=== PATIENT | male | born 1945 | race Caucasian/White ===

== ENCOUNTER 2018-12-11 11:27 | Observation (INO) | payer OTHER, MEDICARE ==
[2018-12-11 12:08] LABS: Absolute Lymphocytes (CBC) 1.5 K/uL (0.7-4.9); Absolute Monocytes 0.7 K/uL (0.1-1.3); Absolute Neutrophil 3.7 K/uL (1.8-8.0); Basophils % 0.7 % (0-1.3); Eosinophils % 2.4 % (0-4.4); Hematocrit 42.3 % (39.6-49.0); Lymphocytes % 24.3 % (15.3-44.8); MPV 9.6 fL (7.6-11.3); Monocytes % 11.8 % (3.3-12.3); RBC Red Blood Cell Count 4.32 M/uL (4.33-5.43)
[2018-12-11 12:42] LABS: Albumin 3.5 g/dL (3.4-5.0); Bilirubin Total 0.7 mg/dL (0.2-1.0); Magnesium 1.9 mg/dL (1.8-2.4); Potassium 4.4 mmol/L (3.5-5.1); Protein, Total 6.9 g/dL (6.4-8.2); Troponin (Emerg Dept Use Only) 0.03 ng/mL (0.0-0.045)
--- NOTE | 2018-12-11 12:56 | RAD REPORT ---
EXAM DESCRIPTION: Lizzeth Single View12/11/2018 12:47 pm CLINICAL HISTORY: Chest pain COMPARISON: 2017 FINDINGS: The lungs appear clear of acute infiltrate. The heart is normal size IMPRESSION: No acute abnormalities displayed
--- NOTE | 2018-12-11 13:33 | RAD REPORT ---
EXAM DESCRIPTION: CT - Chest For Pe Angio - 12/11/2018 1:21 pm CLINICAL HISTORY: Chest pain, shortness of breath, elevated D-dimer COMPARISON: None. TECHNIQUE: Dynamically enhanced 3 mm thick images of the chest were obtained during administration o f approximately 150mL Isovue 370 IV contrast. Coronal and oblique MIP reconstruction images were gene rated and reviewed. Exam utilizes a protocol to evaluate the pulmonary arterial tree. All CT scans are performed using dose optimization technique as appropriate and may include automated exposure control or mA/KV adjustment according to patient size. FINDINGS: No pulmonary emboli are identified. The aorta as imaged shows no acute or suspicious finding. No pericardial thickening or effusion. Card iomegaly is present. No acute infiltrate in the lung parenchyma. There is a pleural abutting nodule or area of pleural thi ckening in the lateral upper left lung field (image 30/95) measuring 12 x 4 mm. There is evidence for old rib trauma in this region and this may be reactive pleural thickening from old trauma. This can be monitored with re-evaluation CT imaging in 6 months. No other area of pleural thickening or nodula rity. No suspicious nodule of the lung parenchyma. No pleural effusion or pleural thickening. No mediastinal or hilar suspicious masses. No chest wall masses or abnormal axillary lymphadenopathy. IMPRESSION: No pulmonary emboli identified. Pleural abutting nodule or focus of pleural thickening lateral left upper lung field warranting re-ev aluation CT imaging in 6 months.
[2018-12-11] MEDS ORDERED: HEPARIN 5000 UNIT/ML 1 ML VIAL ONE (13:37)
[2018-12-11] MEDS ORDERED: HEPARIN/D5W 25,000 UNIT/500 ML BAG IV ONE (13:37)
--- NOTE | 2018-12-11 14:14 | EDPHYS ---
Physician Documentation [facility] Name: Jhonatan Haro Sr Age: 73 yrs Sex: Male : 1945 Arrival Date: 12/11/2018 Time: 11:31 Bed 2 Private MD: Unknown, Unknown ED Physician Kan Lawson HPI: 12/11 11:30 This 53 yrs old Male presents to ER via Unassigned with complaints of Syncope.ps1 11:30 Patient brought in by EMS for reported possible STEMI. Pt does not have EKG with STEMI ps1 criteria. Had syncopal event x2 now diaphoretic while working in [employer]. 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 No hx of cardiac hx. No CP at this time. On gabapentin. . Historical: - Allergies: 11:37 No Known Allergies; sg - Home Meds: 11:37 gabapentin 300 mg oral cap 1 cap 3 times per day [Active]; sg - PMHx: 11:37 Diabetes - NIDDM; sg - PSHx: 11:37 Appendectomy; sg - Immunization history:: Adult Immunizations up to date. - Social history:: Smoking status: Patient/guardian denies using tobacco. - Ebola Screening: : Patient negative for fever greater than or equal to 101.5 degrees Fahrenheit, and additional compatible Ebola Virus Disease symptoms Patient denies exposure to infectious person Patient denies travel to an Ebola-affected area in the 21 days before illness onset No symptoms or risks identified at this time. ROS: 11:30 Constitutional: Negative for fever, chills, and weight loss, Eyes: Negative for injury, ps1 pain, redness, and discharge, ENT: Negative for injury, pain, and discharge, Cardiovascular: Negative for chest pain, palpitations, and edema, Respiratory: Negative for shortness of breath, cough, wheezing, and pleuritic chest pain, Abdomen/GI: Negative for abdominal pain, nausea, vomiting, diarrhea, and constipation, MS/Extremity: Negative for injury and deformity. 11:30 Skin: Positive for diaphoresis. 11:30 Neuro: Positive for syncope. Exam: 11:30 Constitutional: This is a well developed, well nourished patient who is awake, alert, ps1 and in no acute distress. Head/Face: Normocephalic, atraumatic. Eyes: Pupils equal round and reactive to light, extra-ocular motions intact. Lids and lashes normal. Conjunctiva and sclera are non-icteric and not injected. Chest/axilla: Normal chest wall appearance and motion. Nontender with no deformity. No lesions are appreciated. Cardiovascular: Regular rate and rhythm. No gallops, murmurs, or rubs. Normal PMI, no JVD. No pulse deficits. Respiratory: Lungs have equal breath sounds bilaterally, clear to auscultation and percussion. No rales, rhonchi or wheezes noted. No increased work of breathing, no retractions or nasal flaring. Abdomen/GI: Soft, non-tender, with normal bowel sounds. No distension or tympany. No guarding or rebound. No evidence of tenderness throughout. 11:30 Skin: Appearance: diaphoresis is noted. Vital Signs: 11:30 BP 105 / 67; Pulse 60; Resp 18; Temp 97.2; Pulse Ox 98% on R/A; Pain 2/10; sg 13:11 Weight 105.69 kg; ph 15:54 BP 124 / 77; Pulse 58; Resp 17 S; Pulse Ox 100% on R/A; Pain 0/10; sg NIH Stroke Scale Scores: 11:31 NIHSS Score: 0 sg MDM: 11:35 Patient medically screened. ps1 12/11 11:30 Order name: CBC with Diff 12/11 11:30 Order name: Magnesium 12/11 11:30 Order name: NT PRO-BNP 12/11 11:30 Order name: Troponin (emerg Dept Use Only) ps1 12/11 11:30 Order name: CMP ps1 12/11 11:38 Order name: DD ps1 12/11 13:27 Order name: CBC with Automated Diff; Complete Time: 14:06 EDMS 12/11 13:27 Order name: D-Dimer; Complete Time: 14:06 EDMS 12/11 13:27 Order name: Comprehensive Metabolic Panel; Complete Time: 14:06 EDMS 12/11 13:27 Order name: Troponin (Emerg Dept Use Only); Complete Time: 14:06 EDMS 12/11 13:27 Order name: NT PRO-BNP; Complete Time: 14:06 EDMS 12/11 13:27 Order name: Magnesium; Complete Time: 14:06 EDMS 12/11 11:30 Order name: EKG; Complete Time: 13:29 ps1 12/11 11:30 Order name: Cardiac monitoring; Complete Time: 11: ps1 12/11 11:30 Order name: EKG - Nurse/Tech; Complete Time: : ps1 12/11 11:30 Order name: IV Saline Lock; Complete Time: : ps1 12/11 11:30 Order name: Labs collected and sent; Complete Time: : ps1 12/11 11:30 Order name: O2 Per Protocol; Complete Time: : ps1 12/11 11:30 Order name: O2 Sat Monitoring; Complete Time: : ps1 12/11 13:27 Order name: RAD; Complete Time: 14:06 EDMS 12/11 13:27 Order name: EKG Electrocardiogram EDMS 12/11 13:27 Order name: Chest For Pe Angio; Complete Time: 14:06 EDMS 12/11 13:27 Order name: Echo with Doppler EDMS 12/11 13:27 Order name: Carotid Artery Bilateral; Complete Time: 14:39 EDMS EC: Rate is 62 beats/min. Rhythm is regular. QRS [place] is Normal. [place] interval is normal. QRS ps1 interval is normal. QT interval is normal. Q waves are Present in leads II, III, aVF. T waves are Flattened in leads I, aVL, V5, V6. No ST changes noted. Clinical impression: NSR w/ Non-specific ST/T Changes. Interpreted by me. Administered Medications: 16:10 Not Given (Patient Refused): Heparin (DVT/PE- Bolus per protocol) - HEParin 80 units/kg sg IVP once; Max 8,000 units 16:11 Not Given (Patient Refused): Heparin (DVT/PE Drip) 18 units/kg/hr - (HEParin 36615 sg units, D5W 500 ml) IV at calculated rate Per protocol; Max initial rate 1800 units/hr Disposition: 12/11/18 14:13 Hospitalization ordered by Stanton Alba for Observation. Preliminary diagnosis is Syncope and collapse. - Bed requested for Telemetry/MedSurg (observation). - Status is Observation. sg - Condition is Stable. - Problem is new. - Symptoms are resolved. UTI on Admission? No NIH Stroke Scale - NIH Stroke Score Date: 12/11/2018 Time: 11:31 Total Score = 0 1a. Level of Consciousness (LOC) - 0(Alert) 1b. Level of Consciousness (LOC) (Year \T\ Age) - 0(Both) 1c. LOC Commands (Open \T\ Closes Eyes/Truck Driver Instructor) - 0(Both) 2. Best Gaze (Lateral Gaze Paresis) - 0(Normal) 3. Visual Field Loss - 0(No visual loss) 4. Facial Palsy - 0(Normal) 5a. Left Arm: Motor (10-second hold) - 0(No drift) 5b. Right Arm: Motor (10-second hold) - 0(No drift) 6a. Left Leg: Motor (5-second hold - always test supine) - 0(No drift) 6b. Right Leg: Motor (5-second hold - always test supine) - 0(No drift) 7. Limb Ataxia (finger/nose \T\ heel/haney - test with eyes open) - 0(Absent) 8. Sensory Loss (pinprick arms/legs/face) - 0(Normal) 9. Best Language: Aphasia (description/naming/reading) - 0(No aphasia) 10. Dysarthria (speech clarity - read or repeat words) - 0(Normal) 11. Extinction and Inattention (visual/tactile/auditory/spatial/personal) - 0(No abnormality) Initials: sg Signatures: Dispatcher [employer] EDMarisol Merino RN RN dw Gay, Steven, RN RN sg Williams, Irene, RN RN Kan Lawson MD MD ps1 Corrections: (The following items were deleted from the chart) 13:32 13:30 Chest For PE Angio+CT.RAD.BRZ ordered. EDLA EDLA 13:52 13:29 Chest Single View+RAD.RAD.BRZ ordered. EDLA EDMS 14:36 14:25 Head Brain Wo Cont+CT.RAD.BRZ ordered. EDLA EDMS 14:54 14:13 Hospitalization Ordered by Stanton Alba DO for Observation. Preliminary diagnosis is Syncope and collapse. Bed requested for Telemetry/MedSurg (observation). Status is Observation. Condition is Stable. Problem is new. Symptoms are resolved. UTI on Admission? No. ps1 15:05 14:54 12/11/2018 14:13 Hospitalization Ordered by Stanton Alba DO for dw Observation. Preliminary diagnosis is Syncope and collapse. Bed requested for Telemetry/MedSurg (observation). Status is Observation. Condition is Stable. Problem is new. Symptoms are resolved. UTI on Admission? No. dw 16:09 15:05 12/11/2018 14:13 Hospitalization Ordered by Stanton Alba DO for sg Observation. Preliminary diagnosis is Syncope and collapse. Bed requested for Telemetry/MedSurg (observation). Status is Observation. Condition is Stable. Problem is new. Symptoms are resolved. UTI on Admission? No. dw
--- NOTE | 2018-12-11 14:14 | ER ---
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 Transition of care: patient was not received from another setting of care. Onset of symptoms was December 11, 2018. Risk Assessment: Do you want to hurt yourself or someone else? Patient reports no desire to harm self or others. Initial Sepsis Screen: Does the patient meet any 2 criteria? No. Patient's initial sepsis screen is negative. Does the patient have a suspected source of infection? No. Patient's initial sepsis screen is negative. Care prior to arrival: Medication(s) given: ASA, 81 mg, x 1, Nitroglycerin, x 2, IV initiated. 20 GA, in the right antecubital area, Glucose check: 181 Oxygen administered. via nasal cannula. 11:31 Acuity: ROBLES 2 11:31 Method Of Arrival: EMS: [facility] Triage Assessment: 11:37 General: Appears in no apparent distress. ill, well groomed, well developed, well sg nourished, Behavior is calm, cooperative, appropriate for age. Pain: Denies pain. Neuro: Level of Consciousness is awake, alert, obeys commands, Oriented to person, place, time, Track Fitter are equal bilaterally Moves all extremities. Speech is normal, Facial symmetry appears normal, Pupils are PERRLA, Reports weakness throughout entire body. Cardiovascular: Capillary refill is brisk in bilateral fingers Patient's skin is warm and dry. Chest pain is denied. Respiratory: Airway is patent Respiratory effort is even, unlabored, Respiratory pattern is regular, symmetrical. Derm: Skin is fragile, is thin, Skin is clammy, Skin is pale, Skin temperature is cool. Musculoskeletal: No signs and/or symptoms reported regarding the musculoskeletal system. Historical: - Allergies: 11:37 No Known Allergies; sg - Home Meds: 11:37 gabapentin 300 mg oral cap 1 cap 3 times per day [Active]; sg - PMHx: 11:37 Diabetes - NIDDM; sg - PSHx: 11:37 Appendectomy; sg - Immunization history:: Adult Immunizations up to date. - Social history:: Smoking status: Patient/guardian denies using tobacco. - Ebola Screening: : Patient negative for fever greater than or equal to 101.5 degrees Fahrenheit, and additional compatible Ebola Virus Disease symptoms Patient denies exposure to infectious person Patient denies travel to an Ebola-affected area in the 21 days before illness onset No symptoms or risks identified at this time. Screenin:30 Abuse screen: Denies threats or abuse. Denies injuries from another. Nutritional sg screening: No deficits noted. Tuberculosis screening: No symptoms or risk factors identified. Never had TB. Fall Risk None identified. Assessment: 12:30 General: Appears in no apparent distress. well groomed, well developed, well nourished, sg Behavior is calm, cooperative, appropriate for age. Pain: Denies pain. Neuro: No deficits noted. Neuro: Level of Consciousness is awake, alert, obeys commands, Oriented to person, place, time, Track Fitter are equal bilaterally Moves all extremities. Full function Gait is steady, Speech is normal, Facial symmetry appears normal. Cardiovascular: Heart tones S1 S2 present Capillary refill is brisk in bilateral fingers Patient's skin is warm and dry. Chest pain is denied. Respiratory: Airway is patent Respiratory effort is even, unlabored, Respiratory pattern is regular, symmetrical, Breath sounds are clear Denies shortness of breath labored breathing, pain with respiration. GI: Abdomen is round non-distended, Bowel sounds present X 4 quads. : No signs and/or symptoms were reported regarding the genitourinary system. EENT: No signs and/or symptoms were reported regarding the EENT system. Derm: Skin is pink, warm \T\ dry. Musculoskeletal: No signs and/or symptoms reported regarding the musculoskeletal system. 12:40 Reassessment: Strict Bedrest precautions implemented, pt and pt family stated sg understanding. 13:47 Reassessment: pt remains off the unit in radiology at this time. sg 14:40 Reassessment: Patient appears in no apparent distress at this time. Patient and/or sg family updated on plan of care and expected duration. Pain level reassessed. Patient is alert, oriented x 3, equal unlabored respirations, skin warm/dry/pink. Patient denies pain at this time. Patient states feeling better. 15:40 Reassessment: Patient appears in no apparent distress at this time. Patient and/or sg family updated on plan of care and expected duration. Pain level reassessed. Patient is alert, oriented x 3, equal unlabored respirations, skin warm/dry/pink. pt updated on POC and need for imaging of the head, pt informed of order for blood thinning medication Heparin, pt stated understanding, reports would like to wait for imaging to be completed prior to administration of medication Patient states feeling better. Vital Signs: 11:30 BP 105 / 67; Pulse 60; Resp 18; Temp 97.2; Pulse Ox 98% on R/A; Pain 2/10; sg 13:11 Weight 105.69 kg; ph 15:54 BP 124 / 77; Pulse 58; Resp 17 S; Pulse Ox 100% on R/A; Pain 0/10; sg NIH Stroke Scale Scores: 11:31 NIHSS Score: 0 sg ED Course: 11:29 Kan Lawson MD is Attending Physician. ps1 11:31 Patient arrived in ED. ag5 11:31 Unknown, Unknown is Private Physician. ag5 11:31 Arm band placed on. sg 11:34 Triage completed. sg 11:39 Haroldo Walton, RN is Primary Nurse. sg 11:40 EKG done, by medical radiation tech. reviewed by Kan Lawson MD. at1 12:30 Patient has correct armband on for positive identification. sg 12:42 X-ray completed. Portable x-ray completed in exam room. Patient tolerated procedure jb2 well. 13:27 Chest Single View In Process Unspecified. iw 13:27 Chest For Pe Angio In Process Unspecified. iw 13:43 Carotid Artery Bilateral In Process Unspecified. EDMS 13:57 Patient moved back from radiology. sg 14:09 Ultrasound completed. hr 14:13 Stanton Alba DO is Hospitalizing Provider. ps1 16:00 No provider procedures requiring assistance completed. sg 16:10 Patient admitted, IV remains in place. intact, No redness/swelling at site. sg Administered Medications: 16:10 Not Given (Patient Refused): Heparin (DVT/PE- Bolus per protocol) - HEParin 80 units/kg sg IVP once; Max 8,000 units 16:11 Not Given (Patient Refused): Heparin (DVT/PE Drip) 18 units/kg/hr - (HEParin 03559 sg units, D5W 500 ml) IV at calculated rate Per protocol; Max initial rate 1800 units/hr Outcome: 14:13 Decision to Hospitalize by Provider. ps1 16:05 Admitted to Med/surg accompanied by tech, via wheelchair, room 232, with chart, Report sg called to Bogdan JEFF 16:05 Condition: stable 16:05 Instructed on the need for admit, medication usage, safety practices, Demonstrated understanding of instructions. 16:09 Patient left the ED. NIH Stroke Scale - NIH Stroke Score Date: 12/11/2018 Time: 11:31 Total Score = 0 1a. Level of Consciousness (LOC) - 0(Alert) 1b. Level of Consciousness (LOC) (Year \T\ Age) - 0(Both) 1c. LOC Commands (Open \T\ Closes Eyes/Instructional Design Consultant) - 0(Both) 2. Best Gaze (Lateral Gaze Paresis) - 0(Normal) 3. Visual Field Loss - 0(No visual loss) 4. Facial Palsy - 0(Normal) 5a. Left Arm: Motor (10-second hold) - 0(No drift) 5b. Right Arm: Motor (10-second hold) - 0(No drift) 6a. Left Leg: Motor (5-second hold - always test supine) - 0(No drift) 6b. Right Leg: Motor (5-second hold - always test supine) - 0(No drift) 7. Limb Ataxia (finger/nose \T\ heel/haney - test with eyes open) - 0(Absent) 8. Sensory Loss (pinprick arms/legs/face) - 0(Normal) 9. Best Language: Aphasia (description/naming/reading) - 0(No aphasia) 10. Dysarthria (speech clarity - read or repeat words) - 0(Normal) 11. Extinction and Inattention (visual/tactile/auditory/spatial/personal) - 0(No abnormality) Initials: Signatures: Dispatcher [employer] EDHaroldo Neri RN RN sg Matt Orourke jb2 Poornima Covington Irene, RN RN Suzie Cardona, diaper machine tender EKG Tat1 Penny Dukes RN RN ph Kan Lawson MD MD ps1 Chris, Jazlyn ag5
--- NOTE | 2018-12-11 14:28 | RAD REPORT ---
EXAM DESCRIPTION: US - CP - 12/11/2018 2:11 pm CLINICAL HISTORY: Syncope COMPARISON: None. TECHNIQUE: Real-time sonographic evaluation of both carotid systems was performed. Salazar scale and Do ppler interrogation were performed with waveform tracing bilaterally. FINDINGS: Normal high resistance waveforms are noted in both external carotid arteries. The common c arotid arteries and internal carotid arteries show normal low resistance waveforms. Minimal plaquing in the right common carotid artery with focal calcified plaquing in the right caroti d bulb. Minimal plaquing is seen in the left common carotid artery with only mild left bulb plaquing changes present. Peak systolic and end diastolic velocity values and the ICA/CCA ratios are in the no n-hemodynamically significant range. Antegrade flow seen in both vertebral arteries. Velocity values and ratios were recorded and are retained in the patient's imaging records. IMPRESSION: Mild bilateral common carotid plaquing changes with focally more pronounced calcified pl aquing in the right carotid bulb. Currently the plaquing changes do not result in hemodynamically significant degrees of stenosis.
--- NOTE | 2018-12-11 14:49 | P.HP ---
Certification for Inpatient Patient admitted to: Observation With expected LOS: <2 Midnights Patient will require the following post-hospital care: None Practitioner: I am a practitioner with admitting privileges, knowledge of patient current condition, hospital course, and medical plan of care. Services: Services provided to patient in accordance with Admission requirements found in Title 42 Section 412.3 of the Code of Federal Regulations Patient History Date of Service: 12/11/18 Primary Care Provider: Dr. Castillo([place], [place]) Reason for admission: Syncope History of Present Illness: 73-year-old male presented to the emergency room after 2 syncopal episodes. 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 He was with some people doing some work. He went out to his shed to get a gasket for the problem that he was trying to resolve. At that time he had a syncopal episode. He did feel lightheaded. He denied any chest pain, shortness of breath or palpitation. There is no evidence of nausea, vomiting or defecation. He fell to the ground but was able to get help upon landing by the people around him. The episode lasted about 12 seconds. He then had another episode of syncope while sitting down. He was sent to the ER for further evaluation. In the ER patient evaluated. On lab white count 6.1, hemoglobin 14. Sodium within normal range. Blood sugar 181. Creatinine 1.16 with a GFR 62. D-dimer elevated at 2779. Troponin 0[address] angiogram showed no infiltrate or pulmonary embolism. A left upper lobe nodule was identified. Chest x-ray unremarkable. There was some suspicion of cardiac etiology. ER consulted with cardiology who evaluated the patient. No significant EKG changes noted. Patient was admitted for further evaluation. When I saw the patient ER, he appeared comfortable. at bedside. He does have a history of diabetes, diabetic neuropathy, hypothyroidism, depression and dementia. He drinks alcohol on occasion. He quit smoking many years ago. There is a family history of heart disease and stroke. reports that he had an MRI of brain with Neurology several months ago. She does not recall the exact results. Patient has not had any prior syncopal episode. No recent medication changes. Allergies No Known Allergies Allergy (Unverified 12/11/18 11:43) Home medications list reviewed: Yes - Past Medical/Surgical History Diabetic: Yes -: Diabetes mellitus type 2 -: Hypothyroidism -: Depression -: Dementia -: Diabetic neuropathy Past Surgical History: Reviewed- Non-Contributory Psychosocial/ Personal History: Patient is - Family History Brother -: Heart disease, Stroke - Social History Smoking Status: Former smoker Alcohol use: Yes CD- Drugs: No Caffeine use: Yes Place of Residence: Home Review of Systems General: Weakness, As per HPI Eyes: Unremarkable ENT: Unremarkable Respiratory: Unremarkable Cardiovascular: Light Headedness, As per HPI Gastrointestinal: Unremarkable Genitourinary: Unremarkable Musculoskeletal: Unremarkable Integumentary: Unremarkable Neurological: As per HPI Lymphatics: Unremarkable Physical Examination - Physical Exam General: Alert, In no apparent distress, Oriented x3, Cooperative HEENT: Atraumatic, Normocephalic, PERRLA, Other (Dry mucous membranes) Neck: Supple, No Thyromegaly Respiratory: Clear to auscultation bilaterally, Normal air movement Cardiovascular: Normal pulses, Regular rate/rhythm Gastrointestinal: Normal bowel sounds, Soft and benign, Non-distended, No tenderness, No masses, No rebound, No guarding Musculoskeletal: No contractures, No erythema, No tenderness, No warmth Integumentary: No tenderness/swelling, No erythema, No warmth, No cyanosis Neurological: Normal speech, Normal strength at 5/5 x4 extr, Normal tone, Sensation intact, Cranial nerves 3-12 intact, Normal affect - Studies Laboratory Data (last 24 hrs) 12/11/18 11:50: Sodium 141, Potassium 4.4, BUN 17, Creatinine 1.16, Glucose 181 H, Magnesium 1.9, Total Bilirubin 0.7, AST 27, ALT 24, Alkaline Phosphatase 75 12/11/18 11:50: WBC 6.1, Hgb 14.7, Hct 42.3, Plt Count 221 Assessment and Plan - Plan Impression: Syncope etiology unknown suspect heat exhaustion versus cardiac in nature Diabetes mellitus type 2 Diabetic neuropathy Hypothyroidism Depression Dementia Plan: Syncope etiology unknown suspect heat exhaustion versus cardiac in nature: Patient will be admitted for further evaluation. Echocardiogram to be obtained. Patient has seen Cardiology. Will discuss with cardiology further. Will obtain stroke protocol MRI. Carotid Doppler shows no significant carotid stenosis. Patient may have had heat exhaustion. Will start IV fluids. Will continue to reassess. Will monitor closely. Continue with cardiac enzymes and telemetry. Will physical therapy assess ambulation. Will also obtain orthostatics. Will provide DVT prophylaxis-Lovenox. Will start aspirin and Lipitor. Blood pressure appears stable. If significantly improved by tomorrow anticipate discharge. Will discuss with his neurologist as well. Diabetes mellitus type 2: Blood sugars appear control. Will continue insulin sliding scale. Will monitor closely. Diabetic neuropathy: Will hold his gabapentin at this time. Hypothyroidism: Will check tsh and free T4. Will restart his thyroid medication. Depression: Will restart his medication. Dementia: Will restart his medication. Discharge Plan: Home Plan to discharge in: 24 Hours - Advance Directives Does patient have a Living Will: No Does patient have a Durable POA for Healthcare: No - Code Status/Comfort Care Code Status Assessed: Yes (Patient is full code.) Time Spent Managing Pts Care (In Minutes): 55
[2018-12-11] MEDS: NA CHLORIDE 0.9% 1,000 ML IV SCH (16:18)
[2018-12-11] MEDS ORDERED: ACETAMINOPHEN 500 MG TAB PO PRN (16:18)
[2018-12-11] MEDS ORDERED: ONDANSETRON 4 MG/2 ML VIAL IV PRN (16:18)
[2018-12-11] MEDS: INSULIN -REGULAR HUMAN 50 UNIT/0.5 ML ML SQ SCH ×2 (16:30→22:09)
--- NOTE | 2018-12-11 17:19 | EKG ---
Test Date: 2018-12-11 Test Time: 11:28:03 Nut Former: STALIN MEASUREMENT RESULTS: Intervals: Rate: 62 PA: 128 QRSD: 82 QT: 438 QTc: 444 Dan[place]: P: -15 PA: 128 QRS: 18 T: 49 INTERPRETIVE STATEMENTS: Normal sinus rhythm Inferior infarct, age undetermined Abnormal ECG No previous ECG available for comparison Electronically Signed On 12-11-18 17:17:42 CDT by Carl Diego
--- NOTE | 2018-12-11 17:19 | EKG ---
Test Date: 2018-12-11 Test Time: 11:56:43 Allied [employer] Instructor: [facility] MEASUREMENT RESULTS: Intervals: Rate: 59 CO: 142 QRSD: 84 QT: 454 QTc: 449 [place]: P: CO: 142 QRS: 15 T: 69 INTERPRETIVE STATEMENTS: Sinus bradycardia Inferior infarct, age undetermined Abnormal ECG Compared to ECG 12/11/2018 11:28:03 Sinus rhythm no longer present Myocardial infarct finding still present Electronically Signed On 12-11-18 17:17:36 CDT by Carl Diego
--- NOTE | 2018-12-11 17:22 | CON ---
History Of Present Illness: Mr. Haro is 73, came to the hospital because of syncope. He was at work, it occurred about 9 a.m., he had a normal morning otherwise, ate and drank his usual. He appe ared about ready to faint, coworkers grabbed him, prevented him from hitting the ground. He was unab le to stand up, so an ambulance was called. There has been no chest pain or shortness of breath. Th ere has been some sweating. No nausea or vomiting. No tongue biting, bladder or bowel incontinence or injury. A month ago roughly the same thing happened, but [facility] Since he has been here, an EKG looks normal, chest x-ray looks normal. He has no previous hi story of myocardial infarction, stroke, or vascular disease, uses no tobacco, no alcohol. He takes g abapentin and metformin for peripheral neuropathy, and [id number] diabetes. He has a crea tinine of 1.16, glucose 181, troponin 0.03. Electrolytes normal. Liver functions normal. Glucose 1 81, normal hemoglobin, hematocrit, the D-dimer is elevated, normal white blood cell count and normal platelet count. There is no previous history of myocardial infarction or stroke. No allergies. He uses no tobacco. Rare alcohol. No illegal drugs. Physical Examination: General: He appears to be obese, appears to be his stated age. Alert, oriented, pleasant, not in di stress. Vital Signs: Blood pressure was within normal range. He is in sinus rhythm. Heart rate in the 60s. HEENT: Normal. No nystagmus. Carotids, no bruit. Lungs: Clear. Heart: Unremarkable. Abdomen: Soft. Impression: Mr. Haro had syncope or near syncope for an unknown cause, possibilities are arrhyt hmia, cerebrovascular disease such as subclavian steal syndrome, vasovagal syncope, dehydration. We will get orthostatic vital signs, get carotid Doppler, echocardiogram and MRI or CAT scan of the brain josefina ht be useful. EVELIN/TANNER Voice ID: [id number] Report ID: [id number]
--- NOTE | 2018-12-11 17:27 | ECHO ---
HEIGHT: 6 ft 2 in WEIGHT: 233 lb 0 oz DATE OF STUDY: 12/11/[address]: Carl Diego MD 2-DIMENSIONAL: YES M.MODE: YES DOPPLER: YES COLOR FLOW: YES TDS: PORTABLE: YES DEFINITY: BUBBLE STUDY: DIAGNOSIS: SYNCOPE CARDIAC HISTORY: CATHERIZATION: NO SURGERY: NO PROSTHETIC VALVE: NO PACEMAKER: NO MEASUREMENTS (cm) DIASTOLIC (NORMALS) SYSTOLIC (NORMALS) IVSd 1.0 (0.6-1.2) LA Diam 4.1 (1.9-4.0) LVEF 56% LVIDd 5.4 (3.5-5.7) LVIDs 3.8 (2.0-3.5) %FS 30% LVPWd 1.1 (0.6-1.2) Ao Diam 3.2 (2.0-3.7) 2 DIMENSIONAL ASSESSMENT: RIGHT ATRIUM: NORMAL LEFT ATRIUM: DILATED RIGHT VENTRICLE: NORMAL LEFT VENTRICLE: NORMAL TRICUSPID VALVE: NORMAL MITRAL VALVE: NORMAL PULMONIC VALVE: NORMAL AORTIC VALVE: NORMAL PERICARDIAL EFFUSION: NONE AORTIC ROOT: NORMAL LEFT VENTRICULAR WALL MOTION: NORMAL DOPPLER/COLOR FLOW: MILD MITRAL REGURGITATION. TRACE TRICUSPID REGURGITATION. NORMAL RIGHT VENTRICULAR SYSTOLIC PRESSURE. COMMENTS: NORMAL LEFT VENTRICULAR EJECTION FRACTION. DILATED LEFT ATRIUM. MILD MITRAL REGURGITATION. TRACE TRICUSPID REGURGITATION. TECHNOLOGIST: JULIA PERSAUD
[2018-12-11 17:37] LABS: Urine Appearance CLEAR; Urine Bilirubin NEGATIVE (NEG); Urine Blood NEGATIVE (NEG); Urine Color YELLOW; Urine Glucose TRACE (NEG); Urine Protein NEGATIVE (NEG); Urine Specific Gravity >=1.030 (1.005-1.030); Urine pH 5.5 (5.0-7.0)
[2018-12-11 17:54] LABS: Urine Microscopic Reflex NO UMIC
--- NOTE | 2018-12-11 18:58 | RAD REPORT ---
EXAM DESCRIPTION: MRI - Brain W/Wo Cont - 12/11/2018 6:41 pm CLINICAL HISTORY: Syncope COMPARISON: Outside MRI May 2018 TECHNIQUE: Axial, sagittal, and coronal magnetic images of the brain were obtained. 20 cc MultiHance administered intravenously FINDINGS: Mild signal within periventricular, deep and subcortical white matter may represent ischem ic changes secondary to small vessel disease . The ventricles are normal in caliber. Diffusion-weighted sequences do not demonstrate evidence of an acute infarction. No abnormal enhancement within the brain is seen. An extra-axial fluid collection is not noted. Fluid within the sinuses/mastoids is not seen IMPRESSION: Unremarkable brain MRI.
--- NOTE | 2018-12-11 19:04 | RAD REPORT ---
EXAM DESCRIPTION: MRI - MRA Neck W/Wo Cont - 12/11/2018 6:41 pm CLINICAL HISTORY: Syncope TECHNIQUE: Magnetic resonance angiogram of the neck was performed. 20 cc MultiHance was administered intravenously. 3D MIPS reconstruction performed FINDINGS: The common carotid, left internal carotid and external carotid arteries do not demonstrate a significant stenosis. An aneurysm is not seen. Moderate plaque is present within right carotid bulb The vertebral arteries are codominant. Mild narrowing of the origin of the left vertebral artery. . IMPRESSION: Moderate plaque right carotid bulb appears to result in an approximately 50% stenosis NASCET criteria used. Mild 0-49% stenosis Moderate 50-69% stenosis Severe 70-99% stenosis
--- NOTE | 2018-12-11 19:08 | RAD REPORT ---
EXAM DESCRIPTION: MRI - MRA Head Wo Cont - 12/11/2018 6:40 pm CLINICAL HISTORY: Syncope COMPARISON: None. TECHNIQUE: Magnetic resonance angiogram was performed. 3D MIPS reconstruction performed FINDINGS: The anterior cerebral, middle cerebral, posterior cerebral, distal internal carotid and ba silar arteries do not demonstrate a significant stenosis. An aneurysm is not displayed. IMPRESSION: Unremarkable MRA brain.
[2018-12-11] MEDS: MEMANTINE HCL 10 MG TABLET PO SCH (20:27)
[2018-12-11] MEDS ORDERED: ENOXAPARIN 40 MG/0.4 ML SQ SCH (21:00)
[2018-12-11] MEDS ORDERED: ATORVASTATIN 40 MG TAB PO SCH (21:00)
[2018-12-11 21:32] LABS: CKMB Creatine Kinase MB 3.1 ng/mL (0.3-3.6); Troponin I 0.02 ng/mL (0.0-0.045)
[2018-12-12] MEDS: NA CHLORIDE 0.9% 1,000 ML IV SCH ×2 (04:35→12:18)
[2018-12-12 06:20] LABS: Absolute Lymphocytes (CBC) 1.2 K/uL (0.7-4.9); Absolute Neutrophil 6.7 K/uL (1.8-8.0); Basophils % 0.2 % (0-1.3); Eosinophils % 1.3 % (0-4.4); Hematocrit 41.8 % (39.6-49.0); Lymphocytes % 13.5 % (15.3-44.8); Monocytes % 11.4 % (3.3-12.3); RBC Red Blood Cell Count 4.23 M/uL (4.33-5.43)
[2018-12-12] MEDS ORDERED: LEVOTHYROXINE SOD 0.1 MG TAB PO SCH (06:30)
[2018-12-12 06:55] LABS: CKMB Creatine Kinase MB 2.9 ng/mL (0.3-3.6); Magnesium 2.1 mg/dL (1.8-2.4); Potassium 4.4 mmol/L (3.5-5.1); Thyroid Stimulating Hormone 1.98 uIU/mL (0.360-3.740); Troponin I 0.04 ng/mL (0.0-0.045)
[2018-12-12] MEDS: INSULIN -REGULAR HUMAN 50 UNIT/0.5 ML ML SQ SCH ×2 (07:30→11:30)
[2018-12-12] MEDS ORDERED: BUPROPION HCL XL 150 MG TAB PO SCH (09:00)
[2018-12-12] MEDS ORDERED: ASPIRIN EC 81 MG TAB PO SCH (09:00)
[2018-12-12] MEDS: MEMANTINE HCL 10 MG TABLET PO SCH (09:29)
--- NOTE | 2018-12-12 10:14 | RAD REPORT ---
EXAM DESCRIPTION: RAD - Knee Right 2 View - 12/12/2018 9:44 am CLINICAL HISTORY: Right knee pain FINDINGS: Limited 2 series. Upper the frontal view is limited as the knee is not extended completely. No gross fracture or dislocation seen. Soft tissue swelling Moderate to marked osteoarthritis involves medial, lateral and patellofemoral compartments consisting joint space narrowing and osteophytes. Small joint effusion is suspected
--- NOTE | 2018-12-12 11:02 | P.DS ---
Admission Date: 12/11/18 Discharge Date: 12/12/18 Primary Care Provider: Dr. Castillo([place], [place]) Disposition: ROUTINE DISCHARGE Discharge Condition: GOOD Reason for Admission: Syncope Consultations: Cardiology-Dr. Stephens Procedures: ECHO: Ejection fraction 56% LEFT VENTRICULAR WALL MOTION: NORMAL DOPPLER/COLOR FLOW: MILD MITRAL REGURGITATION. TRACE TRICUSPID REGURGITATION. NORMAL RIGHT VENTRICULAR SYSTOLIC PRESSURE. COMMENTS: NORMAL LEFT VENTRICULAR EJECTION FRACTION. DILATED LEFT ATRIUM. MILD MITRAL REGURGITATION. TRACE TRICUSPID REGURGITATION. MRI Brain: COMPARISON: Outside MRI May 2018 TECHNIQUE: Axial, sagittal, and coronal magnetic images of the brain were obtained. 20 cc MultiHance administered intravenously FINDINGS: Mild signal within periventricular, deep and subcortical white matter may represent ischemic changes secondary to small vessel disease . The ventricles are normal in caliber. Diffusion-weighted sequences do not demonstrate evidence of an acute infarction. No abnormal enhancement within the brain is seen. An extra-axial fluid collection is not noted. Fluid within the sinuses/mastoids is not seen IMPRESSION: Unremarkable brain MRI. MRA Brain: COMPARISON: None. TECHNIQUE: Magnetic resonance angiogram was performed. 3D MIPS reconstruction performed FINDINGS: The anterior cerebral, middle cerebral, posterior cerebral, distal internal carotid and basilar arteries do not demonstrate a significant stenosis. An aneurysm is not displayed. IMPRESSION: Unremarkable MRA brain. MRA Neck: FINDINGS: The common carotid, left internal carotid and external carotid arteries do not demonstrate a significant stenosis. An aneurysm is not seen. Moderate plaque is present within right carotid bulb The vertebral arteries are codominant. Mild narrowing of the origin of the left vertebral artery. IMPRESSION: Moderate plaque right carotid bulb appears to result in an approximately 50% stenosis NASCET criteria used. Carotid doppler: FINDINGS: Normal high resistance waveforms are noted in both external carotid arteries. The common carotid arteries and internal carotid arteries show normal low resistance waveforms. Minimal plaquing in the right common carotid artery with focal calcified plaquing in the right carotid bulb. Minimal plaquing is seen in the left common carotid artery with only mild left bulb plaquing changes present. Peak systolic and end diastolic velocity values and the ICA/CCA ratios are in the non- hemodynamically significant range. Antegrade flow seen in both vertebral arteries. Velocity values and ratios were recorded and are retained in the patient's imaging records. IMPRESSION: Mild bilateral common carotid plaquing changes with focally more pronounced calcified plaquing in the right carotid bulb. Currently the plaquing changes do not result in hemodynamically significant degrees of stenosis. CT scan: FINDINGS: No pulmonary emboli are identified. The aorta as imaged shows no acute or suspicious finding. No pericardial thickening or effusion. Cardiomegaly is present. No acute infiltrate in the lung parenchyma. There is a pleural abutting nodule or area of pleural thickening in the lateral upper left lung field (image 30/95 ) measuring 12 x 4 mm. There is evidence for old rib trauma in this region and this may be reactive pleural thickening from old trauma. This can be monitored with re-evaluation CT imaging in 6 months. No other area of pleural thickening or nodularity. No suspicious nodule of the lung parenchyma. No pleural effusion or pleural thickening. No mediastinal or hilar suspicious masses. No chest wall masses or abnormal axillary lymphadenopathy. IMPRESSION: No pulmonary emboli identified. Pleural abutting nodule or focus of pleural thickening lateral left upper lung field warranting re-evaluation CT imaging in 6 months. Knee xray: FINDINGS: Limited 2 series. Upper the frontal view is limited as the knee is not extended completely. No gross fracture or dislocation seen. Soft tissue swelling Moderate to marked osteoarthritis involves medial, lateral and patellofemoral compartments consisting joint space narrowing and osteophytes. Small joint effusion is suspected Medical Problem list: Syncope etiology unknown suspect heat exhaustion versus cardiac in nature Diabetes mellitus type 2 Diabetic neuropathy Hyperlipidemia, mixed Hypothyroidism Depression Dementia Fall with right knee pain with noted small joint effusion and arthritis Carotid arterial disease with moderate right carotid bulb plaque and 50% stenosis Lateral left upper lung nodule likely benign Brief History of Present Illness: 73-year-old male presented to the emergency room after 2 syncopal episodes. 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 He was with some people doing some work. He went out to his shed to get a gasket for the problem that he was trying to resolve. At that time he had a syncopal episode. He did feel lightheaded. He denied any chest pain, shortness of breath or palpitation. There is no evidence of nausea, vomiting or defecation. He fell to the ground but was able to get help upon landing by the people around him. The episode lasted about 12 seconds. He then had another episode of syncope while sitting down. He was sent to the ER for further evaluation. In the ER patient evaluated. On lab white count 6.1, hemoglobin 14. Sodium within normal range. Blood sugar 181. Creatinine 1.16 with a GFR 62. D-dimer elevated at 2779. Troponin 0[address] angiogram showed no infiltrate or pulmonary embolism. A left upper lobe nodule was identified. Chest x-ray unremarkable. There was some suspicion of cardiac etiology. ER consulted with cardiology who evaluated the patient. No significant EKG changes noted. Patient was admitted for further evaluation. When I saw the patient ER, he appeared comfortable. at bedside. He does have a history of diabetes, diabetic neuropathy, hypothyroidism, depression and dementia. He drinks alcohol on occasion. He quit smoking many years ago. There is a family history of heart disease and stroke. reports that he had an MRI of brain with Neurology several months ago. She does not recall the exact results. Patient has not had any prior syncopal episode. No recent medication changes. Hospital Course: Patient presented with syncope. Patient also had a fall. CT scan chest showed no acute abnormality. Incidental finding of left upper lobe nodule to the lung was identified. Patient was admitted for observation. MRI brain, MRA brain, and neck MRA unremarkable. Echocardiogram unremarkable. Carotid Doppler showed carotid arterial disease with moderate right carotid bulb plaque and 50% stenosis. Cardiac enzymes unremarkable. Patient seen and evaluated by Cardiology. No further cardiac evaluation required at this time. Syncope likely related to heat exhaustion versus cardiac in nature. Patient received IV fluids with improvement. No syncope identified during his stay. No telemetry or EKG changes noted.. At discharge patient will continue with his current medications. Cardiology recommends that the patient follow up in 1-2 weeks to follow up this hospitalization. Patient will have outpatient stress test with cardiology at that time. Patient may require Holter monitor as well. Patient will continue with aspirin 81 mg daily. Patient with diabetes type 2. This is well controlled. At discharge he will continue with his current medication-Metformin 500 mg twice daily. Recommendation is to maintain blood sugars less 140 fasting and less than 200 after meals. Further adjustment can be done by his PCP. Patient with diabetic neuropathy. Patient may continue with gabapentin. Patient with hypothyroidism. This has remained stable. Patient will continue with his medication-Levoxyl 100 mcg daily. Patient with depression. Patient will continue with his medication-Bupropion XL 150 mg daily. Patient is taking medication for insomnia. He is to limit this medication as this may cause increased sedation. Patient with history of dementia. Patient will continue with his current medication. Recommendation to follow up with neurology as directed. Patient found to have hyperlipidemia. Due to his risk factors and carotid arterial disease, he will continue with medication at discharge. Discharge medications includes Lipitor 10 mg daily and fish oil 2000 mg twice daily. This can be followed up with his PCP. Patient had a fall related to syncope. Patient with mild knee pain. X-ray shows no fracture. Small joint effusion with arthritic changes noted. Recommendation is to follow up with orthopedics as an outpatient to further monitor and address. As mentioned above, CT scan did reveal a lateral left upper lobe lung nodule. Recommendation is to recheck CT scan in 6-12 months to monitor stability. This is likely benign. Vital Signs/Physical Exam: Temp Pulse Resp BP Pulse Ox 97.9 F 60 20 147/68 H 97 12/12/18 08:00 12/12/18 08:00 12/12/18 08:00 12/12/18 08:00 12/12/18 08:00 General: Alert, In no apparent distress, Oriented x3, Cooperative HEENT: Atraumatic Neck: Supple Respiratory: Clear to auscultation bilaterally, Normal air movement Cardiovascular: Normal pulses, Regular rate/rhythm Gastrointestinal: Normal bowel sounds, Soft and benign, Non-distended, No ascites, No tenderness, No masses, No rebound, No guarding Musculoskeletal: No erythema, No tenderness, No warmth Integumentary: No erythema, No warmth, No cyanosis, Other (Mild pain to the right knee. Minimal joint effusion noted) Neurological: Normal speech, Normal strength at 5/5 x4 extr, Normal tone, Normal affect Laboratory Data at Discharge: WBC 9.1 K/uL (4.3-10.9) D 12/12/18 05:52 Hgb 14.6 g/dL (13.6-17.9) 12/12/18 05:52 Hct 41.8 % (39.6-49.0) 12/12/18 05:52 Plt Count 176 K/uL (152-406) D 12/12/18 05:52 Sodium 140 mmol/L (136-145) 12/12/18 05:52 Potassium 4.4 mmol/L (3.5-5.1) 12/12/18 05:52 BUN 16 mg/dL (7-18) 12/12/18 05:52 Creatinine 0.93 mg/dL (0.55-1.3) 12/12/18 05:52 Glucose 118 mg/dL (74-106) H 12/12/18 05:52 Magnesium 2.1 mg/dL (1.8-2.4) 12/12/18 05:52 Total Bilirubin 0.7 mg/dL (0.2-1.0) 12/11/18 11:50 AST 27 U/L (15-37) 12/11/18 11:50 ALT 24 U/L (12-78) 12/11/18 11:50 Alkaline Phosphatase 75 U/L (45-117) 12/11/18 11:50 Troponin I 0.04 ng/mL (0.0-0.045) 12/12/18 05:52 Triglycerides 345 mg/dL (<150) H 12/12/18 05:52 Cholesterol 248 mg/dL (<200) H 12/12/18 05:52 HDL Cholesterol 41 mg/dL (40-60) 12/12/18 05:52 Cholesterol/HDL Ratio 6.05 12/12/18 05:52 Home Medications: Bupropion *Xl* [Wellbutrin XL*] 150 mg PO DAILY 12/11/18 Estazolam 2 mg PO PRN 12/11/18 Gabapentin [Neurontin] 600 mg PO TID 12/11/18 Levothyroxine [Synthroid*] 100 mcg PO DAILY 12/11/18 Metformin HCl 500 mg PO BID 12/11/18 Aspirin [Aspirin EC 81 MG] 81 mg PO DAILY #30 tablet. 12/12/18 Atorvastatin Calcium [Lipitor] 40 mg PO BEDTIME #30 tab 12/12/18 Docosahexanoic AC/Epa [Fish Oil 1,000 MG CAP] 2,000 mg PO BID #60 cap 12/12/18 New Medications: Aspirin [Aspirin EC 81 MG] 81 mg PO DAILY #30 tablet. Atorvastatin Calcium [Lipitor] 40 mg PO BEDTIME #30 tab Docosahexanoic AC/Epa [Fish Oil 1,000 MG CAP] 2,000 mg PO BID #60 cap Patient Discharge Instructions: 1. Recommend to follow up with his PCP in 1 week to follow up this hospitalization. 2. Patient presented with syncope. Patient also had a fall. CT scan chest showed no acute abnormality. Incidental finding of left upper lobe nodule to the lung was identified. Patient was admitted for observation. MRI brain, MRA brain, and neck MRA unremarkable. Echocardiogram unremarkable. Carotid Doppler showed carotid arterial disease with moderate right carotid bulb plaque and 50% stenosis. Cardiac enzymes unremarkable. Patient seen and evaluated by Cardiology. No further cardiac evaluation required at this time. Syncope likely related to heat exhaustion versus cardiac in nature. Patient received IV fluids with improvement. No syncope identified during his stay. No telemetry or EKG changes noted.. At discharge patient will continue with his current medications. Cardiology recommends that the patient follow up in 1-2 weeks to follow up this hospitalization. Patient will have outpatient stress test with cardiology at that time. Patient may require Holter monitor as well. Patient will continue with aspirin 81 mg daily. 3. Patient with diabetes type 2. This is well controlled. At discharge he will continue with his current medication- Metformin 500 mg twice daily. Recommendation is to maintain blood sugars less 140 fasting and less than 200 after meals. Further adjustment can be done by his PCP. 4. Patient with diabetic neuropathy. Patient may continue with gabapentin. 5. Patient with hypothyroidism. This has remained stable. Patient will continue with his medication-Levoxyl 100 mcg daily. 6. Patient with depression. Patient will continue with his medication-Bupropion XL 150 mg daily. Patient is taking medication for insomnia. He is to limit this medication as this may cause increased sedation. 7. Patient with history of dementia. Patient will continue with his current medication. Recommendation to follow up with neurology as directed. 8. Patient found to have hyperlipidemia. Due to his risk factors and carotid arterial disease, he will continue with medication at discharge. Discharge medications includes Lipitor 10 mg daily and fish oil 2000 mg twice daily. This can be followed up with his PCP. 9. Patient had a fall related to syncope. Patient with mild knee pain. X-ray shows no fracture. Small joint effusion with arthritic changes noted. Recommendation is to follow up with orthopedics as an outpatient to further monitor and address. Patient may take Tylenol as needed for pain. 10. As mentioned above, CT scan did reveal a lateral left upper lobe lung nodule. Recommendation is to recheck CT scan in 6-12 months to monitor stability. This is likely benign. Diet: AHA Activity: Fall precautions Time spent managing pt's care (in minutes): 55
--- NOTE | 2018-12-12 23:12 | PN ---
Date of Progress Note: 12/12/2018 Subjective: Mr. Haro was seen by Dr. Diego yesterday for syncope thought secondary to vasovaga l reaction or dehydration. An echocardiogram was normal. An MRI of the brain was normal. Carotid D opplers showed minimal carotid disease. He is asymptomatic today. His episode happened after workin g outside in the heat. I feel like he can go home today. We will make an arrangement for him to [facility] an outpatient Lexiscan. ELZBIETA/TANNER Voice ID: [id number] Report ID: [id number]
== END 2018-12-12 13:41 | disposition home or self-care (01) ==
LOC: ER 11:27 → 2ND 14:35
PROVIDERS: ADMIT Family Medicine; ATTEND Family Medicine
DX: R55 Syncope and collapse (principal); E11.40 Type 2 diabetes mellitus with diabetic neuropathy, unspecified; E78.2 Mixed hyperlipidemia; E03.9 Hypothyroidism, unspecified; F32.9 Major depressive disorder, single episode, unspecified; F03.90 Unspecified dementia, unspecified severity, without behavioral disturbance, psychotic disturbance, mood disturbance, and anxiety; M17.11 Unilateral primary osteoarthritis, right knee; M25.461 Effusion, right knee; I65.21 Occlusion and stenosis of right carotid artery; I08.1 Rheumatic disorders of both mitral and tricuspid valves; R91.8 Other nonspecific abnormal finding of lung field; R94.31 Abnormal electrocardiogram [ECG] [EKG]; G47.00 Insomnia, unspecified; W19.XXXA Unspecified fall, initial encounter; Z79.82 Long term (current) use of aspirin; Z79.84 Long term (current) use of oral hypoglycemic drugs; Z79.899 Other long term (current) drug therapy; Z87.891 Personal history of nicotine dependence
CPT/HCPCS: 93005 ×2; 93306; 85025 ×2; 80048; 36415; 83735 ×2; 82550 ×2; 80061; 82962 ×4; 85379; 84443; 81003; 84484 ×3; 82553 ×2; 84439; 80053; 83880; 71275; 71045; 73560; 93880; 70553; 70544; 70549; 99285; Q9967; A9577; J1644; J1650; J7030 ×2; G0378 ×2

== ENCOUNTER 2019-01-02 07:00 | Day surgery (SDC) | payer OTHER, MEDICARE ==
[2019-01-01 15:01] LABS: Absolute Lymphocytes (CBC) 1.1 K/uL (0.7-4.9); Basophils % 0.5 % (0-1.3); Eosinophils % 3.8 % (0-4.4); Hematocrit 44.1 % (39.6-49.0); Lymphocytes % 18.4 % (15.3-44.8); Monocytes % 8.7 % (3.3-12.3); RBC Red Blood Cell Count 4.42 M/uL (4.33-5.43)
[2019-01-01 15:11] LABS: Potassium 4.5 mmol/L (3.5-5.1)
[2019-01-01 15:18] LABS: Protime INR 0.94
--- OUTSIDE RECORDS SUMMARY | 2019-01-02 07:03 | XMS REPORT ---
:1945 Author Organization [facility] Address [address] [place] [address] Dr. Fernandez [address] [place] [id number] Care Team Providers Name Role Phone Unavailable Unavailable Unavailable Problems This patient has no known problems. Allergies, Adverse Reactions, Alerts This patient has no known allergies or adverse reactions. Medications This patient has no known medications.
[2019-01-02] MEDS ORDERED: NA CHLORIDE 0.9% 0 ML ONE ×2 (07:49→09:17)
[2019-01-02] MEDS ORDERED: NA CHLORIDE 0.9% 500 ML ONE (08:00)
[2019-01-02] MEDS ORDERED: HEPA 1000U/500MLS 1,000 UNIT/500 ML BAG IV ONE (08:37)
[2019-01-02] MEDS ORDERED: MIDAZOLAM HCL 2 MG/2 ML INJ ONE ×2 (09:16→09:32)
[2019-01-02] MEDS ORDERED: FENTANYL CITR 100 MCG/2 ML ONE (09:17)
[2019-01-02] MEDS ORDERED: ATROPINE SULF 1 MG/10 ML SYR IV ONE (09:17)
--- NOTE | 2019-01-02 12:16 | OP ---
Surgeon: Chance Stephens MD [employer] Representative: Jennifer Reeder. The patient was admitted as an outpatient today to the [facility] for an outpatient heart catheterizati on. Procedures: Left heart catheterization. Selective coronary arteriogram. Procedure In Detail: The patient was prepped and draped in the routine sterile fashion, was given 6 mg of Versed and 75 of fentanyl for IV sedation. A 6-Turkmen sheath were used to do the catheterizati on. A 6-Turkmen sheath introduced in the right common femoral artery. StarClose was used to close th e case. Angiogram was done using 6-Turkmen Maddy catheter, left and right. He had a dual ostium 1 for the RCA, 1 for the circumflex and 1 for the LAD. His RCA was completely occluded. It was small, nondominant. The circumflex was dominant. He had an 80% stenosis in the first OM. LAD was diffuse ly diseased. He had a 50% proximal LAD and 80% first diagonal. He had an 80% proximal to mid LAD lo ng lesion and had a 90% distal LAD right before the bifurcation of the distal LAD. There were no com plications. Blood Loss: 5 cc. Postoperative Diagnosis: Severe coronary artery disease. Plan: To have the film reviewed by CV surgeons in [place] prior to making final decision whether the y can do the bypass or I can do multiple staged procedure as far as stents are concerned. The case w ill be discussed with the family and the patient. Anesthesia: Total conscious sedation was 30 minutes. ELZBIETA/TANNER Voice ID: [id number] Report ID: [id number]
== END 2019-01-02 12:25 | disposition home health service (06) ==
LOC: CCL 07:00
DX: I25.110 Atherosclerotic heart disease of native coronary artery with unstable angina pectoris (principal); I25.82 Chronic total occlusion of coronary artery; R55 Syncope and collapse; E11.9 Type 2 diabetes mellitus without complications; E03.9 Hypothyroidism, unspecified; N40.0 Benign prostatic hyperplasia without lower urinary tract symptoms; F32.9 Major depressive disorder, single episode, unspecified
CPT/HCPCS: 85025; 80048; 36415; 85610; 82962; 85730; 93454; C1893; C1760; J2250 ×2; J3010; J0583

== ENCOUNTER 2020-02-03 15:22 | Observation (INO) | payer OTHER, MEDICARE ==
--- OUTSIDE RECORDS SUMMARY | 2020-02-03 15:24 | XMS REPORT | Clinical Summary ---
:1945 Author Organization [facility] Address [address] [place] [address] Care Team Providers Name Role Phone Vanesa Nelson Primary Care Provider Allergies No Known Allergies Medications Medication Sig Dispensed Refills Start Date End Date Status buPROPion Take 150 mg by 0 Activ e (WELLBUTRIN SR) 150 mouth daily. MG 12 hr tablet estazolam (PROSOM) 2 Take 2 mg by mouth 0 Active MG tablet nightly. omega-3 fatty Take 2 g by mouth 0 Active acids-fish oil 2 (two) times 340-1,000 mg Cap per daily. capsule gabapentin Take 600 mg by 0 Acti ve (NEURONTIN) 600 MG mouth 3 (three) tablet times daily. levothyroxine Take 100 mcg by 0 Active (SYNTHROID, mouth Every LEVOTHROID) 100 MCG morning on an tablet empty stomach. memantine (NAMENDA) Take 10 mg by 0 Active 10 MG tablet mouth daily. metFORMIN Take 500 mg by 0 Activ e (GLUCOPHAGE) 500 MG mouth 2 (two) tablet times daily with breakfast and dinner. aspirin 81 MG EC Take 81 mg by 0 Active tablet mouth daily. acetaminophen Use as needed per 0 01/15/2019 Active (TYLENOL) 325 MG package tablet instructions for pain. It is over the counter. polyethylene glycol Use daily per 0 01/15/2019 Active (GLYCOLAX) 17 gram package packet instructions. It is over the counter. metoprolol Take 0.5 tablets 30 tablet 5 01/15/2019 01/15/2020 (LOPRESSOR) 25 MG (12.5 mg total) by tablet mouth 2 (two) times daily No more refills through my office. Active Problems Problem Noted Date CAD (coronary artery disease) 01/10/2019 Essential hypertension 01/10/2019 Respiratory insufficiency 01/10/2019 S/P CABG x [address] Oliva 01/10/19 01/10/2019 Coronary artery disease Diabetes mellitus type 2, noninsulin dependent Hypertension High cholesterol Family History Medical History Relation Name Comments Diabetes Brother Heart disease Brother Stroke Brother Lung cancer Father Pancreatic cancer Mother Relation Name Status Comments Brother Father Mother Social History Tobacco Use Types Packs/Day Years Used Date Never Smoker Smokeless Tobacco: Never Used Alcohol Use Drinks/Week oz/Week Comments Yes rarely Alcohol Habits Answer Date Recorded How often do you have a drink containing alcohol? Never 01/05/2019 How many drinks containing alcohol do you have on a typical Not asked day when you are drinking? How often do you have six or more drinks on one occasion? No t asked Sex Assigned at Date Recorded Not on file Job Start Date Occupation Industry Not on file Not on file Not on file Travel History Travel Start Travel End No recent travel history available. Last Filed Vital Signs Not on file Plan of Treatment Health Maintenance Due Date Last Done Comments COLON CANCER SCREENING COLONOSCOPY 1945 DIABETIC EYE EXAM 1955 DIABETIC FOOT EXAM 1955 URINE MICROALBUMIN 1956 PNEUMOCOCCAL 65+ LOW/MEDIUM RISK (1 of 2 - 2011 PCV13) MEDICARE ANNUAL WELLNESS (YEAR 2 or FIRST 05/05/2012 YEAR if no IPPE) HEMOGLOBIN A1C 07/15/2019 01/12/2019 INFLUENZA VACCINE (#1) 2020 04/07/2016, 07/04/2013 Results Not on fileafter 02/02/2019 Insurance Payer Benefit Plan / Group Subscriber ID Type Phone A ddress MEDICARE MEDICARE A B xxxxxxxxxxx Medicare MCR SUPPLEMENT/INDIVIDUAL AARP/[facility] xxxxxxxxxxx Medigap Advance Directives For more information, please contact:[place] [address] [place], [place] [phone] Code Status Date Activated Date Inactivated Comments Full Code 01/11/2019 1:19 PM 01/15/2019 4:18 PM This code status was determined by: Patient Full Code 01/10/2019 8:31 AM 01/11/2019 1:19 PM This code status was determined by: Patient
--- OUTSIDE RECORDS SUMMARY | 2020-02-03 15:26 | XMS REPORT | Continuity of Care Document ---
:1945 Author Organization [facility] t Address Formerly [facility], [id number] [address] [place] [address] Care Team Providers Name Role Phone Omar Vanesa Primary Care Physician MORIS OLIVA Attending Clinician Unavailable EMANUEL BEASLEY Attending Clinician Unavailable MORIS OLIVA Admitting Clinician Unavailable Problems Condition Condition Condition Status Onset Resolution Last Treating Co mments Source Name Details Category Date Date Treatment Clinician Date Essential Essential Disease Active [facility] hypertensi hypertensi 01-10 Latrice kes - on on 00:00: Medical 00 Center Respirator Respirator Disease Active [facility] y y 01-10 Hernán - insufficie insufficie 00:00: Me dical ncy ncy 00 [place] S/P CABG x S/P CABG x Disease Active [facility] 3 by 3 by 01-10 Hernán Oliva 00:00: Medical 01/10/19 01/10/19 00 Center Coronary Coronary Disease [facility] - disease [facility] Diabetes Diabetes Disease Active [facility] mellitus mellitus [facility] - type 2, type 2, Medical noninsulin noninsulin Ce nter dependent dependent Hypertensi Hypertensi Disease Active [facility] on on [facility] High High Disease Active [facility] cholestero cholestero [facility] Allergies, Adverse Reactions, Alerts This patient has no known allergies or adverse reactions. Family History Family Member Diagnosis Comments Start Date Stop Date Source Natural brother Diabetes [facility] Natural brother Heart disease [facility] Natural brother Stroke [facility] Natural father Lung cancer [facility] Natural mother Pancreatic cancer [facility] Social History Social Habit Start Date Stop Date Quantity Comments Source History SDOH Alcohol [facility] - Std Drinks [facility] History SDOH Alcohol [facility] Binge [facility] Sex Assigned At [facility] Alcohol Comment 2019-02-28 2019-02-28 rarely [facility] - 00:[facility]:00 00:00:00 [facility] History SDOH Alcohol 2019-01-05 2019-01-05 1 [facility] - Frequency 00:00:00 00:00:00 [facility] Smoking Status Start Date Stop Date Source Never smoker [facility] Ordered Filled Start Stop Current Ordering Indication Dosage Frequency Signature Comments Components Source Medication Medication Date Date Medication? Clinician (SIG) Name Name acetaminoph Yes Use as [facility] en 7-15 needed per [facility] - (TYLENOL) 00:00: package Medic al 325 MG 00 [facility] tablet ns for pain. It is over the counter. polyethylen Yes Use daily [facility] e glycol 7-15 per [facility] - (GLYCOLAX) 00:00: package [facility]i shine 17 gram 00 [facility] packet ns. It is over the counter. metoprolol 2020- No 12.5mg Q.5D Take 0.[address] [facility] [address] (LOPRESSOR) 7-15 07-14 tablets Luke s - 25 MG 00:00: 23:59 (12.5 mg Medical tablet 00 :00 total) by Center mouth 2 (two) times daily No more refills through my office. aspirin 81 Yes 81mg QD Take [address] MG EC 7-09 by mouth [facility] - tablet 09:42: daily. Medical Center gabapentin Yes 600mg [id number] Take [address] (NEURONTIN) 7-09 [id number] mg by L ukes - 600 MG 09:17: 3D mouth 3 Medical tablet 30 (three) Center times daily. levothyroxi Yes 100ug Take [address] ne 7-09 mcg by [facility] - (SYNTHROID, 09:17: mouth Medic al LEVOTHROID) 30 Every Center 100 MCG morning on tablet an empty stomach. memantine Yes 10mg QD Take [address] (NAMENDA) 7-09 by mouth [facility] - 10 MG 09:17: daily. Medical tablet 30 Center metFORMIN Yes 500mg Take [address] [facility] (GLUCOPHAGE 7-09 mg by [facility] - ) 500 MG 09:17: mouth 2 Medica l tablet 30 (two) Center times daily with breakfast and dinner. buPROPion Yes 150mg QD Take [address] (WELLBUTRIN 7-09 mg by [facility] - SR) 150 MG 09:17: mouth Medica l 12 hr 29 daily. Center tablet estazolam Yes 2mg QD Take [address] [address] (PROSOM) 2 7-09 by mouth [facility] - MG tablet 09:17: nightly. Medi shine 29 Center omega-3 Yes 2g Q.5D Take [address] [address] fatty 7-09 by mouth 2 [facility] - acids-fish 09:17: (two) Medica l oil 29 times Center 340-1,000 daily. mg Cap per capsule Procedures This patient has no known procedures. Plan of Care Planned Activity Planned Date Details Comments Source Future Scheduled 2020-03-04 INFLUENZA VACCINE (#1) [facility] - Test 00:00:00 [code = INFLUENZA Medical Ce nter VACCINE (#1)] Future Scheduled 2019-07-[address] Latrice kes - Test 00:00:00 measurement Medical Center (procedure) [code = 26483758] Future Scheduled 2012-05-[address] [facility] - Test 00:00:00 WELLNESS (YEAR 2 or Medical Center FIRST YEAR if no IPPE) [code = MEDICARE ANNUAL WELLNESS (YEAR 2 or FIRST YEAR if no IPPE)] Future Scheduled 2011 PNEUMOCOCCAL [address] - Test 00:00:00 LOW/MEDIUM RISK (1 of Medica l Center 2 - PCV13) [code = PNEUMOCOCCAL 65+ LOW/MEDIUM RISK (1 of 2 - PCV13)] Future Scheduled [address] DIABETIC EYE EXAM [facility] - Test 00:00:00 [code = DIABETIC EYE Medical Center EXAM] Future Scheduled [address] Shayla es - Test 00:00:00 examination Medical Center (regime/therapy) [code = 157486685] Future Scheduled 1956 Urine screening for [facility] - Test 00:00:00 protein (procedure) Medical Center [code = 775755432] Future Scheduled [address] [facility] Shayla [facility] - Test 00:00:00 malignant neoplasm of Medica l Center colon (procedure) [code = [id number]] Results Test Description Test Time Test Comments Results Result Comments Source POCT-GLUCOSE METER 2019-01-15 08:21:00 Test Item Value Reference Range Interpretation Comme [facility] POC-GLUCOSE METER (BEAKER) (test 137 mg/dL 70-[address] [facility] [address] [facility] code = 1538) [facility] 7703 0 BASIC METABOLIC [id number] 06:40:00 Test Item Value Reference Range Interpretation Comments SODIUM (BEAKER) 137 meq/L 136-145 (test code = 381) POTASSIUM (BEAKER) 3.3 meq/L 3.5-5.1 L (test code = 379) CHLORIDE (BEAKER) 101 meq/L 98-107 (test code = 382) CO2 (BEAKER) (test 28 meq/L 22-29 code = 355) BLOOD UREA NITROGEN 11 mg/dL 7-21 (BEAKER) (test code = 354) CREATININE (BEAKER) 0.83 mg/dL 0.57-1.25 (test code = 358) GLUCOSE RANDOM 129 mg/dL 70-105 H (BEAKER) (test code = 652) CALCIUM (BEAKER) 9.0 mg/dL 8.4-10.2 (test code = 697) EGFR (BEAKER) (test 91 mL/min/1.73 ESTIMA GUSTAVO GFR IS code = 1092) sq m NOT ACCURATE CREATININE CLEARANCE IN PREDICTING GLOMERULAR FILTRATION RATE . ESTIMATED GFR I S NOT APPLICABLE FOR DIALYSIS PATIEN TS. CBC W/PLT COUNT & AUTO [id number] 06:24:00 Test Item Value Reference Range Interpretation Comments WHITE BLOOD CELL COUNT (BEAKER) 7.4 K/ L 3.5-10.5 (test code = 775) RED BLOOD CELL COUNT (BEAKER) 3.33 M/ L 4.63-6.08 L (test code = 761) HEMOGLOBIN (BEAKER) (test code = 11.1 GM/DL 13.7-17.5 L 410) HEMATOCRIT (BEAKER) (test code = 32.8 % 40.1-51.0 L 411) MEAN CORPUSCULAR VOLUME (BEAKER) 98.5 fL 79.0-92.2 H (test code = 753) MEAN CORPUSCULAR HEMOGLOBIN 33.3 pg 25.7-32.2 H (BEAKER) (test code = 751) MEAN CORPUSCULAR HEMOGLOBIN CONC 33.8 GM/DL 32.3-36.5 (BEAKER) (test code = 752) RED CELL DISTRIBUTION WIDTH 12.7 % 11.6-14.4 (BEAKER) (test code = 412) PLATELET COUNT (BEAKER) (test 210 K/CU MM 150-450 code = 756) MEAN PLATELET VOLUME (BEAKER) 10.5 fL 9.4-12.4 (test code = 754) NUCLEATED RED BLOOD CELLS 0 /100 WBC 0-0 (BEAKER) (test code = 413) NEUTROPHILS RELATIVE PERCENT 68 % (BEAKER) (test code = 429) LYMPHOCYTES RELATIVE PERCENT 16 % (BEAKER) (test code = 430) MONOCYTES RELATIVE PERCENT 12 % (BEAKER) (test code = 431) EOSINOPHILS RELATIVE PERCENT 3 % (BEAKER) (test code = 432) BASOPHILS RELATIVE PERCENT 1 % (BEAKER) (test code = 437) NEUTROPHILS ABSOLUTE COUNT 5.08 K/ L 1.78-5.38 (BEAKER) (test code = 670) LYMPHOCYTES ABSOLUTE COUNT 1.18 K/ L 1.32-3.57 L (BEAKER) (test code = 414) MONOCYTES ABSOLUTE COUNT (BEAKER) 0.88 K/ L 0.30-0.82 H (test code = 415) EOSINOPHILS ABSOLUTE COUNT 0.23 K/ L 0.04-0.54 (BEAKER) (test code = 416) BASOPHILS ABSOLUTE COUNT (BEAKER) 0.04 K/ L 0.01-0.08 (test code = 417) IMMATURE GRANULOCYTES-RELATIVE 0 % 0-1 PERCENT (BEAKER) (test code = 8171) POCT-GLUCOSE [id number] 21:26:00 Test Item Value Reference Range Interpretation Comments POC-GLUCOSE METER 225 mg/dL 70-[address] [facility] [address] (BEAKER) (test code = JANAE PON[place] 1538) [id number] POCT-GLUCOSE [id number] 17:36:00 Test Item Value Reference Range Interpretation Comments POC-GLUCOSE METER 114 mg/dL 70-[address] [facility] [address] (BEAKER) (test code = JANAE Lopez [place] 1538) [id number] POCT-GLUCOSE [id number] 12:34:00 Test Item Value Reference Range Interpretation Comments POC-GLUCOSE METER 103 mg/dL 70-[address] [facility] [address] (BEAKER) (test code = JANAE Lopez [place] 1538) [address] POCT-GLUCOSE [id number] 08:07:00 Test Item Value Reference Range Interpretation Comments POC-GLUCOSE METER 143 mg/dL 70-[address] [facility] [address] (BEAKER) (test code = JANAE Lopez [facility] 1538) [address] [id number] 06:42:00 Test Item Value Reference Range Interpretation Comments MAGNESIUM (BEAKER) (test code = 1.6 mg/dL 1.6-2.6 627) BASIC METABOLIC [id number] 06:42:00 Test Item Value Reference Range Interpretation Comments SODIUM (BEAKER) 140 meq/L 136-145 (test code = 381) POTASSIUM (BEAKER) 3.4 meq/L 3.5-5.1 L (test code = 379) CHLORIDE (BEAKER) 105 meq/L 98-107 (test code = 382) CO2 (BEAKER) (test 27 meq/L 22-29 code = 355) BLOOD UREA NITROGEN 13 mg/dL 7-21 (BEAKER) (test code = 354) CREATININE (BEAKER) 0.73 mg/dL 0.57-1.25 (test code = 358) GLUCOSE RANDOM 128 mg/dL 70-105 H (BEAKER) (test code = 652) CALCIUM (BEAKER) 8.9 mg/dL 8.4-10.2 (test code = 697) EGFR (BEAKER) (test 106 mL/min/1.73 ESTIM ATED GFR IS code = 1092) sq m NOT ACCURATE CREATININE CLEARANCE IN PREDICTING GLOMERULAR FILTRATION RATE . ESTIMATED GFR I S NOT APPLICABLE FOR DIALYSIS PATIEN TS. CBC W/PLT COUNT & AUTO [id number] 05:58:00 Test Item Value Reference Range Interpretation Comments WHITE BLOOD CELL COUNT (BEAKER) 7.4 K/ L 3.5-10.5 (test code = 775) RED BLOOD CELL COUNT (BEAKER) 3.20 M/ L 4.63-6.08 L (test code = 761) HEMOGLOBIN (BEAKER) (test code = 10.7 GM/DL 13.7-17.5 L 410) HEMATOCRIT (BEAKER) (test code = 31.8 % 40.1-51.0 L 411) MEAN CORPUSCULAR VOLUME (BEAKER) 99.4 fL 79.0-92.2 H (test code = 753) MEAN CORPUSCULAR HEMOGLOBIN 33.4 pg 25.7-32.2 H (BEAKER) (test code = 751) MEAN CORPUSCULAR HEMOGLOBIN CONC 33.6 GM/DL 32.3-36.5 (BEAKER) (test code = 752) RED CELL DISTRIBUTION WIDTH 12.5 % 11.6-14.4 (BEAKER) (test code = 412) PLATELET COUNT (BEAKER) (test 168 K/CU MM 150-450 code = 756) MEAN PLATELET VOLUME (BEAKER) 10.9 fL 9.4-12.4 (test code = 754) NUCLEATED RED BLOOD CELLS 0 /100 WBC 0-0 (BEAKER) (test code = 413) NEUTROPHILS RELATIVE PERCENT 70 % (BEAKER) (test code = 429) LYMPHOCYTES RELATIVE PERCENT 13 % (BEAKER) (test code = 430) MONOCYTES RELATIVE PERCENT 13 % (BEAKER) (test code = 431) EOSINOPHILS RELATIVE PERCENT 3 % (BEAKER) (test code = 432) BASOPHILS RELATIVE PERCENT 0 % (BEAKER) (test code = 437) NEUTROPHILS ABSOLUTE COUNT 5.17 K/ L 1.78-5.38 (BEAKER) (test code = 670) LYMPHOCYTES ABSOLUTE COUNT 0.98 K/ L 1.32-3.57 L (BEAKER) (test code = 414) MONOCYTES ABSOLUTE COUNT (BEAKER) 0.95 K/ L 0.30-0.82 H (test code = 415) EOSINOPHILS ABSOLUTE COUNT 0.21 K/ L 0.04-0.54 (BEAKER) (test code = 416) BASOPHILS ABSOLUTE COUNT (BEAKER) 0.03 K/ L 0.01-0.08 (test code = 417) IMMATURE GRANULOCYTES-RELATIVE 1 % 0-1 PERCENT (BEAKER) (test code = 2801) POCT-GLUCOSE [id number] 21:36:00 Test Item Value Reference Range Interpretation Comments POC-GLUCOSE METER 144 mg/dL 70-[address] [facility] [address] (BEAKER) (test code = JANAE Lopez [place] 1538) [id number] POCT-GLUCOSE [id number] 17:27:00 Test Item Value Reference Range Interpretation Comments POC-GLUCOSE METER 115 mg/dL 70-[address] [facility] [address] (BEAKER) (test code = JANAE Lopez [place] 1538) [id number] POCT-GLUCOSE [id number] 12:14:00 Test Item Value Reference Range Interpretation Comments POC-GLUCOSE METER 116 mg/dL 70-[address] [facility] [address] [facility] (test code = JANAE Lopez [facility] 1538) [address] RAD, CHEST, 1 VIEW, NON [id number] 11:41:00Reason for exam:->PTXShould this be performed at the bedside?->YesFINAL REPORT History: Pneumothorax Comparison: 01/12/2019 Findings: The lungsare clear. No definite pneumothorax. Question minimal left pleural effusion. No right pleural effusion. The heart shadow is normal in size . Sternotomy wires are present. Degenerative changes are present in the spine and shoulders. Signed: Darlene Marinoeport Verified Date/Time: 01/13/2019 11:41:52Reading Location: [address] Reading Room POCT-GLUCOSE [id number] 07:44:00 Test Item Value Reference Range Interpretation Comments POC-GLUCOSE METER 139 mg/dL 70-[address] [facility] [address] (BEAKER) (test code = JANAE Lopez [facility] 1538) [id number] 07:29:00 Test Item Value Reference Range Interpretation Comments MAGNESIUM (BEAKER) (test code = 1.7 mg/dL 1.6-2.6 627) BASIC METABOLIC [id number] 07:29:00 Test Item Value Reference Range Interpretation Comments SODIUM (BEAKER) 140 meq/L 136-145 (test code = 381) POTASSIUM (BEAKER) 3.6 meq/L 3.5-5.1 (test code = 379) CHLORIDE (BEAKER) 107 meq/L 98-107 (test code = 382) CO2 (BEAKER) (test 26 meq/L 22-29 code = 355) BLOOD UREA NITROGEN 13 mg/dL 7-21 (BEAKER) (test code = 354) CREATININE (BEAKER) 0.77 mg/dL 0.57-1.25 (test code = 358) GLUCOSE RANDOM 128 mg/dL 70-105 H (BEAKER) (test code = 652) CALCIUM (BEAKER) 8.6 mg/dL 8.4-10.2 (test code = 697) EGFR (BEAKER) (test 99 mL/min/1.73 ESTIMA GUSTAVO GFR IS code = 1092) sq m NOT ACCURATE CREATININE CLEARANCE IN PREDICTING GLOMERULAR FILTRATION RATE . ESTIMATED GFR I S NOT APPLICABLE FOR DIALYSIS PATIEN TS. CBC W/PLT COUNT & AUTO [id number] 05:50:00 Test Item Value Reference Range Interpretation Comments WHITE BLOOD CELL COUNT (BEAKER) 8.4 K/ L 3.5-10.5 (test code = 775) RED BLOOD CELL COUNT (BEAKER) 3.21 M/ L 4.63-6.08 L (test code = 761) HEMOGLOBIN (BEAKER) (test code = 10.8 GM/DL 13.7-17.5 L 410) HEMATOCRIT (BEAKER) (test code = 31.5 % 40.1-51.0 L 411) MEAN CORPUSCULAR VOLUME (BEAKER) 98.1 fL 79.0-92.2 H (test code = 753) MEAN CORPUSCULAR HEMOGLOBIN 33.6 pg 25.7-32.2 H (BEAKER) (test code = 751) MEAN CORPUSCULAR HEMOGLOBIN CONC 34.3 GM/DL 32.3-36.5 (BEAKER) (test code = 752) RED CELL DISTRIBUTION WIDTH 12.6 % 11.6-14.4 (BEAKER) (test code = 412) PLATELET COUNT (BEAKER) (test 137 K/CU MM 150-450 L code = 756) MEAN PLATELET VOLUME (BEAKER) 10.9 fL 9.4-12.4 (test code = 754) NUCLEATED RED BLOOD CELLS 0 /100 WBC 0-0 (BEAKER) (test code = 413) NEUTROPHILS RELATIVE PERCENT 70 % (BEAKER) (test code = 429) LYMPHOCYTES RELATIVE PERCENT 14 % (BEAKER) (test code = 430) MONOCYTES RELATIVE PERCENT 14 % (BEAKER) (test code = 431) EOSINOPHILS RELATIVE PERCENT 2 % (BEAKER) (test code = 432) BASOPHILS RELATIVE PERCENT 0 % (BEAKER) (test code = 437) NEUTROPHILS ABSOLUTE COUNT 5.92 K/ L 1.78-5.38 H (BEAKER) (test code = 670) LYMPHOCYTES ABSOLUTE COUNT 1.14 K/ L 1.32-3.57 L (BEAKER) (test code = 414) MONOCYTES ABSOLUTE COUNT (BEAKER) 1.18 K/ L 0.30-0.82 H (test code = 415) EOSINOPHILS ABSOLUTE COUNT 0.15 K/ L 0.04-0.54 (BEAKER) (test code = 416) BASOPHILS ABSOLUTE COUNT (BEAKER) 0.02 K/ L 0.01-0.08 (test code = 417) IMMATURE GRANULOCYTES-RELATIVE 0 % 0-1 PERCENT (BEAKER) (test code = 2801) POCT-GLUCOSE [id number] 21:08:00 Test Item Value Reference Range Interpretation Comments POC-GLUCOSE METER 171 mg/dL 70-110 H TESTED AT [place] [address] ([facility]) (test code = [facility] [employer] [facility] 1538) [id number] POCT-GLUCOSE [id number] 16:46:00 Test Item Value Reference Range Interpretation Comments POC-GLUCOSE METER 141 mg/dL 70-110 H TESTED AT [place] [address] ([facility]) (test code = [facility] [employer] [facility] 1538) [address] POCT-GLUCOSE [id number] 12:27:00 Test Item Value Reference Range Interpretation Comments POC-GLUCOSE METER 188 mg/dL 70-110 H TESTED AT [place] [address] ([facility]) (test code = [facility] [employer] [facility] 1538) [address] HEMOGLOBIN [id number] 08:20:00 Test Item Value Reference Range Interpretation Comments HEMOGLOBIN A1C ([facility]) (test code = 6.4 % 4.3-6.1 H 368) POCT-GLUCOSE [id number] 07:57:00 Test Item Value Reference Range Interpretation Comments POC-GLUCOSE METER 141 mg/dL 70-110 H TESTED AT [place] [address] ([facility]) (test code = [facility] [employer] [facility] 1538) [id number] RAD, CHEST, 1 VIEW, NON [id number] 04:42:00Reason for exam:->Post-op CABG/respiratory insufficiencyShould this be performed at the bedside?->Yes FINAL REPORT EXAMINATION: AP PORTABLE CHEST RADIOGRAPH CLINICAL INDICATION: Respiratory insufficiency. IMPRESSION: Compared to 01/11/2019 A midline sternotomy is again noted. The heart is enlarged but stable. Mediastinal contours are also relatively unchanged. Left-sided chest tubes have been removed in the interval. Overall aeration of the lungs has improved. No definite evidence of new lung consolidation. A subtle crescentic radiolucency is noted at the left lung apex. Artifact versus a small pneumothorax. Short-term imaging surveillance recommended. Results including the possible small left apical pneumothorax discussed with the nurse caring for the patient at time of dictation. The nurse will notify the appropriate on-call clinician. Signed: Hernandez Horner MDReport Verified Date/Time: 01/12/2019 04:42:54 Reading Location: [address] Reading Room BASIC METABOLIC [id number] 04:38:00 Test Item Value Reference Range Interpretation Comments SODIUM (BEAKER) 138 meq/L 136-145 (test code = 381) POTASSIUM (BEAKER) 4.0 meq/L 3.5-5.1 (test code = 379) CHLORIDE (BEAKER) 105 meq/L 98-107 (test code = 382) CO2 (BEAKER) (test 26 meq/L 22-29 code = 355) BLOOD UREA NITROGEN 16 mg/dL 7-21 (BEAKER) (test code = 354) CREATININE (BEAKER) 0.86 mg/dL 0.57-1.25 (test code = 358) GLUCOSE RANDOM 146 mg/dL 70-105 H (BEAKER) (test code = 652) CALCIUM (BEAKER) 8.5 mg/dL 8.4-10.2 (test code = 697) EGFR (BEAKER) (test 87 mL/min/1.73 ESTIMA GUSTAVO GFR IS code = 1092) sq m NOT ACCURATE CREATININE CLEARANCE IN PREDICTING GLOMERULAR FILTRATION RATE . ESTIMATED GFR I S NOT APPLICABLE FOR DIALYSIS PATIEN TS. CBC W/PLT COUNT & AUTO [id number] 04:36:00 Test Item Value Reference Range Interpretation Comments WHITE BLOOD CELL COUNT (BEAKER) 11.6 K/ L 3.5-10.5 H (test code = 775) RED BLOOD CELL COUNT (BEAKER) 3.27 M/ L 4.63-6.08 L (test code = 761) HEMOGLOBIN (BEAKER) (test code = 10.9 GM/DL 13.7-17.5 L 410) HEMATOCRIT (BEAKER) (test code = 32.5 % 40.1-51.0 L 411) MEAN CORPUSCULAR VOLUME (BEAKER) 99.4 fL 79.0-92.2 H (test code = 753) MEAN CORPUSCULAR HEMOGLOBIN 33.3 pg 25.7-32.2 H (BEAKER) (test code = 751) MEAN CORPUSCULAR HEMOGLOBIN CONC 33.5 GM/DL 32.3-36.5 (BEAKER) (test code = 752) RED CELL DISTRIBUTION WIDTH 12.6 % 11.6-14.4 (BEAKER) (test code = 412) PLATELET COUNT (BEAKER) (test 126 K/CU MM 150-450 L code = 756) MEAN PLATELET VOLUME (BEAKER) 10.5 fL 9.4-12.4 (test code = 754) NUCLEATED RED BLOOD CELLS 0 /100 WBC 0-0 (BEAKER) (test code = 413) NEUTROPHILS RELATIVE PERCENT 79 % (BEAKER) (test code = 429) LYMPHOCYTES RELATIVE PERCENT 9 % (BEAKER) (test code = 430) MONOCYTES RELATIVE PERCENT 11 % (BEAKER) (test code = 431) EOSINOPHILS RELATIVE PERCENT 1 % (BEAKER) (test code = 432) BASOPHILS RELATIVE PERCENT 0 % (BEAKER) (test code = 437) NEUTROPHILS ABSOLUTE COUNT 9.10 K/ L 1.78-5.38 H (BEAKER) (test code = 670) LYMPHOCYTES ABSOLUTE COUNT 1.06 K/ L 1.32-3.57 L (BEAKER) (test code = 414) MONOCYTES ABSOLUTE COUNT (BEAKER) 1.30 K/ L 0.30-0.82 H (test code = 415) EOSINOPHILS ABSOLUTE COUNT 0.06 K/ L 0.04-0.54 (BEAKER) (test code = 416) BASOPHILS ABSOLUTE COUNT (BEAKER) 0.03 K/ L 0.01-0.08 (test code = 417) IMMATURE GRANULOCYTES-RELATIVE 0 % 0-1 PERCENT ([facility]) (test code = 2801) RAD, CHEST, 1 VIEW, NON [id number] 07:35:00Reason for exam:->Post-op CABG/respiratory insufficiencyShould this be performed at the bedside?->Yes FINAL REPORT Chest, 1 view, 01/11/2019 5:04 AM. History: Postop. Comparison: 01/10/2019. Discussion: ET and NG tubes are no longer present. Right IJ central catheter, left-sided chest tube, and mediastinal wires are unchanged in appearance. The cardiomediastinal silhouette and pulmonary vasculature are within normal limits for a portable exam. Increased linear opacities are present in the lung bases. There is no evidence of pneumothorax. The soft tissues and osseous structures are intact. IMPRESSION: Increased bibasilar atelectasis status post extubation. Signed: Bashir Ojedaort Verified Date/Time: 01/11/2019 07:35:32 Reading Location: [facility] Radiology Reading Room [id number] 06:20:00 Test Item Value Reference Range Interpretation Comments ACTIVATED CLOTTING TIME 109 sec TEST ED AT [place] [address] ([facility]) (test code = JANAE Lopez [place] [address]) [id number] 06:20:00 Test Item Value Reference Range Interpretation Comments ACTIVATED CLOTTING TIME 433 sec TEST ED AT [place] [address] ([facility]) (test code = JANAE Lopez [place] [address]) [id number] 06:20:00 Test Item Value Reference Range Interpretation Comments ACTIVATED CLOTTING TIME 389 sec TEST ED AT [place] [address] ([facility]) (test code = JANAE Lopez [place] [address]) [id number] 06:20:00 Test Item Value Reference Range Interpretation Comments ACTIVATED CLOTTING TIME 444 sec TEST ED AT [place] [address] ([facility]) (test code = JANAE Lopez [place] [address]) [id number] 03:54:00 Test Item Value Reference Range Interpretation Comments MAGNESIUM (BEAKER) 2.2 mg/dL 1.6-2.6 Specimen slightly (test code = 627) hemolyzed [id number] 03:54:00 Test Item Value Reference Range Interpretation Comments PHOSPHORUS (BEAKER) 3.4 mg/dL 2.3-4.7 Specimen slightly (test code = 604) hemolyzed BASIC METABOLIC [id number] 03:54:00 Test Item Value Reference Range Interpretation Comments SODIUM (BEAKER) 139 meq/L 136-145 (test code = 381) POTASSIUM (BEAKER) 4.5 meq/L 3.5-5.1 Specimen slightly (test code = 379) hemolyzed CHLORIDE (BEAKER) 111 meq/L 98-107 H (test code = 382) CO2 (BEAKER) (test 19 meq/L 22-29 L code = 355) BLOOD UREA NITROGEN 18 mg/dL 7-21 (BEAKER) (test code = 354) CREATININE (BEAKER) 0.85 mg/dL 0.57-1.25 Specimen slightly (test code = 358) hemolyzed GLUCOSE RANDOM 165 mg/dL 70-105 H (BEAKER) (test code = 652) CALCIUM (BEAKER) 8.2 mg/dL 8.4-10.2 L (test code = 697) EGFR (BEAKER) (test 89 mL/min/1.73 ESTIMA GUSATVO GFR IS code = 1092) sq m NOT ACCURATE CREATININE CLEARANCE IN PREDICTING GLOMERULAR FILTRATION RATE . ESTIMATED GFR I S NOT APPLICABLE FOR DIALYSIS PATIEN TS. CBC W/PLT COUNT & AUTO [id number] 03:37:00 Test Item Value Reference Range Interpretation Comments WHITE BLOOD CELL COUNT (BEAKER) 12.5 K/ L 3.5-10.5 H (test code = 775) RED BLOOD CELL COUNT (BEAKER) 3.33 M/ L 4.63-6.08 L (test code = 761) HEMOGLOBIN (BEAKER) (test code = 11.1 GM/DL 13.7-17.5 L 410) HEMATOCRIT (BEAKER) (test code = 33.2 % 40.1-51.0 L 411) MEAN CORPUSCULAR VOLUME (BEAKER) 99.7 fL 79.0-92.2 H (test code = 753) MEAN CORPUSCULAR HEMOGLOBIN 33.3 pg 25.7-32.2 H (BEAKER) (test code = 751) MEAN CORPUSCULAR HEMOGLOBIN CONC 33.4 GM/DL 32.3-36.5 (BEAKER) (test code = 752) RED CELL DISTRIBUTION WIDTH 12.4 % 11.6-14.4 (BEAKER) (test code = 412) PLATELET COUNT (BEAKER) (test 132 K/CU MM 150-450 L code = 756) MEAN PLATELET VOLUME (BEAKER) 10.6 fL 9.4-12.4 (test code = 754) NUCLEATED RED BLOOD CELLS 0 /100 WBC 0-0 (BEAKER) (test code = 413) NEUTROPHILS RELATIVE PERCENT 87 % (BEAKER) (test code = 429) LYMPHOCYTES RELATIVE PERCENT 5 % (BEAKER) (test code = 430) MONOCYTES RELATIVE PERCENT 8 % (BEAKER) (test code = 431) EOSINOPHILS RELATIVE PERCENT 0 % (BEAKER) (test code = 432) BASOPHILS RELATIVE PERCENT 0 % (BEAKER) (test code = 437) NEUTROPHILS ABSOLUTE COUNT 10.80 K/ L 1.78-5.38 H (BEAKER) (test code = 670) LYMPHOCYTES ABSOLUTE COUNT 0.68 K/ L 1.32-3.57 L (BEAKER) (test code = 414) MONOCYTES ABSOLUTE COUNT (BEAKER) 0.94 K/ L 0.30-0.82 H (test code = 415) EOSINOPHILS ABSOLUTE COUNT 0.00 K/ L 0.04-0.54 L (BEAKER) (test code = 416) BASOPHILS ABSOLUTE COUNT (BEAKER) 0.02 K/ L 0.01-0.08 (test code = 417) IMMATURE GRANULOCYTES-RELATIVE 0 % 0-1 PERCENT (BEAKER) (test code = 2801) BLOOD GAS, [id number] 03:26:00 Test Item Value Reference Range Interpretation Comments PH ARTERIAL (BEAKER) (test code = 7.39 7.35-7.45 383) PCO2 ARTERIAL (BEAKER) (test code 39 mmHg 35-45 = 384) PO2 ARTERIAL (BEAKER) (test code 79 mmHg 80-90 L = 385) O2 SATURATION ARTERIAL (BEAKER) 96.0 % 96.0-97.0 (test code = 386) HCO3 ARTERIAL (BEAKER) (test code 23 mmol/L 21-29 = 388) BASE EXCESS ARTERIAL (BEAKER) -1.6 mmol/L -2.0-3.0 (test code = 387) PATIENT TEMPERATURE (BEAKER) 36.3 C (test code = 1818) FIO2 (BEAKER) (test code = 1819) 100.0 % CALCIUM, [id number] 03:26:00 Test Item Value Reference Range Interpretation Comments CALCIUM IONIZED (BEAKER) (test 1.15 mmol/L 1.12-1.27 code = 698) PH, BLOOD (BEAKER) (test code = 7.38 1810) [id number] 23:54:00 Test Item Value Reference Range Interpretation Comments MAGNESIUM (BEAKER) (test code = 1.9 mg/dL 1.6-2.6 627) CALCIUM, [id number] 23:28:00 Test Item Value Reference Range Interpretation Comments CALCIUM IONIZED (BEAKER) (test 1.11 mmol/L 1.12-1.27 L code = 698) PH, BLOOD (BEAKER) (test code = 7.36 1810) SODIUM NA-STAT [id number] 23:27:00 Test Item Value Reference Range Interpretation Comments SODIUM (BEAKER) (test code = 381) 139 meq/L 135-148 POTASSIUM-STAT [id number] 23:27:00 Test Item Value Reference Range Interpretation Comments POTASSIUM (BEAKER) (test code = 4.0 meq/L 3.6-5.5 379) BLOOD GAS, [id number] 23:27:00 Test Item Value Reference Range Interpretation Comments PH ARTERIAL (BEAKER) (test code = 7.37 7.35-7.45 383) PCO2 ARTERIAL (BEAKER) (test code 41 mmHg 35-45 = 384) PO2 ARTERIAL (BEAKER) (test code 100 mmHg 80-90 H = 385) O2 SATURATION ARTERIAL (BEAKER) 97.5 % 96.0-97.0 H (test code = 386) HCO3 ARTERIAL (BEAKER) (test code 23 mmol/L = 388) BASE EXCESS ARTERIAL (BEAKER) -2.3 mmol/L -2.0-3.0 L (test code = 387) PATIENT TEMPERATURE (BEAKER) 36.6 C (test code = 1818) FIO2 (BEAKER) (test code = 1819) 36.0 % GLUCOSE-STAT [id number] 23:27:00 Test Item Value Reference Range Interpretation Comments GLUCOSE RANDOM (BEAKER) (test code 164 mg/dL 70-110 H = 652) HGB/HCT (H&H) - STAT [id number] 23:27:00 Test Item Value Reference Range Interpretation Comments HEMOGLOBIN (BEAKER) (test code = 12.2 g/dL 13.0-16.8 L 410) HEMATOCRIT (BEAKER) (test code = 36.0 % 40.0-50.0 L 411) BLOOD GAS, [id number] 21:05:00 Test Item Value Reference Range Interpretation Comments PH ARTERIAL (BEAKER) (test code = 7.50 7.35-7.45 H 383) PCO2 ARTERIAL (BEAKER) (test code 26 mmHg 35-45 L = 384) PO2 ARTERIAL (BEAKER) (test code 114 mmHg 80-90 H = 385) O2 SATURATION ARTERIAL (BEAKER) 98.6 % 96.0-97.0 H (test code = 386) HCO3 ARTERIAL (BEAKER) (test code 20 mmol/L 21-29 L = 388) BASE EXCESS ARTERIAL (BEAKER) -1.9 mmol/L -2.0-3.0 (test code = 387) PATIENT TEMPERATURE (BEAKER) 36.8 C (test code = 1818) FIO2 (BEAKER) (test code = 1819) 40.0 % BLOOD GAS, [id number] 20:30:00 Test Item Value Reference Range Interpretation Comments PH ARTERIAL (BEAKER) (test code = 7.45 7.35-7.45 383) PCO2 ARTERIAL (BEAKER) (test code 32 mmHg 35-45 L = 384) PO2 ARTERIAL (BEAKER) (test code 142 mmHg 80-90 H = 385) O2 SATURATION ARTERIAL (BEAKER) 99.0 % 96.0-97.0 H (test code = 386) HCO3 ARTERIAL (BEAKER) (test code 22 mmol/L 21-29 = 388) BASE EXCESS ARTERIAL (BEAKER) -2.0 mmol/L -2.0-3.0 (test code = 387) PATIENT TEMPERATURE (BEAKER) 36.1 C (test code = 1818) FIO2 (BEAKER) (test code = 1819) 40.0 % BLOOD GAS, [id number] 19:20:00 Test Item Value Reference Range Interpretation Comments PH ARTERIAL (BEAKER) (test code = 7.39 7.35-7.45 383) PCO2 ARTERIAL (BEAKER) (test code 42 mmHg 35-45 = 384) PO2 ARTERIAL (BEAKER) (test code = 78 mmHg 80-90 L 385) O2 SATURATION ARTERIAL (BEAKER) 95.6 % 96.0-97.0 L (test code = 386) HCO3 ARTERIAL (BEAKER) (test code 25 mmol/L 21-29 = 388) BASE EXCESS ARTERIAL (BEAKER) 0.1 mmol/L -2.0-3.0 (test code = 387) PATIENT TEMPERATURE (BEAKER) (test 36.7 C code = 1818) FIO2 (BEAKER) (test code = 1819) 60.0 % SODIUM NA-STAT [id number] 19:18:00 Test Item Value Reference Range Interpretation Comments SODIUM (BEAKER) (test code = 381) 143 meq/L 135-148 BLOOD GAS, [id number] 16:51:00 Test Item Value Reference Range Interpretation Comments PH ARTERIAL (BEAKER) (test code = 7.46 7.35-7.45 H 383) PCO2 ARTERIAL (BEAKER) (test code 30 mmHg 35-45 L = 384) PO2 ARTERIAL (BEAKER) (test code 139 mmHg 80-90 H = 385) O2 SATURATION ARTERIAL (BEAKER) 99.0 % 96.0-97.0 H (test code = 386) HCO3 ARTERIAL (BEAKER) (test code 22 mmol/L 21-29 = 388) BASE EXCESS ARTERIAL (BEAKER) -1.6 mmol/L -2.0-3.0 (test code = 387) PATIENT TEMPERATURE (BEAKER) 35.9 C (test code = 1818) FIO2 (BEAKER) (test code = 1819) 40.0 % GLUCOSE-STAT [id number] 16:51:00 Test Item Value Reference Range Interpretation Comments GLUCOSE RANDOM (BEAKER) (test code 121 mg/dL 70-110 H = 652) HGB/HCT (H&H) - STAT [id number] 16:51:00 Test Item Value Reference Range Interpretation Comments HEMOGLOBIN (BEAKER) (test code = 13.3 g/dL 13.0-16.8 410) HEMATOCRIT (BEAKER) (test code = 39.0 % 40.0-50.0 L 411) SODIUM NA-STAT [id number] 16:50:00 Test Item Value Reference Range Interpretation Comments SODIUM (BEAKER) (test code = 381) 140 meq/L 135-148 POTASSIUM-STAT [id number] 16:50:00 Test Item Value Reference Range Interpretation Comments POTASSIUM (BEAKER) (test code = 4.6 meq/L 3.6-5.5 379) RAD, CHEST, 1 VIEW, NON [id number] 15:56:00Reason for exam:->ETT/POST OPShould this be performed at the bedside?->YesFINAL REPORT AP chest dated 01/10/2019 COMPARISON: January 05, 2019 Comment: Sinceprior exam and should, there is sternotomy. Endotracheal tube, discuss tube, mediastinal tube, left chest tube, and right IJ central venous catheter are present. Heart is normal in size. Pulmonary vasculature is unremarkable. Subsegmental atelectasis is seen in the left lower lobe. The rest of the lungs are clear. No pleural effusion or pneumothorax is seen. Signed: Daljit Hernandezeport Verified Date/Time: 01/10/2019 15:56:43 Reading Location: [facility] [id number] Consult Reading Room [id number] 14:51:00 Test Item Value Reference Range Interpretation Comments MAGNESIUM (BEAKER) 1.6 mg/dL 1.6-2.6 Specimen slightly (test code = 627) hemolyzed [id number] 14:51:00 Test Item Value Reference Range Interpretation Comments PHOSPHORUS (BEAKER) 3.2 mg/dL 2.3-4.7 Specimen slightly (test code = 604) hemolyzed BASIC METABOLIC [id number] 14:51:00 Test Item Value Reference Range Interpretation Comments SODIUM (BEAKER) 138 meq/L 136-145 (test code = 381) POTASSIUM (BEAKER) 5.5 meq/L 3.5-5.1 H Specimen slightly (test code = 379) hemolyzed CHLORIDE (BEAKER) 109 meq/L 98-107 H (test code = 382) CO2 (BEAKER) (test 24 meq/L 22-29 code = 355) BLOOD UREA NITROGEN 21 mg/dL 7-21 (BEAKER) (test code = 354) CREATININE (BEAKER) 0.94 mg/dL 0.57-1.25 Specimen slightly (test code = 358) hemolyzed GLUCOSE RANDOM 125 mg/dL 70-105 H (BEAKER) (test code = 652) CALCIUM (BEAKER) 8.7 mg/dL 8.4-10.2 (test code = 697) EGFR (BEAKER) (test 79 mL/min/1.73 ESTIMA GUSTAVO GFR IS code = 1092) sq m NOT ACCURATE CREATININE CLEARANCE IN PREDICTING GLOMERULAR FILTRATION RATE . ESTIMATED GFR I S NOT APPLICABLE FOR DIALYSIS PATIEN TS. LACTIC ACID, [id number] 14:31:00 Test Item Value Reference Range Interpretation Comments LACTATE BLOOD 1.8 mmol/L 0.5-2.2 Specimen sligh tly ARTERIAL (2) (BEAKER) hemoly zed (test code = 2874) PROTHROMBIN TIME/[id number] 14:30:00 Test Item Value Reference Range Interpretation Comments PROTIME (BEAKER) (test code = 15.3 seconds 11.9-14.2 H 759) INR (BEAKER) (test code = 370) 1.3 <=5.9 Effective 11/29/2018: PT Reference Range ChangeNew: 11.9-14.2 Previous: 11.7- 14.7RECOMMENDED COUMADIN/WARFARIN INR THERAPY RANGESSTANDARD DOSE: 2.0-3.0 Includes: PROPHYLAXIS for venous thrombosis, systemic embolization; TREATMENT for venous thrombosis and/or pulmonary embolus.HIGH RISK: Target INR is2.5-3.5 for patients wiht mechanical heart valves.[id number] 14:30:00 Test Item Value Reference Range Interpretation Comments FIBRINOGEN LEVEL (BEAKER) (test 248 mg/dl 225-434 code = 658) [id number] 14:30:00 Test Item Value Reference Range Interpretation Comments PARTIAL THROMBOPLASTIN TIME 30.0 seconds 22.5-36.0 (BEAKER) (test code = 760) CBC W/PLT COUNT & AUTO [id number] 14:19:00 Test Item Value Reference Range Interpretation Comments WHITE BLOOD CELL COUNT (BEAKER) 14.7 K/ L 3.5-10.5 H (test code = 775) RED BLOOD CELL COUNT (BEAKER) 3.76 M/ L 4.63-6.08 L (test code = 761) HEMOGLOBIN (BEAKER) (test code = 12.8 GM/DL 13.7-17.5 L 410) HEMATOCRIT (BEAKER) (test code = 36.7 % 40.1-51.0 L 411) MEAN CORPUSCULAR VOLUME (BEAKER) 97.6 fL 79.0-92.2 H (test code = 753) MEAN CORPUSCULAR HEMOGLOBIN 34.0 pg 25.7-32.2 H (BEAKER) (test code = 751) MEAN CORPUSCULAR HEMOGLOBIN CONC 34.9 GM/DL 32.3-36.5 (BEAKER) (test code = 752) RED CELL DISTRIBUTION WIDTH 12.4 % 11.6-14.4 (BEAKER) (test code = 412) PLATELET COUNT (BEAKER) (test 139 K/CU MM 150-450 L code = 756) MEAN PLATELET VOLUME (BEAKER) 10.7 fL 9.4-12.4 (test code = 754) NUCLEATED RED BLOOD CELLS 0 /100 WBC 0-0 (BEAKER) (test code = 413) NEUTROPHILS RELATIVE PERCENT 84 % (BEAKER) (test code = 429) LYMPHOCYTES RELATIVE PERCENT 8 % (BEAKER) (test code = 430) MONOCYTES RELATIVE PERCENT 6 % (BEAKER) (test code = 431) EOSINOPHILS RELATIVE PERCENT 2 % (BEAKER) (test code = 432) BASOPHILS RELATIVE PERCENT 0 % (BEAKER) (test code = 437) NEUTROPHILS ABSOLUTE COUNT 12.39 K/ L 1.78-5.38 H (BEAKER) (test code = 670) LYMPHOCYTES ABSOLUTE COUNT 1.18 K/ L 1.32-3.57 L (BEAKER) (test code = 414) MONOCYTES ABSOLUTE COUNT (BEAKER) 0.82 K/ L 0.30-0.82 (test code = 415) EOSINOPHILS ABSOLUTE COUNT 0.25 K/ L 0.04-0.54 (BEAKER) (test code = 416) BASOPHILS ABSOLUTE COUNT (BEAKER) 0.03 K/ L 0.01-0.08 (test code = 417) IMMATURE GRANULOCYTES-RELATIVE 1 % 0-1 PERCENT (BEAKER) (test code = 2801) PLATELET [id number] 14:18:00 Test Item Value Reference Range Interpretation Comments PLATELET COUNT (BEAKER) (test 139 K/CU MM 150-450 L code = 756) BLOOD GAS, [id number] 14:14:00 Test Item Value Reference Range Interpretation Comments PH ARTERIAL (BEAKER) (test code = 7.40 7.35-7.45 383) PCO2 ARTERIAL (BEAKER) (test code 36 mmHg 35-45 = 384) PO2 ARTERIAL (BEAKER) (test code 152 mmHg 80-90 H = 385) O2 SATURATION ARTERIAL (BEAKER) 99.0 % 96.0-97.0 H (test code = 386) HCO3 ARTERIAL (BEAKER) (test code 22 mmol/L 21-29 = 388) BASE EXCESS ARTERIAL (BEAKER) -2.8 mmol/L -2.0-3.0 L (test code = 387) PATIENT TEMPERATURE (BEAKER) 35.1 C (test code = 1818) FIO2 (BEAKER) (test code = 1819) 60.0 % OXYGEN SATURATION, [id number] 14:13:00 Test Item Value Reference Range Interpretation Comments O2 SATURATION (MEASURED) (BEAKER) 74.9 % (test code = 1455) CALCIUM, [id number] 14:13:00 Test Item Value Reference Range Interpretation Comments CALCIUM IONIZED (BEAKER) (test 1.15 mmol/L 1.12-1.27 code = 698) PH, BLOOD (BEAKER) (test code = 7.37 1810) BLOOD GAS, [id number] 12:45:00 Test Item Value Reference Range Interpretation Comments PH ARTERIAL (BEAKER) (test code = 7.37 7.35-7.45 383) PCO2 ARTERIAL (BEAKER) (test code 41 mmHg 35-45 = 384) PO2 ARTERIAL (BEAKER) (test code 292 mmHg 80-90 H = 385) O2 SATURATION ARTERIAL (BEAKER) 99.7 % 96.0-97.0 H (test code = 386) HCO3 ARTERIAL (BEAKER) (test code 24 mmol/L 21-29 = 388) BASE EXCESS ARTERIAL (BEAKER) -1.7 mmol/L -2.0-3.0 (test code = 387) PATIENT TEMPERATURE (BEAKER) 35.7 C (test code = 1818) FIO2 (BEAKER) (test code = 1819) 100.0 % POTASSIUM-STAT [id number] 12:45:00 Test Item Value Reference Range Interpretation Comments POTASSIUM (BEAKER) (test code = 5.6 meq/L 3.6-5.5 H 379) GLUCOSE-STAT [id number] 12:45:00 Test Item Value Reference Range Interpretation Comments GLUCOSE RANDOM (BEAKER) (test code 146 mg/dL 70-110 H = 652) HGB/HCT (H&H) - STAT [id number] 12:45:00 Test Item Value Reference Range Interpretation Comments HEMOGLOBIN (BEAKER) (test code = 11.8 g/dL 13.0-16.8 L 410) HEMATOCRIT (BEAKER) (test code = 35.0 % 40.0-50.0 L 411) CALCIUM, [id number] 12:44:00 Test Item Value Reference Range Interpretation Comments CALCIUM IONIZED (BEAKER) (test 1.12 mmol/L 1.12-1.27 code = 698) PH, BLOOD (BEAKER) (test code = 7.36 1810) SODIUM NA-STAT [id number] 12:44:00 Test Item Value Reference Range Interpretation Comments SODIUM (BEAKER) (test code = 381) 136 meq/L 135-148 BLOOD GAS, [id number] 12:10:00 Test Item Value Reference Range Interpretation Comments PH ARTERIAL (BEAKER) (test code = 7.33 7.35-7.45 L 383) PCO2 ARTERIAL (BEAKER) (test code 46 mmHg 35-45 H = 384) PO2 ARTERIAL (BEAKER) (test code 334 mmHg 80-90 H = 385) O2 SATURATION ARTERIAL (BEAKER) 99.7 % 96.0-97.0 H (test code = 386) HCO3 ARTERIAL (BEAKER) (test code 24 mmol/L 21-29 = 388) BASE EXCESS ARTERIAL (BEAKER) -2.5 mmol/L -2.0-3.0 L (test code = 387) PATIENT TEMPERATURE (BEAKER) 35.0 C (test code = 1818) FIO2 (BEAKER) (test code = 1819) 70.0 % SODIUM NA-STAT [id number] 12:10:00 Test Item Value Reference Range Interpretation Comments SODIUM (BEAKER) (test code = 381) 131 meq/L 135-148 L POTASSIUM-STAT [id number] 12:10:00 Test Item Value Reference Range Interpretation Comments POTASSIUM (BEAKER) (test code = 7.0 meq/L 3.6-5.5 HH 379) GLUCOSE-STAT [id number] 12:10:00 Test Item Value Reference Range Interpretation Comments GLUCOSE RANDOM (BEAKER) (test code 166 mg/dL 70-110 H = 652) HGB/HCT (H&H) - STAT [id number] 12:10:00 Test Item Value Reference Range Interpretation Comments HEMOGLOBIN (BEAKER) (test code = 11.4 g/dL 13.0-16.8 L 410) HEMATOCRIT (BEAKER) (test code = 34.0 % 40.0-50.0 L 411) POTASSIUM-STAT [id number] 11:49:00 Test Item Value Reference Range Interpretation Comments POTASSIUM (BEAKER) (test code = 5.9 meq/L 3.6-5.5 H 379) HGB/HCT (H&H) - STAT [id number] 11:49:00 Test Item Value Reference Range Interpretation Comments HEMOGLOBIN (BEAKER) (test code = 11.1 g/dL 13.0-16.8 L 410) HEMATOCRIT (BEAKER) (test code = 33.0 % 40.0-50.0 L 411) BLOOD GAS, [id number] 11:48:00 Test Item Value Reference Range Interpretation Comments PH ARTERIAL (BEAKER) (test code = 7.37 7.35-7.45 383) PCO2 ARTERIAL (BEAKER) (test code 40 mmHg 35-45 = 384) PO2 ARTERIAL (BEAKER) (test code 382 mmHg 80-90 H = 385) O2 SATURATION ARTERIAL (BEAKER) 99.8 % 96.0-97.0 H (test code = 386) HCO3 ARTERIAL (BEAKER) (test code 25 mmol/L 21-29 = 388) BASE EXCESS ARTERIAL (BEAKER) -2.9 mmol/L -2.0-3.0 L (test code = 387) PATIENT TEMPERATURE (BEAKER) 29.0 C (test code = 1818) FIO2 (BEAKER) (test code = 1819) 80.0 % GLUCOSE-STAT [id number] 11:48:00 Test Item Value Reference Range Interpretation Comments GLUCOSE RANDOM (BEAKER) (test code 173 mg/dL 70-110 H = 652) SODIUM NA-STAT [id number] 11:48:00 Test Item Value Reference Range Interpretation Comments SODIUM (BEAKER) (test code = 381) 134 meq/L 135-148 L CALCIUM, [id number] 10:40:00 Test Item Value Reference Range Interpretation Comments CALCIUM IONIZED (BEAKER) (test 1.19 mmol/L 1.12-1.27 code = 698) PH, BLOOD (BEAKER) (test code = 7.37 1810) SODIUM NA-STAT [id number] 10:40:00 Test Item Value Reference Range Interpretation Comments SODIUM (BEAKER) (test code = 381) 138 meq/L 135-148 POTASSIUM-STAT [id number] 10:40:00 Test Item Value Reference Range Interpretation Comments POTASSIUM (BEAKER) (test code = 4.6 meq/L 3.6-5.5 379) HGB/HCT (H&H) - STAT [id number] 10:40:00 Test Item Value Reference Range Interpretation Comments HEMOGLOBIN (BEAKER) (test code = 14.9 g/dL 13.0-16.8 410) HEMATOCRIT (BEAKER) (test code = 44.0 % 40.0-50.0 411) BLOOD GAS, [id number] 10:40:00 Test Item Value Reference Range Interpretation Comments PH ARTERIAL (BEAKER) (test code = 7.40 7.35-7.45 383) PCO2 ARTERIAL (BEAKER) (test code 40 mmHg 35-45 = 384) PO2 ARTERIAL (BEAKER) (test code 449 mmHg 80-90 H = 385) O2 SATURATION ARTERIAL (BEAKER) 99.8 % 96.0-97.0 H (test code = 386) HCO3 ARTERIAL (BEAKER) (test code 24 mmol/L 21-29 = 388) BASE EXCESS ARTERIAL (BEAKER) -1.1 mmol/L -2.0-3.0 (test code = 387) PATIENT TEMPERATURE (BEAKER) 35.5 C (test code = 1818) FIO2 (BEAKER) (test code = 1819) 100.0 % GLUCOSE-STAT [id number] 10:40:00 Test Item Value Reference Range Interpretation Comments GLUCOSE RANDOM (BEAKER) (test code 118 mg/dL 70-110 H = 652) LIPID [id number] 12:20:00 Test Item Value Reference Range Interpretation Comments TRIGLYCERIDES (BEAKER) (test code = 475 mg/dL 540) CHOLESTEROL (BEAKER) (test code = 283 mg/dL 631) HDL CHOLESTEROL (BEAKER) (test code 40 mg/dL = 976) Calculated LDL not valid if triglyceride >400 mg/dLTriglyceride Reference Range: Low Risk <150 Borderline 150-199 High Risk 200-499 Very High Risk >=500Cholesterol Reference Range: Low Risk <200 Borderline 200-239 High Risk >240HDL Cholesterol Reference Range: Low Risk >=60 High Risk <40LDL Cholesterol ReferenceRange: Optimal <100 Near Optimal 100-129 Borderline 130-159 High 160-189 Very High >=190PROTHROMBIN TIME/INR 2019-01-09 12:11:00 Test Item Value Reference Range Interpretation Comments PROTIME (ANNAMARIE) (test code = 13.0 seconds 11.9-14.2 759) INR (BEAKER) (test code = 370) 1.0 <=5.9 Effective 11/29/2018: PT Reference Range ChangeNew: 11.9-14.2 Previous: 11.7- 14.7RECOMMENDED COUMADIN/WARFARIN INR THERAPY RANGESSTANDARD DOSE: 2.0-3.0 Includes: PROPHYLAXIS for venous thrombosis, systemic embolization; TREATMENT for venous thrombosis and/or pulmonary embolus.HIGH RISK: Target INR is2.5-3.5 for patients wiht mechanical heart valves.[id number] 12:11:00 Test Item Value Reference Range Interpretation Comments PARTIAL THROMBOPLASTIN TIME 33.1 seconds 22.5-36.0 (BEAKER) (test code = 760) RAD, CHEST, 1 VIEW, NON [id number] 17:50:00Reason for exam:- >DIZZINESSShould this be performed at the bedside?->YesFINAL REPORT Chest, portable AP view History: Dizziness Comparison: None IMPRESSION: The cardiac silhouette is identified by portable technique. The mediastinal and hilar contours are unremarkable. Bibasilar atelectasis is present. No definite focal consolidation, sizable pleural effusion, or pneumothorax. No acute osseous abdomen bodies. Signed: Duane Marinelli MDRhospital for special care Verified Date/Time: 01/05/2019 17:50:58 Reading Location: [facility] [id number] Consult Reading Room TROPONIN [id number] 17:27:00 Test Item Value Reference Range Interpretation Comments TROPONIN I (BEAKER) (test code = 0.01 ng/mL 0.00-0.03 397) Troponin I (TnI) levels must be interpreted in the context of the presenting symptoms and the clinical findings. Elevated TnI levels indicate myocardial damage, but are not specific for ischemic heart disease. Elevated TnI levels are seen in patients with other cardiac conditions (including myocarditis and congestive heart failure), and slight TnI elevations occur in patients with other conditions, including sepsis, renal failure, acidosis, acute neurological disease, and persistent tachyarrhythmia.B-TYPE NATRIURETIC FACTOR (BNP) 2019-01-05 17:24:00 Test Item Value Reference Range Interpretation Comments B-TYPE NATRIURETIC PEPTIDE (BEAKER) 61 pg/mL 0-100 (test code = 700) BASIC METABOLIC [id number] 17:18:00 Test Item Value Reference Range Interpretation Comments SODIUM (BEAKER) 139 meq/L 136-145 (test code = 381) POTASSIUM (BEAKER) 4.2 meq/L 3.5-5.1 (test code = 379) CHLORIDE (BEAKER) 105 meq/L 98-107 (test code = 382) CO2 (BEAKER) (test 25 meq/L 22-29 code = 355) BLOOD UREA NITROGEN 21 mg/dL 7-21 (BEAKER) (test code = 354) CREATININE (BEAKER) 1.01 mg/dL 0.57-1.25 (test code = 358) GLUCOSE RANDOM 102 mg/dL 70-105 (BEAKER) (test code = 652) CALCIUM (BEAKER) 9.6 mg/dL 8.4-10.2 (test code = 697) EGFR (BEAKER) (test 73 mL/min/1.73 INSUFF ICIENT CLINICAL code = 1092) sq m DATA TO CALCULA TE ESTIMATED GFR. CBC W/PLT COUNT & AUTO [id number] 16:52:00 Test Item Value Reference Range Interpretation Comments WHITE BLOOD CELL COUNT (BEAKER) 5.7 K/ L 3.5-10.5 (test code = 775) RED BLOOD CELL COUNT (BEAKER) 4.43 M/ L 4.63-6.08 L (test code = 761) HEMOGLOBIN (BEAKER) (test code = 14.7 GM/DL 13.7-17.5 410) HEMATOCRIT (BEAKER) (test code = 42.8 % 40.1-51.0 411) MEAN CORPUSCULAR VOLUME (BEAKER) 96.6 fL 79.0-92.2 H (test code = 753) MEAN CORPUSCULAR HEMOGLOBIN 33.2 pg 25.7-32.2 H (BEAKER) (test code = 751) MEAN CORPUSCULAR HEMOGLOBIN CONC 34.3 GM/DL 32.3-36.5 (BEAKER) (test code = 752) RED CELL DISTRIBUTION WIDTH 12.2 % 11.6-14.4 (BEAKER) (test code = 412) PLATELET COUNT (BEAKER) (test 205 K/CU MM 150-450 code = 756) MEAN PLATELET VOLUME (BEAKER) 10.3 fL 9.4-12.4 (test code = 754) NUCLEATED RED BLOOD CELLS 0 /100 WBC 0-0 (BEAKER) (test code = 413) NEUTROPHILS RELATIVE PERCENT 60 % (BEAKER) (test code = 429) LYMPHOCYTES RELATIVE PERCENT 24 % (BEAKER) (test code = 430) MONOCYTES RELATIVE PERCENT 12 % (BEAKER) (test code = 431) EOSINOPHILS RELATIVE PERCENT 4 % (BEAKER) (test code = 432) BASOPHILS RELATIVE PERCENT 0 % (BEAKER) (test code = 437) NEUTROPHILS ABSOLUTE COUNT 3.42 K/ L 1.78-5.38 (BEAKER) (test code = 670) LYMPHOCYTES ABSOLUTE COUNT 1.35 K/ L 1.32-3.57 (BEAKER) (test code = 414) MONOCYTES ABSOLUTE COUNT (BEAKER) 0.70 K/ L 0.30-0.82 (test code = 415) EOSINOPHILS ABSOLUTE COUNT 0.21 K/ L 0.04-0.54 (BEAKER) (test code = 416) BASOPHILS ABSOLUTE COUNT (BEAKER) 0.02 K/ L 0.01-0.08 (test code = 417) IMMATURE GRANULOCYTES-RELATIVE 0 % 0-1 PERCENT (BEAKER) (test code = 2801)
[2020-02-03 16:12] LABS: Absolute Lymphocytes (CBC) 1.3 K/uL (0.7-4.9); Basophils % 0.4 % (0-1.3); Hematocrit 44.3 % (39.6-49.0); Lymphocytes % 16.4 % (15.3-44.8); MPV 8.9 fL (7.6-11.3)
--- NOTE | 2020-02-03 16:15 | RAD REPORT ---
EXAM DESCRIPTION: CT - Ct Stroke Brain Wo Cont - 02/03/2020 4:03 pm CLINICAL HISTORY: Syncope COMPARISON: 2019 TECHNIQUE: Computed axial tomography of the head was obtained. All CT scans are performed using dose optimization technique as appropriate and may include automated exposure control or mA/KV adjustment according to patient size. FINDINGS: An intracranial bleed is not seen . The ventricles are normal in caliber. No extra-axial fluid collection is noted. Mild t low-density within periventricular, deep and subcortical white matter likely ischemic changes secondary to small vessel disease Fluid within the sinuses/ mastoids is not seen. IMPRESSION: No acute intracranial abnormality is seen. If patient's symptoms persist MRI of the bra in would be recommended. Jonathan Page of the emergency room was notified at 4:11 p.m. February 03, 2020
[2020-02-03 16:16] LABS: Protime INR 0.97
[2020-02-03 16:28] LABS: BUN Blood Urea Nitrogen 34 mg/dL (7-18); Bicarbonate 26 mmol/L (21-32); Creatine Phosphokinase 565 U/L (39-308); Glucose Level 156 mg/dL (74-106); Potassium 4.3 mmol/L (3.5-5.1); Sodium Level 141 mmol/L (136-145); Troponin (Emerg Dept Use Only) < 0.02 ng/mL (0.0-0.045)
--- NOTE | 2020-02-03 16:49 | EDPHYS ---
Physician Documentation [facility] Name: Jhonatan Haro Sr Age: 74 yrs Sex: Male : 1945 Arrival Date: 02/03/2020 Time: 15:25 Bed 4 Private MD: ED Physician Ariela Jernigan HPI: 02/02 15:35 This 74 yrs old Male presents to ER via EMS with complaints of Altered Mental cp Status. 15:35 The patient's problem is reported as unsteady gait times 2 days and syncope. cp 15:35 Patient's baseline: Neuro: orientated to person, place, Motor: no deficits, Ambulation: cp walks without assistance, Speech: normal, The patient has a previous history of Dementia. reports noticing patient have unsteady gait over past 2 days and while eating lunch today was found unconscious briefly. Patient reports several falls recently. Historical: - Allergies: 15:38 No Known Allergies; ll1 - PMHx: 15:38 Diabetes - NIDDM; Dementia; Hypothyroidism; ll1 - PSHx: 15:38 Appendectomy; ll1 - Immunization history:: Flu vaccine status is unknown. - Social history:: Smoking status: Patient denies any tobacco usage or history of. ROS: 15:40 Constitutional: Negative for body aches, chills, fever, poor PO intake. cp 15:40 Eyes: Negative for injury, pain, redness, and discharge. cp 15:40 ENT: Negative for ear pain, sore throat, difficulty swallowing, difficulty handling secretions. 15:40 Cardiovascular: Negative for chest pain, edema, palpitations. 15:40 Respiratory: Negative for cough, shortness of breath, wheezing. 15:40 Abdomen/GI: Negative for abdominal pain, nausea, vomiting, and diarrhea. 15:40 Back: Negative for pain at rest, pain with movement. 15:40 : Negative for urinary symptoms. 15:40 Skin: Negative for rash. 15:40 Neuro: Positive for gait disturbance, headache, syncope, Negative for altered mental status, seizure activity, weakness. 15:40 All other systems are negative. Exam: 15:46 Constitutional: The patient appears in no acute distress, alert, awake, comfortable, cp non-diaphoretic, non-toxic, well developed, well nourished. 15:46 Head/Face: Normocephalic, atraumatic. cp 15:46 Eyes: Periorbital structures: appear normal, Pupils: equal, round, and reactive to light and accomodation, Extraocular movements: intact throughout, Conjunctiva: normal, no exudate, no injection, Sclera: no appreciated abnormality, Lids and lashes: appear normal, bilaterally. 15:46 ENT: External ear(s): are unremarkable, Nose: is normal, Mouth: Lips: moist, Oral mucosa: pink and intact, moist, Posterior pharynx: is normal, airway is patent, no erythema, no exudate. 15:46 Neck: ROM/movement: is normal, is supple, without pain, no range of motions limitations, no nuchal rigidity. 15:46 Chest/axilla: Inspection: normal, Palpation: is normal, no crepitus, no tenderness. 15:46 Cardiovascular: Rate: normal, Rhythm: regular, Pulses: Pulses are 2+ in right radial artery and left radial artery. Edema: is not appreciated, JVD: is not appreciated. 15:46 Respiratory: the patient does not display signs of respiratory distress, Respirations: normal, no use of accessory muscles, no retractions, labored breathing, is not present, Breath sounds: are clear throughout, no decreased breath sounds, no stridor, no wheezing. 15:46 Abdomen/GI: Inspection: abdomen appears normal, Palpation: abdomen is soft and non-tender, in all quadrants. 15:46 Back: pain, is absent, ROM is normal. 15:46 Skin: cellulitis, is not appreciated, no rash present. 15:46 Neuro: Orientation: to person, place, situation, Mentation: lucid, able to follow commands, Cerebellar function: Romberg testing is negative, normal finger to nose testing, heel to haney testing is normal, Motor: moves all fours, strength is normal, Sensation: is normal. 16:00 ECG was reviewed by the Attending Physician. cp 16:15 Radiologist reports: no acute findings cp Vital Signs: 15:35 BP 140 / 92; Pulse 99; Resp 18; Temp 98.1; Pulse Ox 97% on R/A; Pain 0/10; ll1 16:48 BP 106 / 77; Pulse 96; Resp 20; Pulse Ox 96% on R/A; Pain 0/10; jr10 17:55 BP 106 / 76; Pulse 93; Resp 18; Pulse Ox 97% on R/A; Pain 0/10; jr10 NIH Stroke Scale Scores: 15:44 NIHSS Score: 0 cp MDM: 15:36 Patient medically screened. cp 16:05 ED course: Patient is not a tpa candidate, after speaking with she reports cp noticing patient with unsteady gait for past 2 days. 16:05 Differential diagnosis: CVA, TIA, Dementia, metabolic disorder, drug effects, cardiac cp arrythmia. 16:42 Physician consultation: Santos May MD was called at 16:43, was contacted at 16:43, cp regarding consult, patient's condition. 16:50 Data reviewed: vital signs, nurses notes, lab test result(s), EKG, radiologic studies, cp CT scan, plain films, and as a result, I will admit patient. 16:50 Test interpretation: by ED physician or midlevel provider: ECG. Counseling: I had a cp detailed discussion with the patient and/or guardian regarding: the historical points, exam findings, and any diagnostic results supporting the discharge/admit diagnosis, lab results, radiology results, the need for further work-up and treatment in the hospital. Physician consultation: Yuriy COYNE was called at 16:45, was contacted at 16:45, regarding admission, to the telemetry unit. patient's condition. 08 15:37 Order name: CPK; Complete Time: 16:40 cp 02/02 16:40 Interpretation: Abnormal: CPK 565. cp 02/02 15:37 Order name: Troponin (emerg Dept Use Only); Complete Time: 16:40 cp 02/02 16:40 Interpretation: TROPED < 0.02; Reviewed. cp 02/02 15:37 Order name: Basic Metabolic Panel; Complete Time: 16:40 cp 02/02 16:40 Interpretation: Normal except: CL 108; GLUC 156; BUN 34; GFR 57. cp 02/02 15:37 Order name: CBC with Diff; Complete Time: 16:40 cp 02/02 16:40 Interpretation: Normal except: MCV 94.4. cp 02/02 15:37 Order name: Protime (+inr); Complete Time: 16:40 cp 02/02 15:37 Order name: Ptt, Activated; Complete Time: 16:40 cp 02/02 15:37 Order name: CT Stroke Brain w/o Contrast; Complete Time: 16:23 cp 02/02 15:37 Order name: Stroke CXR 1 View 02/02 15:37 Order name: EKG; Complete Time: 15:38 cp 02/02 15:37 Order name: Cardiac monitoring; Complete Time: 16:09 cp 02 15:38 Order name: Urine Microscopic Only 02/02 15:37 Order name: EKG - Nurse/Tech; Complete Time: 16:09 02/02 15:37 Order name: IV Saline Lock; Complete Time: 16:09 cp 02/02 15:37 Order name: Labs collected and sent; Complete Time: 16:09 02/02 15:37 Order name: NPO; Complete Time: 16:09 02/02 15:37 Order name: O2 Per Protocol; Complete Time: 16:09 cp 02/02 15:37 Order name: O2 Sat Monitoring; Complete Time: 16:09 02/02 15:37 Order name: Stroke Swallow Screen; Complete Time: 16:10 cp EC:00 Rate is 97 beats/min. Rhythm is regular. KS interval is normal. QRS interval is normal. cp QT interval is normal. Interpreted by me. Reviewed by me. Administered Medications: 16:46 Drug: Aspirin Chewable Tablet 324 mg Route: PO; 10 17:48 Follow up: Response: No adverse reaction [facility] 17:10 Drug: foLIC Acid 1 mg Route: IVPB; Site: right forearm; jr10 17:47 Follow up: Response: No adverse reaction; IV Status: Completed infusion 10 Disposition: 18:21 Co-signature as Attending Physician, Ariela Jernigan MD. nm2 Disposition: 02/03/20 16:48 Hospitalization ordered by Chato Yusuf for Observation. Preliminary diagnosis are Syncope and collapse, Unsteadiness on feet. - Bed requested for Telemetry/MedSurg (observation). - Status is Observation. jr10 - Condition is Stable. - Problem is new. - Symptoms have improved. NIH Stroke Scale - NIH Stroke Score Date: 02/03/2020 Time: 15:44 Total Score = 0 1a. Level of Consciousness (LOC) - 0(Alert) 1b. Level of Consciousness (LOC) (Year \T\ Age) - 0(Both) 1c. 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 Best Gaze (Lateral Gaze Paresis) - 0(Normal) 3. Visual Field Loss - 0(No visual loss) 4. Facial Palsy - 0(Normal) 5a. Left Arm: Motor (10-second hold) - 0(No drift) 5b. Right Arm: Motor (10-second hold) - 0(No drift) 6a. Left Leg: Motor (5-second hold - always test supine) - 0(No drift) 6b. Right Leg: Motor (5-second hold - always test supine) - 0(No drift) 7. Limb Ataxia (finger/nose \T\ heel/haney - test with eyes open) - 0(Absent) 8. Sensory Loss (pinprick arms/legs/face) - 0(Normal) 9. Best Language: Aphasia (description/naming/reading) - 0(No aphasia) 10. Dysarthria (speech clarity - read or repeat words) - 0(Normal) 11. Extinction and Inattention (visual/tactile/auditory/spatial/personal) - 0(No abnormality) Initials: cp Signatures: Dispatcher [employer] EDMS Marisol Cowart RN RN Gris Gomez RN RN ss Jonathan Ramso, [place] PA cp Ariela Jernigan MD MD ma2 Pau Acosta, RN RN ll1 Lakia Luna, RN RN jr10 Corrections: (The following items were deleted from the chart) 16:48 16:48 Hospitalization Ordered by Chato Yusuf MD for Observation. cp Preliminary diagnosis is Syncope and collapse. Bed requested for Telemetry/MedSurg (observation). Status is Observation. Condition is Stable. Problem is new. Symptoms have improved. cp 17:44 16:48 02/03/2020 16:48 Hospitalization Ordered by Chato Yusuf MD for ss Observation. Preliminary diagnosis is Syncope and collapse; Unsteadiness on feet. Bed requested for Telemetry/MedSurg (observation). Status is Observation. Condition is Stable. Problem is new. Symptoms have improved. cp 17:44 17:44 02/03/2020 16:48 Hospitalization Ordered by Chato Yusuf MD for dw Observation. Preliminary diagnosis is Syncope and collapse; Unsteadiness on feet. Bed requested for Telemetry/MedSurg (observation). Status is Observation. Condition is Stable. Problem is new. Symptoms have improved. 18:15 17:44 02/03/2020 16:48 Hospitalization Ordered by Chato Yusuf MD for jr10 Observation. Preliminary diagnosis is Syncope and collapse; Unsteadiness on feet. Bed requested for Telemetry/MedSurg (observation). Status is Observation. Condition is Stable. Problem is new. Symptoms have improved. dw
--- NOTE | 2020-02-03 16:49 | ER ---
Nurse's Notes [facility] Name: Jhonatan Haro Sr Age: 74 yrs Sex: Male : 1945 Arrival Date: 02/03/2020 Time: 15:25 Bed 4 Private MD: Diagnosis: Syncope and collapse;Unsteadiness on feet Presentation: 02/02 15:30 Initial Sepsis Screen: Does the patient have a suspected source of infection? No. jr10 Patient's initial sepsis screen is negative. Onset of symptoms was February 03, 2020. 15:35 Chief complaint: Patient states: Eating earlier and slumped over. EMS states he was ll1 alert upon their arrival. Stroke scale negative for EMS. EMS: HR 106, fingerstick 180, no fever or cough. Coronavirus screen: Client denies travel out of the [place] in the last 14 days. At this time, the client does not indicate any symptoms associated with coronavirus-19. Ebola Screen: Patient denies travel to an Ebola-affected area in the 21 days before illness onset. Initial Sepsis Screen: Does the patient meet any 2 criteria? HR > 90 bpm. Risk Assessment: Do you want to hurt yourself or someone else? Patient reports no desire to harm self or others. 15:35 Method Of Arrival: EMS: [facility] ll1 15:35 Acuity: ROBLES 2 ll1 Historical: - Allergies: 15:38 No Known Allergies; ll1 - PMHx: 15:38 Diabetes - NIDDM; Dementia; Hypothyroidism; ll1 - PSHx: 15:38 Appendectomy; ll1 - Immunization history:: Flu vaccine status is unknown. - Social history:: Smoking status: Patient denies any tobacco usage or history of. Screenin:00 Abuse screen: Denies threats or abuse. Denies injuries from another. Nutritional jr10 screening: No deficits noted. Tuberculosis screening: No symptoms or risk factors identified. Fall Risk Fall in past 12 months (25 points). No secondary diagnosis (0 pts). IV access (20 points). Ambulatory Aid- None/Bed Rest/Nurse Assist (0 pts). Gait- Normal/Bed Rest/Wheelchair (0 pts) Mental Status- Oriented to own ability (0 pts). Assessment: 16:00 General: Appears in no apparent distress. Behavior is calm, cooperative, appropriate jr10 for age. Pain: Denies pain. Neuro: No deficits noted. Level of Consciousness is awake, alert, obeys commands, Oriented to person, place, time, situation, Program Arranger are equal bilaterally Moves all extremities. 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 Appears in NAD at present. . Cardiovascular: No deficits noted. Denies chest pain, lightheadedness, shortness of breath, Pulses are all present. Edema is absent. Rhythm is regular. Respiratory: No deficits noted. Airway is patent Respiratory effort is even, unlabored, Respiratory pattern is regular, symmetrical, Breath sounds are clear bilaterally. GI: No deficits noted. Patient currently denies nausea, vomiting. : No deficits noted. Derm: No deficits noted. Musculoskeletal: No deficits noted. Reports guest experience captain pt reports that he had an unsteady gait but states " I feel fine now, like I'm ready to go home now.". Vital Signs: 15:35 BP 140 / 92; Pulse 99; Resp 18; Temp 98.1; Pulse Ox 97% on R/A; Pain 0/10; ll1 16:48 BP 106 / 77; Pulse 96; Resp 20; Pulse Ox 96% on R/A; Pain 0/10; jr10 17:55 BP 106 / 76; Pulse 93; Resp 18; Pulse Ox 97% on R/A; Pain 0/10; jr10 NIH Stroke Scale Scores: 15:44 NIHSS Score: 0 cp ED Course: 15:25 Patient arrived in ED. ss 15:25 Jonathan Ramos PA is PHCP. cp 15:25 Ariela Jernigan MD is Attending Physician. cp 15:30 Patient has correct armband on for positive identification. Bed in low position. Call jr10 light in reach. Side rails up X2. alarm security or surveillance monitor on. Pulse ox on. NIBP on. 15:37 Triage completed. ll1 15:37 Lakia Luna, RANDEE is Primary Nurse. jr10 15:38 Arm band placed on Patient placed in an exam room, on a stretcher. ll1 15:39 Maintain EMS IV. Dressing intact. Good blood return noted. Site clean \\T\\ dry. Gauge \\T\\ ll 1 site: 20 G R wrist. 16:00 No apparent distress. jr10 16:03 CT Stroke Brain w/o Contrast In Process Unspecified. EDMS 16:47 Chato Yusuf MD is Hospitalizing Provider. cp 17:06 Stroke CXR 1 View In Process Unspecified. EDMS 17:56 No provider procedures requiring assistance completed. Patient admitted, IV remains in jr10 place. intact, No redness/swelling at site. Pressure dressing applied. Administered Medications: 16:46 Drug: Aspirin Chewable Tablet 324 mg Route: PO; jr10 17:48 Follow up: Response: No adverse reaction jr10 17:10 Drug: foLIC Acid 1 mg Route: IVPB; Site: right forearm; jr10 17:47 Follow up: Response: No adverse reaction; IV Status: Completed infusion jr10 Outcome: 16:48 Decision to Hospitalize by Provider. cp 18:05 Admitted to Med/surg accompanied by tech, via wheelchair, room 232, with chart, Report jr10 called to RANDEE Garcia 18:05 Condition: good 18:05 Instructed on the need for admit, Demonstrated understanding of instructions. 18:15 Patient left the ED. jr10 NIH Stroke Scale - NIH Stroke Score Date: 02/03/2020 Time: 15:44 Total Score = 0 1a. Level of Consciousness (LOC) - 0(Alert) 1b. Level of Consciousness (LOC) (Year \\T\\ Age) - 0(Both) 1c. LOC Commands (Open \\T\\ Closes Eyes/Secure Software Assessor) - 0(Both) 2. Best Gaze (Lateral Gaze Paresis) - 0(Normal) 3. Visual Field Loss - 0(No visual loss) 4. Facial Palsy - 0(Normal) 5a. Left Arm: Motor (10-second hold) - 0(No drift) 5b. Right Arm: Motor (10-second hold) - 0(No drift) 6a. Left Leg: Motor (5-second hold - always test supine) - 0(No drift) 6b. Right Leg: Motor (5-second hold - always test supine) - 0(No drift) 7. Limb Ataxia (finger/nose \\T\\ heel/haney - test with eyes open) - 0(Absent) 8. Sensory Loss (pinprick arms/legs/face) - 0(Normal) 9. Best Language: Aphasia (description/naming/reading) - 0(No aphasia) 10. Dysarthria (speech clarity - read or repeat words) - 0(Normal) 11. Extinction and Inattention (visual/tactile/auditory/spatial/personal) - 0(No abnormality) Initials: cp Signatures: Dispatcher [employer] EDMS Gris Estrada RN RN Jonathan Velasquez PA PA cp Pau Acosta RN RN ll1 Lakia Luna RN RN jr10 Corrections: (The following items were deleted from the chart) 17:55 16:48 Pulse 96bpm; Resp 20bpm; Pulse Ox 96% RA; Pain 0/10; jr10 jr10
[2020-02-03] MEDS ORDERED: ASPIRIN 81 MG CHEWABLE TABLET ONE (16:50)
[2020-02-03] MEDS ORDERED: FOLIC ACID 5 MG/ML VIAL ONE (16:52)
--- NOTE | 2020-02-03 17:31 | P.HP ---
Certification for Inpatient Patient admitted to: Observation With expected LOS: <2 Midnights Patient will require the following post-hospital care: None Practitioner: I am a practitioner with admitting privileges, knowledge of patient current condition, hospital course, and medical plan of care. Services: Services provided to patient in accordance with Admission requirements found in Title 42 Section 412.3 of the Code of Federal Regulations <Yuriy Gibson - Last Filed: 02/03/20 17:49> Patient History Date of Service: 02/03/20 Primary Care Provider: Shelley Reason for admission: Syncope/altered mental status/possible CVA History of Present Illness: 74-year-old male with past medical history of dementia, type 2 diabetes and hypothyroidism who was brought to the emergency room via EMS with complaints of altered mental status. Per EMS report patient was at home sitting on the couch. When returned to see the patient she noticed he was slumped over on the couch. She was able to wake him up but he seems confused and not himself. EMS was called and patient was brought to the ED. In the emergency room patient it is alert and oriented x3. He has dementia and cannot give you much detail but is able to have a conversation. He states that he does remember slumping over, but does not remember much after that. Emergency room blood work shows unremarkable CBC. Creatinine at 1.25 with a GFR 57, blood glucose slightly elevated at 156 they UA is pending and the CK was slightly elevated at 565. Rest of lab work was unremarkable. CT of the head shows no acute pathology and no intracranial bleed. Chest x-ray reading is pending. Patient is not requiring O2. On physical exam patient is alert and oriented x3. He has no neurologic deficits and is at his baseline with strength in all extremities. He is able to tell me that he had a cardiac bypass graft and thinks they did 3 bypasses last year. Patient presented to the emergency room on 12/11/2018 with similar complaints. At the time patient had a carotid Doppler which showed plaquing in bilateral carotid arteries but no hemodynamics stenosis, an echocardiogram with normal left ventricular ejection fraction, dilated left atrium and mild mitral regurgitation. Trace of tricuspid regurgitation. Patient eventually had a cardiac catheterization the following month on 01/02/2019 where it was found that he had multiple vessel disease. Patient eventually had a cardiac bypass and per patient's statement possibly 3 bypasses at the time. Date of cardiac bypass is unknown but likely sometime in January of last year. Patient will be placed in observation and further evaluated. Home medications list reviewed: No - Past Medical/Surgical History Diabetic: No -: Diabetes mellitus type 2 -: Hypothyroidism -: Depression -: Dementia -: Diabetic neuropathy -: hyperlipidemia -: Cervical laminectomy (c4) -: Septoplasty -: Removal of carcinoma right eye -: lumbar laminectomy -: Removal of melanoma behind right ear -: lumbar laminectomy (L2,3,4,5) -: Arthroscopic rigth knee -: Lasix surgemarsha Psychosocial/ Personal History: Patient is - Family History Brother -: Heart disease, Stroke Father -: Cancer Notes: Mother -: Cancer Notes: decaesed - Social History Smoking Status: Never smoker Alcohol use: Yes CD- Drugs: No Caffeine use: Yes Place of Residence: Home <Yuriy Gibson - Last Filed: 02/03/20 17:49> Date of Service: 02/03/20 <Chato Yusuf - Last Filed: 02/03/20 18:31> Allergies No Known Allergies Allergy (Verified 01/01/19 14:35) Review of Systems General: As per HPI Eyes: Unremarkable ENT: Unremarkable Respiratory: Unremarkable Cardiovascular: As per HPI Gastrointestinal: Unremarkable Genitourinary: Unremarkable Musculoskeletal: Unremarkable Integumentary: Unremarkable Neurological: As per HPI, Unremarkable Lymphatics: Unremarkable <Yuriy Gibson - Last Filed: 02/03/20 17:49> Physical Examination - Vital Signs Temperature: 98.1 F Blood Pressure: 140/92 Pulse: 99 Respirations: 18 Pulse Ox (%): 97 (RA) - Physical Exam General: Alert, In no apparent distress, Oriented x3 HEENT: Atraumatic, Normocephalic, PERRLA Neck: Supple, No Thyromegaly, Other (Trachea midline) Respiratory: Clear to auscultation bilaterally, Normal air movement Cardiovascular: No edema, Normal pulses, Regular rate/rhythm, Normal S1 S2 Capillary refill: <2 Seconds Gastrointestinal: Normal bowel sounds, Soft and benign, Non-distended Musculoskeletal: No clubbing, No swelling, No contractures, No erythema Integumentary: No rashes, No breakdown, No significant lesion, No tenderness/swelling, Other (Cardiac bypass scar along the sternum) Neurological: Normal gait, Normal speech, Normal strength at 5/5 x4 extr, Normal tone - Studies Laboratory Data (last 24 hrs) 02/03/20 15:56: PT 11.5, INR 0.97, APTT 31.0 02/03/20 15:56: WBC 7.6, Hgb 15.2, Hct 44.3, Plt Count 209 02/03/20 15:56: Sodium 141, Potassium 4.3, BUN 34 H, Creatinine 1.25, Glucose 156 H <Yuriy Gibson - Last Filed: 02/03/20 17:49> - Studies Laboratory Data (last 24 hrs) 02/03/20 15:56: PT 11.5, INR 0.97, APTT 31.0 02/03/20 15:56: WBC 7.6, Hgb 15.2, Hct 44.3, Plt Count 209 02/03/20 15:56: Sodium 141, Potassium 4.3, BUN 34 H, Creatinine 1.25, Glucose 156 H <Chato Yusuf - Last Filed: 02/03/20 18:31> Assessment and Plan - Plan Impression: CVA versus TIA: Syncope with history of coronary artery bypass graft x3 1 year ago: Altered mental status with history of dementia: Type 2 diabetes mellitus: Hypothyroidism: Plan: CVA versus TIA: CT of the brain showed no intracranial bleeding. Patient had a similar incident 1 year ago and had full cardiac workup. Will order MRI of the brain. Will start patient on aspirin 81 mg daily. Fall precautions. Continuous telemetry. Syncope with history of coronary artery bypass graft x3 1 year ago: Patient had a similar event last year on 12/11/2018. At the time patient had an echocardiogram which showed normal EF, carotid Doppler which showed bilateral plaquing but no hemodynamics stenosis and eventually a cardiac catheterization which resulted in the patient having a Coronary artery bypass graft x3. Will order MRI as above. Will place patient on telemetry to monitor rhythm. Will order echocardiogram and carotid Doppler since it has been 1 year. Will consult Cardiology if necessary. Will place a PT consult as well. Altered mental status with history of dementia: At the time of examination patient is at his baseline. He is alert and oriented x3. He does have a history of mild dementia and is forgetful. He was able to tell me that he thinks he had triple bypass. 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 Will continue evaluation as above and adjust medications if necessary. Will resume home medications once verified. Type 2 diabetes mellitus: Will place patient on Accu-Cheks a.c. HS. Sliding scale insulin. Will resume home medications once verified. Hypothyroidism: Will resume all medications once verified. Discharge Plan: Home Plan to discharge in: 48 Hours - Advance Directives Does patient have a Living Will: No Does patient have a Durable POA for Healthcare: No - Code Status/Comfort Care Code Status Assessed: Yes Time Spent Managing Pts Care (In Minutes): 55 <Yuriy Gibson - Last Filed: 02/03/20 17:49> Physician Review Additional Text: Patient is 74 years of age was found unresponsive currently he was working outside washing the driveway there is no neurological disturbance no cranial nerve dysfunction no weakness of his arms or legs he has no problems speaking no facial asymmetry denies any chest pain labs unremarkable CT negative be no evidence of sepsis denies any fever for exposure to coronal virus infection vital signs stable admit for observation <Chato Yusuf - Last Filed: 02/03/20 18:31>
[2020-02-03] MEDS ORDERED: ACETAMINOPHEN 500 MG TAB PO PRN (17:41)
--- NOTE | 2020-02-03 18:03 | RAD REPORT ---
EXAM DESCRIPTION: Lizzeth Single View02/03/2020 5:06 pm CLINICAL HISTORY: Chest pain COMPARISON: 2019 FINDINGS: The lungs appear clear of acute infiltrate. The heart is normal size. Postsurgical changes involve the chest. IMPRESSION: No acute abnormalities displayed
[2020-02-03 18:24] VITALS: O2SAT 97
[2020-02-03] MEDS: NA CHLORIDE 0.9% 1,000 ML IV SCH (18:25)
[2020-02-03 18:37] VITALS: BMI 27.8
[2020-02-03] MEDS: INSULIN -REGULAR HUMAN 50 UNIT/0.5 ML ML SQ SCH (21:00)
[2020-02-03 21:52] LABS: Urine Appearance CLEAR; Urine Blood NEGATIVE (NEG); Urine Color YELLOW; Urine Glucose 1+ (NEG); Urine Protein NEGATIVE (NEG); Urine Specific Gravity >=1.030 (1.005-1.030)
[2020-02-03 21:59] LABS: Urine Bilirubin NEGATIVE (NEG)
[2020-02-03 22:00] LABS: Urine Bacteria <20 /HPF (NONE SEEN); Urine Culture Reflex Order NOT NEEDED; Urine RBC NONE SEEN /HPF (NONE SEEN)
[2020-02-04 05:44] LABS: Absolute Lymphocytes (CBC) 1.6 K/uL (0.7-4.9); Basophils % 0.4 % (0-1.3); Hematocrit 40.5 % (39.6-49.0); Lymphocytes % 26.6 % (15.3-44.8); MPV 8.6 fL (7.6-11.3); RBC Red Blood Cell Count 4.34 M/uL (4.33-5.43)
[2020-02-04 05:55] LABS: Magnesium 2.1 mg/dL (1.8-2.4); Potassium 4.2 mmol/L (3.5-5.1)
[2020-02-04] MEDS: INSULIN -REGULAR HUMAN 50 UNIT/0.5 ML ML SQ SCH ×2 (07:30→11:30)
[2020-02-04] MEDS ORDERED: PNEUMOCOCCAL VACCINE 0.5 ML IMVAC ONE (08:00)
[2020-02-04] MEDS ORDERED: ENOXAPARIN 40 MG/0.4 ML SQ SCH (09:00)
[2020-02-04] MEDS ORDERED: ASPIRIN 81 MG CHEWABLE TABLET PO SCH (09:00)
--- NOTE | 2020-02-04 11:19 | P.DS ---
Admission Date: 02/03/20 Discharge Date: 02/04/20 Primary Care Provider: Shelley Disposition: ROUTINE DISCHARGE Discharge Condition: GOOD Reason for Admission: Syncope/altered mental status/possible CVA Consultations: None Procedures: CT head without contrast FINDINGS: An intracranial bleed is not seen . The ventricles are normal in caliber. No extra-axial fluid collection is noted. Mild t low-density within periventricular, deep and subcortical white matter likely ischemic changes secondary to small vessel disease Fluid within the sinuses/ mastoids is not seen. IMPRESSION: No acute intracranial abnormality is seen. If patient's symptoms persist MRI of the brain would be recommended. Chest x-ray FINDINGS: The lungs appear clear of acute infiltrate. The heart is normal size. Postsurgical changes involve the chest. IMPRESSION: No acute abnormalities displayed MRI brain FINDINGS: No intracranial hemorrhage, mass or acute infarction. There is no edema or shift of midline structures. No extra-axial fluid collections. Salazar- matter/white matter junction is preserved. Signal voids are seen as a normal finding in the major intracranial vessels. Patient has minimal atrophy change along with minimal chronic ischemic change in the cerebral white matter. Ventricles are normal. Brainstem, thalamus and basal ganglia tissues spared any measurable ischemic disease. No sella or supra sella abnormality. No tonsillar ectopia. No globe or orbital content abnormality seen. Mastoid air cells and paranasal sinuses are clear. IMPRESSION: No acute infarction. No mass, hemorrhage or acute intracranial finding. The patient has mild chronic ischemic change is not significantly different from 2019. Ultrasound carotids FINDINGS: Normal high resistance waveforms are noted in both external carotid arteries. The common carotid arteries and internal carotid arteries show normal low resistance waveforms. Calcified plaquing changes are present in each carotid bulb, more prominent on the right. On visual inspection plaquing changes do not significantly narrow the vessel lumen. No dissection changes. Peak systolic and end diastolic velocity values and the ICA/CCA ratios are in the non-hemodynamically significant range. Antegrade flow seen in both vertebral arteries. Velocity values and ratios were recorded and are retained in the patient's imaging records. IMPRESSION: Right greater than left calcified and noncalcified plaquing changes in each carotid bulb. No hemodynamically significant stenosis. Echocardiogram Ordered but unable to obtained due to hospital staffing. Patient will require follow up with cardiology for further evaluation. Brief History of Present Illness: 74-year-old male with medical history of diabetes mellitus type 2, mild dementia presented to emergency department for syncope with altered mental status. Patient reports that he is out working in the heat and began to feel lightheaded followed by an episode of syncope. Patient was evaluated in the emergency department and admitted for further evaluation and management. Hospital Course: Patient was back at his baseline mental status on admission. Patient did well overnight with no new episodes. Patient denies any chest pain, shortness of breath. No focal neurological deficits noted. Patient is currently alert, oriented x3. Patient tolerating diet this morning without any difficulty. Patient has had a CT head brain did not show any acute findings, chest x-ray did not show any acute findings. Patient had MRI that showed no findings for acute CVA. Patient also had ultrasound of the carotids that showed some plaque but no hemodynamic changes. Patient is doing very well today, states he is feeling like he is back at his baseline. Labs are unremarkable. Patient was on telemetry overnight and did not have any arrhythmias. Plan would be for patient to be discharged today and follow up with both Cardiology and Neurology on an outpatient basis. Patient with history of mild dementia and depression, at discharge patient will continue with Wellbutrin XL 150 mg p.o. daily, Namenda 10 mg p.o. twice daily. Patient with history of diabetes mellitus type 2, at discharge patient will continue with metformin 1000 mg p.o. b.i.d.. Patient history of hypothyroidism, discharge patient continue with levothyroxine 100 mcg p.o. once daily. Vital Signs/Physical Exam: Temp Pulse Resp BP Pulse Ox 97 F 61 20 114/76 99 02/04/20 08:00 02/04/20 08:00 02/04/20 08:00 02/04/20 08:00 02/04/20 08:00 General: Alert, In no apparent distress HEENT: Atraumatic, PERRLA, EOMI Neck: Supple, JVD not distended Respiratory: Clear to auscultation bilaterally, Normal air movement Cardiovascular: Regular rate/rhythm, Normal S1 S2 Gastrointestinal: Normal bowel sounds, No tenderness Musculoskeletal: No tenderness Integumentary: No rashes Neurological: Normal speech, Normal tone, Normal affect Lymphatics: No axilla or inguinal lymphadenopathy Laboratory Data at Discharge: WBC 6.1 K/uL (4.3-10.9) D 02/04/20 05:20 Hgb 14.2 g/dL (13.6-17.9) 02/04/20 05:20 Hct 40.5 % (39.6-49.0) 02/04/20 05:20 Plt Count 183 K/uL (152-406) 02/04/20 05:20 PT 11.5 SECONDS (9.5-12.5) 02/03/20 15:56 INR 0.97 02/03/20 15:56 APTT 31.0 SECONDS (24.3-36.9) 02/03/20 15:56 Sodium 140 mmol/L (136-145) 02/04/20 05:20 Potassium 4.2 mmol/L (3.5-5.1) 02/04/20 05:20 BUN 26 mg/dL (7-18) H 02/04/20 05:20 Creatinine 1.04 mg/dL (0.55-1.3) 02/04/20 05:20 Glucose 109 mg/dL (74-106) H 02/04/20 05:20 Magnesium 2.1 mg/dL (1.8-2.4) 02/04/20 05:20 Home Medications: Bupropion *Xl* [Wellbutrin XL*] 150 mg PO DAILY 02/03/20 Cholecalciferol (Vitamin D3) [Vitamin D 1000 Iu Tab] 1,000 unit PO DAILY 02/03/20 Estazolam 2 mg PO BEDTIME 02/03/20 Gabapentin 1 tab PO BEDTIME 02/03/20 Gabapentin 2 tab PO DAILY 02/03/20 Levothyroxine Sodium 100 mcg PO DAILY 02/03/20 Memantine HCl [Namenda*] 10 mg PO BID 02/03/20 Metformin HCl 2 tab PO BID 02/03/20 Red Rice Yeast 2 tab PO BID 02/03/20 Patient Discharge Instructions: 1. Please follow up with her primary care doctor within 1 week to follow up this hospitalization. 2. You also need to follow up with both Cardiology and Neurology. 3. 74-year-old male was admitted for syncope with presentation of altered mental status. Patient reports that this event occurred while he was working out in the hot sun. Patient denies chest pain or palpitations prior to onset of syncope although he did feel lightheaded. Patient was without focal neurological deficits. Patient was back at his baseline mental status on admission. Patient did well overnight with no new episodes. Patient denies any chest pain, shortness of breath. No focal neurological deficits noted. Patient is currently alert, oriented x3. Patient tolerating diet this morning without any difficulty. Patient has had a CT head brain did not show any acute findings, chest x-ray did not show any acute findings. Patient had MRI that showed no findings for acute CVA. Patient also had ultrasound of the carotids that showed some plaque but no hemodynamic changes. Patient is doing very well today, states he is feeling like he is back at his baseline. Labs are unremarkable. Patient was on telemetry overnight and did not have any arrhythmias. Plan would be for patient to be discharged today and follow up with both Cardiology and Neurology on an outpatient basis. Patient with history of mild dementia and depression, at discharge patient will continue with Wellbutrin XL 150 mg p.o. daily, Namenda 10 mg p.o. twice daily. Patient with history of diabetes mellitus type 2, at discharge patient will continue with metformin 1000 mg p.o. b.i.d.. Patient history of hypothyroidism, discharge patient continue with levothyroxine 100 mcg p.o. once daily. Recommended daily 81 mg aspirin for cardio and neuro protective use. Diet: ADA Activity: Ad alexander Time spent managing pt's care (in minutes): 55
--- NOTE | 2020-02-04 12:27 | RAD REPORT ---
EXAM DESCRIPTION: US - CP - 02/04/2020 12:06 pm CLINICAL HISTORY: CVA COMPARISON: MRA Neck W/Wo Cont dated 12/11/2018 TECHNIQUE: Real-time sonographic evaluation of bilateral carotid and vertebral systems was performed . Salazar scale and Doppler interrogation were performed with waveform tracing bilaterally. FINDINGS: Normal high resistance waveforms are noted in both external carotid arteries. The common c arotid arteries and internal carotid arteries show normal low resistance waveforms. Calcified plaquing changes are present in each carotid bulb, more prominent on the right. On visual i nspection plaquing changes do not significantly narrow the vessel lumen. No dissection changes. Peak systolic and end diastolic velocity values and the ICA/CCA ratios are in the non-hemodynamically sign ificant range. Antegrade flow seen in both vertebral arteries. Velocity values and ratios were recorded and are retained in the patient's imaging records. IMPRESSION: Right greater than left calcified and noncalcified plaquing changes in each carotid bulb . No hemodynamically significant stenosis.
--- NOTE | 2020-02-04 12:29 | RAD REPORT ---
EXAM DESCRIPTION: MRI - Brain Wo Cont - 02/04/2020 11:11 am CLINICAL HISTORY: CVA COMPARISON: Brain W/Wo Cont dated 12/11/2018; Ct Stroke Brain Wo Cont dated 02/03/2020 TECHNIQUE: Sagittal T1-weighted images were obtained along with axial PD, heavily T2-weighted and T2 -FLAIR images. Axial DWI and ADC mapping sequences were also obtained along with coronal heavily T2-w eighted images. FINDINGS: No intracranial hemorrhage, mass or acute infarction. There is no edema or shift of midlin e structures. No extra-axial fluid collections. Salazar-matter/white matter junction is preserved. Signa l voids are seen as a normal finding in the major intracranial vessels. Patient has minimal atrophy change along with minimal chronic ischemic change in the cerebral white m atter. Ventricles are normal. Brainstem, thalamus and basal ganglia tissues spared any measurable isc hemic disease. No sella or supra sella abnormality. No tonsillar ectopia. No globe or orbital content abnormality se en. Mastoid air cells and paranasal sinuses are clear. IMPRESSION: No acute infarction. No mass, hemorrhage or acute intracranial finding. The patient has mild chronic ischemic change is not significantly different from 2019.
[2020-02-04 13:43] VITALS: BP 136/82; TEMP 97.7
[2020-02-04] MEDS: NA CHLORIDE 0.9% 1,000 ML IV SCH (14:00)
[2020-02-04] MEDS ORDERED: METFORMIN HCL 500 MG TAB PO SCH (17:00)
[2020-02-04] MEDS ORDERED: MEMANTINE HCL 10 MG TABLET PO SCH (21:00)
[2020-02-04] MEDS ORDERED: ESTAZOLAM 2 MG PO SCH (21:00)
[2020-02-05] MEDS ORDERED: LEVOTHYROXINE SOD 0.1 MG TAB PO SCH (06:30)
[2020-02-05] MEDS ORDERED: VITAMIN D 1000 UNIT TAB PO SCH (09:00)
[2020-02-05] MEDS ORDERED: BUPROPION HCL XL 150 MG TAB PO SCH (09:00)
--- NOTE | 2020-02-05 11:06 | EKG ---
Test Date: 2020-02-03 Test Time: 15:49:59 Valve Machine Operator: DIONNE MEASUREMENT RESULTS: Intervals: Rate: 97 SD: 146 QRSD: 80 QT: 348 QTc: 441 [place]: P: 4 SD: 146 QRS: 15 T: 64 INTERPRETIVE STATEMENTS: Normal sinus rhythm with sinus arrhythmia Possible Inferior infarct, age undetermined Abnormal ECG Compared to ECG 12/11/2018 11:56:43 Sinus bradycardia no longer present Myocardial infarct finding still present Electronically Signed On 02-05-20 11:03:10 CDT by Chance Stephens
== END 2020-02-04 14:45 | disposition home or self-care (01) ==
LOC: ER 15:22 → ERHOLD 17:43 → 2ND 18:04
PROVIDERS: ADMIT Internal Medicine Sleep Medicine; ATTEND Family Medicine
DX: R55 Syncope and collapse (principal); R41.82 Altered mental status, unspecified; I25.10 Atherosclerotic heart disease of native coronary artery without angina pectoris; F03.90 Unspecified dementia, unspecified severity, without behavioral disturbance, psychotic disturbance, mood disturbance, and anxiety; F32.9 Major depressive disorder, single episode, unspecified; E03.9 Hypothyroidism, unspecified; E11.40 Type 2 diabetes mellitus with diabetic neuropathy, unspecified; I65.23 Occlusion and stenosis of bilateral carotid arteries; Z11.59 Encounter for screening for other viral diseases; R94.31 Abnormal electrocardiogram [ECG] [EKG]; E78.5 Hyperlipidemia, unspecified; Z79.84 Long term (current) use of oral hypoglycemic drugs; Z79.899 Other long term (current) drug therapy; Z85.820 Personal history of malignant melanoma of skin; Z95.1 Presence of aortocoronary bypass graft
CPT/HCPCS: 96365; 93005; 85025 ×2; 81001; 80048 ×2; 36415; 83735; 82550 ×2; 85610; 82947 ×4; 85730; 84484; 70450; 71045; 93880; 70551; 97116; 97161; 99285; U0002; J1650; J7030; G0378 ×3; 90670

== ENCOUNTER 2021-10-06 17:18 | Emergency (ER) | payer OTHER, MEDICARE ==
--- OUTSIDE RECORDS SUMMARY | 2021-10-06 17:22 | XMS REPORT | Continuity of Care Document ---
:1945 Author Organization [facility] t Address [address] [place] [address] Care Team Providers Name Role Phone PETER Attending Clinician Unavailable MARCELA Attending Clinician Unavailable ROSA Attending Clinician Unavailable LEATHA Attending Clinician Unavailable Vanesa Nelson Attending Clinician [phone] Chhaya NAPIER Attending Clinician Unavailable GEORGETTE Attending Clinician Unavailable leatha Attending Clinician Unavailable MORIS OLIVARES Attending Clinician Unavailable EMANUEL BEASLEY Attending Clinician Unavailable LEATHA Admitting Clinician Unavailable leatha Admitting Clinician Unavailable MORIS OLIVARES Admitting Clinician Unavailable Payers Payer Name Policy Type Policy Number Effective Date Expiration Date S [place] MEDIC[place]: [id number] 2011 [facility] 00:00:00 [facility] [id number] 2017 OPTIONS (MEDICARE 00:00:00 SUPPLEMENT) MEDICARE PART A \T\ [id number] 2011 B 00:00:00 [facility] [id number] 2018 MEDICARE SUPPLEMENT 00:00:00 Problems This patient has no known problems. Allergies, Adverse Reactions, Alerts Allergy Allergy Status Severity Reaction(s) Onset Inactive Treating Comm ents Source Name Type Date Date Clinician NO KNOWN Drug Active Univers ALLERGIE Class [facility] of [facility] [facility] Medications This patient has no known medications. Procedures This patient has no known procedures. Encounters Start End Encounter Admission Attending Care Care Encounter Source Date/Time Date/Time Type Type Clinicians Facility Department ID 2021-09-30 2021-09-30 Emergency PETER [facility] [id number] [place] 00:00:00 00:00:00 APPLE [facility] 2021-07-21 2021-07-21 Outpatient MARLY MEDRANO [facility] [id number] [place] 00:00:00 00:00:[address] 2021-05-22 2021-05-22 Outpatient ROSA [facility] [id number] [place] 00:00:00 00:00:00 NARINDER Mendoza [facility] 2021-01-30 2021-01-30 Outpatient ROSA [facility] [id number] [place] 00:00:00 00:00:00 NARINDER [address] 2021-01-30 2021-01-30 Outpatient ROSA [facility] [id number] [place] 00:00:00 00:00:00 NARINDER Mata[facility] 2021-01-01 2021-01-01 Outpatient MARLY MEDRANO [facility] [id number] [place] 00:00:00 00:00:[address] 2020-12-18 2020-12-18 Outpatient KEFFER_A [facility] [id number] [place] 01:32:00 01:32:00 [facility] 2020-12-18 2020-12-18 Outpatient Dede Nelson [facility] [id number] 00:00:00 00:00:00 Vanesa [id number] 2020-12-16 2020-12-16 Outpatient MARLY MEDRANO [facility] [id number] [place] 00:00:00 00:00:[address] 2020-12-08 2020-12-08 Outpatient MARLY MEDRANO [facility] [id number] [place] 00:00:00 00:00:[address] 2020-12-08 2020-12-08 Outpatient [facility] [id number] [place] 00:00:00 00:00:[address] 2020-11-25 2020-11-25 Outpatient KEFFER_A [facility] [id number] [place] 11:50:00 11:50:00 525 [facility] 2020-11-25 2020-11-25 Outpatient MARLY MEDRANO [facility] [id number] [place] 00:00:00 00:00:[address] 2020-11-25 2020-11-25 Outpatient MARLY MEDRANO [facility] [id number] [place] 00:00:00 00:00:00 199 Method i 2020-11-25 2020-11-25 Outpatient MARLY MEDRANO [facility] [id number] [place] 00:00:00 00:00:00 317 Method i 2020-11-25 2020-11-25 Outpatient Dede Nelson [facility] [id number] 00:00:00 00:00:00 Vanesa [id number] 2020-11-21 2020-11-21 Outpatient MARLY MEDRANO [facility] [id number] [place] 00:00:00 00:00:00 610 Method i 2020-11-21 2020-11-21 Outpatient MARLY MEDRANO [facility] [id number] [place] 00:00:00 00:00:00 940 Method i 2020-09-15 2020-09-15 Outpatient Jessica NAPIER [facility] [id number] Univers 10:00:00 10:00:00 FAITH [id number] [facility] 2020-09-15 2020-09-15 [facility] [id number] Univers 10:00:00 10:00:00 FAITH [facility] 2020-08-25 2020-08-25 Outpatient [facility] [id number] Univers 10:00:00 10:00:00 [id number] [facility] 2020-08-25 2020-08-25 [facility] [id number] Univers 10:00:00 10:00:00 FAITH [facility] 2020-07-07 2020-07-07 Emergency GEORGETTE, [facility] [id number] [place] 00:00:00 00:00:00 CAROLYN [address] 2020-06-30 2020-06-30 Outpatient JERRELL_Luis [facility] [id number] [place] 04:42:00 04:42:00 228 [facility] 2020-05-21 2020-05-21 Outpatient keffer_a [facility] [id number] [place] 02:33:00 02:33:00 [facility]8 [facility] 2016-11-12 2016-11-12 Outpatient keffer_a [facility] [id number] [place] 10:59:00 10:59:00 0924 [facility] Results Test Description Test Time Test Comments Results Result Comments Source POCT-GLUCOSE METER 2019-01-15 08:21:00 Test Item Value Reference Range Interpretation Comme nts POC-GLUCOSE METER (BEAKER) (test 137 mg/dL 70-110 H TESTED AT [facility] [address] code = 1538) [facility] [id number] [id number] BASIC METABOLIC [id number] 06:40:00 Test Item Value Reference Range Interpretation [...] PATIEN TS. CBC W/PLT COUNT & AUTO [id number] 06:24:00 Test Item Value Reference Range Interpretation [...] PERCENT (BEAKER) (test code = 2801) POCT-GLUCOSE [id number] 21:26:00 Test Item Value Reference Range Interpretation Comments POC-GLUCOSE METER 225 mg/dL 70-110 H TESTED AT [facility] 6720 (BEAKER) (test code = JANAE BAEZA 1538) [address] POCT-GLUCOSE [id number] 17:36:00 Test Item Value Reference Range Interpretation Comments POC-GLUCOSE METER 114 mg/dL 70-110 H TESTED AT [facility] 6720 (BEAKER) (test code = JANAE Lopez [place] 1538) [address] POCT-GLUCOSE [id number] 12:34:00 Test Item Value Reference Range Interpretation Comments POC-GLUCOSE METER 103 mg/dL 70-110 TESTED AT [facility] 6720 (BEAKER) (test code = JANAE Lopez [place] 1538) [address] POCT-GLUCOSE [id number] 08:07:00 Test Item Value Reference Range Interpretation Comments POC-GLUCOSE METER 143 mg/dL 70-110 H TESTED AT [facility] 6720 (BEAKER) (test code = JANAE Lopez [place] 1538) [address] [id number] 06:42:00 Test Item Value Reference Range Interpretation Comments MAGNESIUM (BEAKER) (test code = 1.6 mg/dL 1.6-2.6 627) BASIC METABOLIC [id number] 06:42:00 Test Item Value Reference Range Interpretation [...] PATIEN TS. CBC W/PLT COUNT & AUTO [id number] 05:58:00 Test Item Value Reference Range Interpretation [...] PERCENT (BEAKER) (test code = 2801) POCT-GLUCOSE [id number] 21:36:00 Test Item Value Reference Range Interpretation Comments POC-GLUCOSE METER 144 mg/dL 70-110 H TESTED AT [facility] 6720 [facility] (test code = JANAE Lopez [place] 1538) [address] POCT-GLUCOSE [id number] 17:27:00 Test Item Value Reference Range Interpretation Comments POC-GLUCOSE METER 115 mg/dL 70-110 H TESTED AT [place] [address] ([facility]) (test code = JANAE Lopez [facility] 1538) [address] POCT-GLUCOSE [id number] 12:14:00 Test Item Value Reference Range Interpretation Comments POC-GLUCOSE METER 116 mg/dL 70-110 H TESTED AT [place] [address] ([facility]) (test code = JANAE Lopez [facility] 1538) [address] RAD, CHEST, 1 VIEW, NON [id number] 11:41:00Reason for exam:->PTXShould this be performed at the bedside?->YesFINAL REPORT History: Pneumothorax Comparison: 01/12/2019 Findings: The lungsare clear. No definite pneumothorax. Question minimal left pleural effusion. No right pleural effusion. The heart shadow is normal in size . Sternotomy wires are present. Degenerative changes are present in the spine and shoulders. Signed: Darlene Marinoort Verified Date/Time: 01/13/2019 11:41:52Reading Location: [address] Reading Room POCT-GLUCOSE [id number] 07:44:00 Test Item Value Reference Range Interpretation Comments POC-GLUCOSE METER 139 mg/dL 70-110 H TESTED AT [facility] 6720 [facility] (test code = JANAE Lopez [facility] 1538) [address] [id number] 07:29:00 Test Item Value Reference Range Interpretation Comments MAGNESIUM (BEAKER) (test code = 1.7 mg/dL 1.6-2.6 627) BASIC METABOLIC [id number] 07:29:00 Test Item Value Reference Range Interpretation [...] PATIEN TS. CBC W/PLT COUNT & AUTO [id number] 05:50:00 Test Item Value Reference Range Interpretation [...] PERCENT (BEAKER) (test code = 2801) POCT-GLUCOSE [id number] 21:08:00 Test Item Value Reference Range Interpretation Comments POC-GLUCOSE METER 171 mg/dL 70-110 H TESTED AT [place] [address] [facility] (test code = JANAE [place] 1538) [address] POCT-GLUCOSE [id number] 16:46:00 Test Item Value Reference Range Interpretation Comments POC-GLUCOSE METER 141 mg/dL 70-110 H TESTED AT [place] [address] ([facility]) (test code = JANAE [place] 1538) [address] POCT-GLUCOSE [id number] 12:27:00 Test Item Value Reference Range Interpretation Comments POC-GLUCOSE METER 188 mg/dL 70-110 H TESTED AT [place] [address] [facility] (test code = JANEA Lopez [place] 1538) [address] HEMOGLOBIN [id number] 08:20:00 Test Item Value Reference Range Interpretation Comments [facility]GLOBIN A[facility]C [facility] (test code = 6.4 % 4.3-6.1 H 368) POCT-GLUCOSE [id number] 07:57:00 Test Item Value Reference Range Interpretation Comments POC-GLUCOSE METER 141 mg/dL 70-110 H TESTED AT [place] [address] ([facility]) (test code = JANAE [place] 1538) [address] RAD, CHEST, 1 VIEW, NON [id number] 04:42:00Reason for exam:->Post-op CABG/respiratory insufficiencyShould this be [...] MDReport Verified Date/Time: 01/12/2019 04:42:54 Reading Location: [address] Reading Room BASIC METABOLIC [id number] 04:38:00 Test Item Value Reference Range Interpretation [...] PATIEN TS. CBC W/PLT COUNT & AUTO [id number] 04:36:00 Test Item Value Reference Range Interpretation [...] 0-1 PERCENT (BEAKER) (test code = 2801) RAD, CHEST, 1 VIEW, NON [id number] 07:35:00Reason for exam:->Post-op CABG/respiratory insufficiencyShould this be [...] bibasilar atelectasis status post extubation. Signed: Bashir Ojedaeport Verified Date/Time: 01/11/2019 07:35:32 Reading Location: [facility] Radiology Reading Room [id number] 06:20:00 Test Item Value Reference Range Interpretation Comments ACTIVATED CLOTTING TIME 109 sec TEST ED AT [place] [address] ([facility]) (test code = NATOREGINA Jessica [place] [address]) [address] [id number] 06:20:00 Test Item Value Reference Range Interpretation Comments ACTIVATED CLOTTING TIME 433 sec TEST ED AT [place] [address] ([facility]) (test code = JANAE Lopez [place] [address]) [address] [id number] 06:20:00 Test Item Value Reference Range Interpretation Comments ACTIVATED CLOTTING TIME 389 sec TEST ED AT [place] [address] ([facility]) (test code = JANAE Lopez [place] [address]) [address] [id number] 06:20:00 Test Item Value Reference Range Interpretation Comments ACTIVATED CLOTTING TIME 444 sec TEST ED AT [place] [address] ([facility]) (test code = JANAE Lopez [place] [address]) [address] [id number] 03:54:00 Test Item Value Reference Range Interpretation Comments MAGNESIUM (BEAKER) 2.2 mg/dL 1.6-2.6 Specimen slightly (test code = 627) hemolyzed [id number] 03:54:00 Test Item Value Reference Range Interpretation Comments PHOSPHORUS (BEAKER) 3.4 mg/dL 2.3-4.7 Specimen slightly (test code = 604) hemolyzed BASIC METABOLIC [id number] 03:54:00 Test Item Value Reference Range Interpretation [...] 697) EGFR (BEAKER) (test 89 mL/min/1.73 ESTIMA GUSTAVO GFR IS code = 1092) sq m NOT ACCURATE CREATININE CLEARANCE IN PREDICTING GLOMERULAR FILTRATION RATE . ESTIMATED GFR I S NOT APPLICABLE FOR DIALYSIS PATIEN TS. CBC W/PLT COUNT & AUTO [id number] 03:37:00 Test Item Value Reference Range Interpretation [...] (BEAKER) (test code = 2801) BLOOD GAS, [id number] 03:26:00 Test Item Value Reference Range Interpretation [...] (test code = 1819) 100.0 % CALCIUM, [id number] 03:26:00 Test Item Value Reference Range Interpretation Comments CALCIUM IONIZED (BEAKER) (test 1.15 mmol/L 1.12-1.27 code = 698) PH, BLOOD (BEAKER) (test code = 7.38 1810) [id number] 23:54:00 Test Item Value Reference Range Interpretation Comments MAGNESIUM (BEAKER) (test code = 1.9 mg/dL 1.6-2.6 627) CALCIUM, [id number] 23:28:00 Test Item Value Reference Range Interpretation Comments CALCIUM IONIZED (BEAKER) (test 1.11 mmol/L 1.12-1.27 L code = 698) PH, BLOOD (BEAKER) (test code = 7.36 1810) SODIUM NA-STAT [id number] 23:27:00 Test Item Value Reference Range Interpretation Comments SODIUM (BEAKER) (test code = 381) 139 meq/L 135-148 POTASSIUM-STAT [id number] 23:27:00 Test Item Value Reference Range Interpretation Comments POTASSIUM (BEAKER) (test code = 4.0 meq/L 3.6-5.5 379) BLOOD GAS, [id number] 23:27:00 Test Item Value Reference Range Interpretation [...] 21-29 = 388) BASE EXCESS ARTERIAL (BEAKER) -2.3 mmol/L -2.0-3.0 L (test code = 387) PATIENT TEMPERATURE (BEAKER) 36.6 C (test code = 1818) FIO2 (BEAKER) (test code = 1819) 36.0 % GLUCOSE-STAT [id number] 23:27:00 Test Item Value Reference Range Interpretation Comments GLUCOSE RANDOM (BEAKER) (test code 164 mg/dL 70-110 H = 652) HGB/HCT (H&H) - STAT [id number] 23:27:00 Test Item Value Reference Range Interpretation Comments HEMOGLOBIN (BEAKER) (test code = 12.2 g/dL 13.0-16.8 L 410) HEMATOCRIT (BEAKER) (test code = 36.0 % 40.0-50.0 L 411) BLOOD GAS, [id number] 21:05:00 Test Item Value Reference Range Interpretation [...] code = 1819) 40.0 % BLOOD GAS, [id number] 20:30:00 Test Item Value Reference Range Interpretation [...] code = 1819) 40.0 % BLOOD GAS, [id number] 19:20:00 Test Item Value Reference Range Interpretation [...] code = 1819) 60.0 % SODIUM NA-STAT [id number] 19:18:00 Test Item Value Reference Range Interpretation Comments SODIUM (BEAKER) (test code = 381) 143 meq/L 135-148 BLOOD GAS, [id number] 16:51:00 Test Item Value Reference Range Interpretation [...] (test code = 1819) 40.0 % GLUCOSE-STAT [id number] 16:51:00 Test Item Value Reference Range Interpretation Comments GLUCOSE RANDOM (BEAKER) (test code 121 mg/dL 70-110 H = 652) HGB/HCT (H&H) - STAT [id number] 16:51:00 Test Item Value Reference Range Interpretation Comments HEMOGLOBIN (BEAKER) (test code = 13.3 g/dL 13.0-16.8 410) HEMATOCRIT (BEAKER) (test code = 39.0 % 40.0-50.0 L 411) SODIUM NA-STAT [id number] 16:50:00 Test Item Value Reference Range Interpretation Comments SODIUM (BEAKER) (test code = 381) 140 meq/L 135-148 POTASSIUM-STAT [id number] 16:50:00 Test Item Value Reference Range Interpretation Comments POTASSIUM (BEAKER) (test code = 4.6 meq/L 3.6-5.5 379) RAD, CHEST, 1 VIEW, NON [id number] 15:56:00Reason for exam:->ETT/POST OPShould this be performed [...] Hernandezeport Verified Date/Time: 01/10/2019 15:56:43 Reading Location: [address] Consult Reading Room [id number] 14:51:00 Test Item Value Reference Range Interpretation Comments MAGNESIUM (BEAKER) 1.6 mg/dL 1.6-2.6 Specimen slightly (test code = 627) hemolyzed [id number] 14:51:00 Test Item Value Reference Range Interpretation Comments PHOSPHORUS (BEAKER) 3.2 mg/dL 2.3-4.7 Specimen slightly (test code = 604) hemolyzed BASIC METABOLIC [id number] 14:51:00 Test Item Value Reference Range Interpretation [...] APPLICABLE FOR DIALYSIS PATIEN TS. LACTIC ACID, [id number] 14:31:00 Test Item Value Reference Range Interpretation Comments LACTATE BLOOD 1.8 mmol/L 0.5-2.2 Specimen sligh tly ARTERIAL (2) (BEAKER) hemoly zed (test code = 2874) PROTHROMBIN [id number] 14:30:00 Test Item Value Reference Range Interpretation [...] INR is2.5-3.5 for patients wiht mechanical heart valves.[id number] 14:30:00 Test Item Value Reference Range Interpretation Comments FIBRINOGEN LEVEL (BEAKER) (test 248 mg/dl 225-434 code = 658) [id number] 14:30:00 Test Item Value Reference Range Interpretation Comments PARTIAL THROMBOPLASTIN TIME 30.0 seconds 22.5-36.0 (BEAKER) (test code = 760) CBC W/PLT COUNT & AUTO [id number] 14:19:00 Test Item Value Reference Range Interpretation [...] PERCENT (BEAKER) (test code = 2801) PLATELET [id number] 14:18:00 Test Item Value Reference Range Interpretation Comments PLATELET COUNT (BEAKER) (test 139 K/CU MM 150-450 L code = 756) BLOOD GAS, [id number] 14:14:00 Test Item Value Reference Range Interpretation [...] code = 1819) 60.0 % OXYGEN SATURATION, [id number] 14:13:00 Test Item Value Reference Range Interpretation Comments O2 SATURATION (MEASURED) (BEAKER) 74.9 % (test code = 1455) CALCIUM, [id number] 14:13:00 Test Item Value Reference Range Interpretation Comments CALCIUM IONIZED (BEAKER) (test 1.15 mmol/L 1.12-1.27 code = 698) PH, BLOOD (BEAKER) (test code = 7.37 1810) BLOOD GAS, [id number] 12:45:00 Test Item Value Reference Range Interpretation [...] (test code = 1819) 100.0 % POTASSIUM-STAT [id number] 12:45:00 Test Item Value Reference Range Interpretation Comments POTASSIUM (BEAKER) (test code = 5.6 meq/L 3.6-5.5 H 379) GLUCOSE-STAT [id number] 12:45:00 Test Item Value Reference Range Interpretation Comments GLUCOSE RANDOM (BEAKER) (test code 146 mg/dL 70-110 H = 652) HGB/HCT (H&H) - STAT [id number] 12:45:00 Test Item Value Reference Range Interpretation Comments HEMOGLOBIN (BEAKER) (test code = 11.8 g/dL 13.0-16.8 L 410) HEMATOCRIT (BEAKER) (test code = 35.0 % 40.0-50.0 L 411) CALCIUM, [id number] 12:44:00 Test Item Value Reference Range Interpretation Comments CALCIUM IONIZED (BEAKER) (test 1.12 mmol/L 1.12-1.27 code = 698) PH, BLOOD (BEAKER) (test code = 7.36 1810) SODIUM NA-STAT [id number] 12:44:00 Test Item Value Reference Range Interpretation Comments SODIUM (BEAKER) (test code = 381) 136 meq/L 135-148 BLOOD GAS, [id number] 12:10:00 Test Item Value Reference Range Interpretation [...] code = 1819) 70.0 % SODIUM NA-STAT [id number] 12:10:00 Test Item Value Reference Range Interpretation Comments SODIUM (BEAKER) (test code = 381) 131 meq/L 135-148 L POTASSIUM-STAT [id number] 12:10:00 Test Item Value Reference Range Interpretation Comments POTASSIUM (BEAKER) (test code = 7.0 meq/L 3.6-5.5 HH 379) GLUCOSE-STAT [id number] 12:10:00 Test Item Value Reference Range Interpretation Comments GLUCOSE RANDOM (BEAKER) (test code 166 mg/dL 70-110 H = 652) HGB/HCT (H&H) - STAT [id number] 12:10:00 Test Item Value Reference Range Interpretation Comments HEMOGLOBIN (BEAKER) (test code = 11.4 g/dL 13.0-16.8 L 410) HEMATOCRIT (BEAKER) (test code = 34.0 % 40.0-50.0 L 411) POTASSIUM-STAT [id number] 11:49:00 Test Item Value Reference Range Interpretation Comments POTASSIUM (BEAKER) (test code = 5.9 meq/L 3.6-5.5 H 379) HGB/HCT (H&H) - STAT [id number] 11:49:00 Test Item Value Reference Range Interpretation Comments HEMOGLOBIN (BEAKER) (test code = 11.1 g/dL 13.0-16.8 L 410) HEMATOCRIT (BEAKER) (test code = 33.0 % 40.0-50.0 L 411) BLOOD GAS, [id number] 11:48:00 Test Item Value Reference Range Interpretation [...] (test code = 1819) 80.0 % GLUCOSE-STAT [id number] 11:48:00 Test Item Value Reference Range Interpretation Comments GLUCOSE RANDOM (BEAKER) (test code 173 mg/dL 70-110 H = 652) SODIUM NA-STAT [id number] 11:48:00 Test Item Value Reference Range Interpretation Comments SODIUM (BEAKER) (test code = 381) 134 meq/L 135-148 L CALCIUM, [id number] 10:40:00 Test Item Value Reference Range Interpretation Comments CALCIUM IONIZED (BEAKER) (test 1.19 mmol/L 1.12-1.27 code = 698) PH, BLOOD (BEAKER) (test code = 7.37 1810) SODIUM NA-STAT [id number] 10:40:00 Test Item Value Reference Range Interpretation Comments SODIUM (BEAKER) (test code = 381) 138 meq/L 135-148 POTASSIUM-STAT [id number] 10:40:00 Test Item Value Reference Range Interpretation Comments POTASSIUM (BEAKER) (test code = 4.6 meq/L 3.6-5.5 379) HGB/HCT (H&H) - STAT [id number] 10:40:00 Test Item Value Reference Range Interpretation Comments HEMOGLOBIN (BEAKER) (test code = 14.9 g/dL 13.0-16.8 410) HEMATOCRIT (BEAKER) (test code = 44.0 % 40.0-50.0 411) BLOOD GAS, [id number] 10:40:00 Test Item Value Reference Range Interpretation [...] (test code = 1819) 100.0 % GLUCOSE-STAT [id number] 10:40:00 Test Item Value Reference Range Interpretation Comments GLUCOSE RANDOM (BEAKER) (test code 118 mg/dL 70-110 H = 652) LIPID [id number] 12:20:00 Test Item Value Reference Range Interpretation [...] INR is2.5-3.5 for patients wiht mechanical heart valves.[id number] 12:11:00 Test Item Value Reference Range Interpretation Comments PARTIAL THROMBOPLASTIN TIME 33.1 seconds 22.5-36.0 (BEAKER) (test code = 760) RAD, CHEST, 1 VIEW, NON [id number] 17:50:00Reason for exam:- >DIZZINESSShould this be performed at the bedside?->YesFINAL REPORT Chest, portable AP view History: Dizziness Comparison: None IMPRESSION: The cardiac silhouette is identified by portable technique. The mediastinal and hilar contours are unremarkable. Bibasilar atelectasis is present. No definite focal consolidation, sizable pleural effusion, or pneumothorax. No acute osseous abdomen bodies. Signed: Duane Marinelli MDReport Verified Date/Time: 01/05/2019 17:50:58 Reading Location: [facility] [id number] Consult Reading Room TROPONIN [id number] 17:27:00 Test Item Value Reference Range Interpretation [...] 0-100 (test code = 700) BASIC METABOLIC [id number] 17:18:00 Test Item Value Reference Range Interpretation [...] ESTIMATED GFR. CBC W/PLT COUNT & AUTO [id number] 16:52:00 Test Item Value Reference Range Interpretation [...] % 0-1 PERCENT (BEAKER) (test code = 7676)
[2021-10-06 17:53] LABS: Protime INR 1.31
[2021-10-06 18:01] LABS: Absolute Lymphocytes (CBC) 0.5 K/uL (0.7-4.9); Hematocrit 33.8 % (39.6-49.0); MPV 8.5 fL (7.6-11.3); RBC Red Blood Cell Count 3.84 M/uL (4.33-5.43)
[2021-10-06 18:13] LABS: Potassium 4.3 mmol/L (3.5-5.1)
--- NOTE | 2021-10-06 18:16 | RAD REPORT ---
EXAM DESCRIPTION: RAD - Chest Single View - 10/06/2021 6:08 pm CLINICAL HISTORY: preop Chest pain. COMPARISON: Chest Single View dated 02/03/2020; Chest Single View dated 12/11/2018; Chest Pa And Lat (2 Views) dated 02/24/2017 FINDINGS: Portable technique limits examination quality. The lungs are grossly clear. The heart is normal in size. Sternotomy wires. IMPRESSION: No acute intrathoracic process suspected.
--- NOTE | 2021-10-06 18:17 | RAD REPORT ---
EXAM DESCRIPTION: RAD - Hip Right 2 View - 10/06/2021 6:07 pm CLINICAL HISTORY: PAIN COMPARISON: No comparisons FINDINGS: Intratrochanteric fracture of the proximal right femur is seen with mild varus angulation.
[2021-10-06] MEDS ORDERED: Ringers Lactate 1,000 ML IV ONE (18:26)
[2021-10-06 18:36] LABS: Blood Morphology Comment NOT SEEN (NOT SEEN); Platelet Estimate ADEQ; White Blood Cell Scan OK (OK)
--- NOTE | 2021-10-06 18:40 | RAD REPORT ---
EXAM DESCRIPTION: CT - Head Brain Wo Cont - 10/06/2021 6:28 pm CLINICAL HISTORY: TRAUMA Fall, trauma, head injury COMPARISON: Ct Stroke Brain Wo Cont dated 02/03/2020 TECHNIQUE: All CT scans are performed using dose optimization technique as appropriate and may inclu de automated exposure control or mA/KV adjustment according to patient size. FINDINGS: No intracranial hemorrhage, hydrocephalus or extra-axial fluid collection.Mild generalized brain atrophy is present with mild periventricular and deep white matter chronic microvascular ische benitez changes.No areas of brain edema or evidence of midline shift. The paranasal sinuses and mastoids are clear. The calvarium is intact. IMPRESSION: No acute intracranial abnormality.
--- NOTE | 2021-10-06 19:31 | ER ---
Nurse's Notes [facility] Name: Jhonatan Haro Sr Age: 76 yrs Sex: Male : 1945 Arrival Date: 10/06/2021 Time: 17:23 Bed 2 Private MD: Diagnosis: Displaced intertrochanteric fracture of right femur Presentation: 10/06 17:15 Chief complaint: EMS states: Fall with right leg/hip injury-r/o FX/dislocation-right jg9 extremity rotated laterally, and short compared to left. Ebola Screen: Patient negative for fever greater than or equal to 101.5 degrees Fahrenheit, and additional compatible Ebola Virus Disease symptoms Patient denies exposure to infectious person. Patient denies travel to an Ebola-affected area in the 21 days before illness onset. 17:15 Method Of Arrival: EMS: [facility] jg9 17:25 Initial Sepsis Screen: Does the patient meet any 2 criteria? No. Patient's initial jg9 sepsis screen is negative. Does the patient have a suspected source of infection? No. Patient's initial sepsis screen is negative. Risk Assessment: Do you want to hurt yourself or someone else? Patient reports no desire to harm self or others. Onset of symptoms was October 06, 2021. 17:25 Acuity: ROBLES 3 jg9 17:48 Coronavirus screen: Vaccine status: Patient reports receiving the 2nd dose of the covid jg9 vaccine. 17:48 Coronavirus screen: Vaccine status:. jg9 Triage Assessment: 17:15 General: Appears in no apparent distress. Behavior is calm, cooperative, Smells of. jg9 Pain: Denies pain. Musculoskeletal: r hip FX/dislocation-rotation laterally and short when compared to right. Historical: - Allergies: 17:29 No Known Allergies; jg9 - Home Meds: 17:29 gabapentin 300 mg Oral cap 1 cap 3 times per day [Active]; jg9 - PMHx: 17:29 Dementia; Diabetes - NIDDM; Hypothyroidism; jg9 - Immunization history:: Adult Immunizations unknown. - Social history:: Smoking status: Patient/guardian denies using tobacco, the patient reports quitting approximately 50 years ago. Screenin:30 Abuse screen: Denies threats or abuse. Denies injuries from another. Nutritional jg9 screening: No deficits noted. Tuberculosis screening: No symptoms or risk factors identified. Fall Risk Fall in past 12 months (25 points). Secondary diagnosis (15 points) dementia, impaired mobility, IV access (20 points). Mental Status- Overestimates/Forgets Limitations (15 pts.). Assessment: 18:49 Reassessment: No changes from previously documented assessment. Patient is alert, jg9 oriented x 3, equal unlabored respirations, skin warm/dry/pink. Patient denies pain at this time. 19:33 General: Appears in no apparent distress. Behavior is calm, cooperative. Pain: Denies lp1 pain. Neuro: Level of Consciousness is awake, obeys commands, Oriented to person, place. Cardiovascular: Patient's skin is warm and dry. Pulses are palpable in right dorsalis pedis artery and left dorsalis pedis artery. Respiratory: Respiratory effort is even, unlabored. GI: Abdomen is non-distended. : Davis in place to gravity drainage. EENT: No deficits noted. Derm: Skin is intact, Skin is dry, Skin is normal. Musculoskeletal: Range of motion: limited in right hip. 19:34 Reassessment: Family at bedside aware of pending transfer. [facility] 20:30 Reassessment: family at bedside aware of waiting for full approval;. General: Appears lp1 in no apparent distress. comfortable, Behavior is cooperative. Neuro: Level of Consciousness is awake, obeys commands, Oriented to person, place. Respiratory: Respiratory effort is even, unlabored, Respiratory pattern is regular. Derm: Skin is intact, Skin is dry, Skin is normal. 21:10 Reassessment: Nurse to Nurse reports given to RANDEE Minor for patient transfer to [address] [place] [address]. 21:22 Reassessment: EMS at bedside for transfer. [facility] Vital Signs: 17:25 BP 132 / 102; Pulse 90; Resp 14 S; Temp 98.7(A); Pulse Ox 100% on R/A; Weight 95.25 kg; jg9 Height 6 ft. 2 in. (187.96 cm) (R); Pain 0/10; 18:45 BP 178 / 90; Pulse 94; Resp 17 S; Pulse Ox 96% on R/A; jg9 19:33 BP 146 / 94; Pulse 95; Resp 16; Temp 98.1(O); Pulse Ox 99% on R/A; Pain 0/10; lp1 20:30 BP 165 / 72; Pulse 90; Resp 16; Pulse Ox 96% on R/A; Pain 0/10; lp1 17:25 Body Mass Index 26.96 (95.25 kg, 187.96 cm) jg9 ED Course: 17:23 Patient arrived in ED. jr8 17:23 Hernesto Khan PA is PHCP. jr8 17:23 Emilia Castaneda MD is Attending Physician. jr8 17:25 Anya Zhang, RANDEE is Primary Nurse. jg9 17:29 Triage completed. jg9 17:30 Inserted saline lock: 18 gauge in right antecubital area, using aseptic technique. jg9 Blood collected. 17:31 Arm band placed on right wrist. jg9 17:31 Patient has correct armband on for positive identification. Bed in low position. Call jg9 light in reach. Side rails up X 1. 17:47 Maintain EMS IV. Dressing intact. Site clean \T\ dry. Gauge \T\ site: 20g r forearm. jg 9 18:07 initiated transfer to [facility]. bd 18:09 XRAY Hip RIGHT 2 view In Process Unspecified. EDMS 18:10 XRAY Chest (1 view) In Process Unspecified. EDMS 18:29 CT Head Brain wo Cont In Process Unspecified. EDMS 18:49 Davis cath inserted, using sterile technique, 16 Fr., by fl, balloon inflated, to jg9 gravity drainage. 19:19 Primary Nurse role handed off by Anya Zhang, RN [facility] 19:20 Luciano from [facility] called to inform us that he is still waiting for [facility] the Hospitalist to call back. 19:32 Opal Bhakta, RANDEE is Primary Nurse. lp1 20:36 connected Sean Clemons NP with the Hospitalist from [facility]. mw2 20:41 administrative approval given by Enrrique Bowles/patient has been accepted to [address] bed 1809/ Dr. Carlos accepted the patient in transfer/report to be called to [phone]. 21:05 No provider procedures requiring assistance completed. lp1 21:41 Primary Nurse role handed off by Opal Bhakta RN lp1 21:41 PHCP role handed off by Hernesto Khan PA lp1 21:41 Attending Physician role handed off by Emilia Castaneda MD lp1 21:41 Patient transferred, IV remains in place. lp1 Administered Medications: 18:43 Drug: Ringers - Lactated Ringers Solution 1000 ml Route: IV; Rate: bolus; Site: left [facility] hand; 21:30 Drug: morphine 4 mg {Note: RASS 0.} Route: IVP; Site: right forearm; lp1 21:42 Follow up: Response: Medication administered at discharge. lp1 21:30 Drug: Zofran (Ondansetron) 4 mg Route: IVP; Site: right forearm; lp1 21:42 Follow up: Response: Medication administered at discharge. lp1 Output: 21:40 Urine: 500ml (Davis); Total: 500ml. lp1 Outcome: 19:30 ER care complete, transfer ordered by jr8 21:06 Condition: stable lp1 21:06 Instructed on the need for transfer. 21:41 Transferred by ground EMS to [facility], Transfer form completed. lp1 X-rays sent w/ patient. 21:41 Patient left the ED. lp1 21:42 Patient left the ED. lp1 Signatures: Dispatcher [employer] EDMS Francine Juarez Laura, RN RN lp1 Hernesto Khan PA PA jr8 Robb Currie 2 Anya Nava RN RN 6 Anya Zhang RN RN jg9 Corrections: (The following items were deleted from the chart) 19:00 18:45 BP 178 / 90; Pulse 94bpm; Resp 1bpm; Spontaneous; Pulse Ox 96% RA; jg9 jg9
--- NOTE | 2021-10-06 19:31 | EDPHYS ---
Physician Documentation [facility] Name: Jhonatan Haro Sr Age: 76 yrs Sex: Male : 1945 Arrival Date: 10/06/2021 Time: 17:23 Bed 2 Private MD: ED Physician HPI: 10/06 18:04 This 76 yrs old Male presents to ER via EMS with complaints of Fall Injury. [facility] 18:04 Details of fall: The patient fell from an upright position, while standing. Onset: The [facility] symptoms/episode began/occurred acutely, today. Associated injuries: The patient sustained right leg, painful injury. Severity of symptoms: At their worst the symptoms were moderate, in the emergency department the symptoms are unchanged. The patient has not experienced similar symptoms in the past. The patient has not recently seen a physician. 18:05 This is a 76-year-old male patient with early onset dementia that presented to the [facility] emergency room with a accidental mechanical fall that happened at home. Patient stated that he landed on his right side hitting his right hip. Since then has had externally rotated and shortened right hip.. Historical: - Allergies: 17:29 No Known Allergies; jg9 - Home Meds: 17:29 gabapentin 300 mg Oral cap 1 cap 3 times per day [Active]; jg9 - PMHx: 17:29 Dementia; Diabetes - NIDDM; Hypothyroidism; jg9 - Immunization history:: Adult Immunizations unknown. - Social history:: Smoking status: Patient/guardian denies using tobacco, the patient reports quitting approximately 50 years ago. ROS: 18:05 Eyes: Negative for injury, pain, redness, and discharge, ENT: Negative for injury, jr8 pain, and discharge, Neck: Negative for injury, pain, and swelling, Cardiovascular: Negative for chest pain, palpitations, and edema, Respiratory: Negative for shortness of breath, cough, wheezing, and pleuritic chest pain, Abdomen/GI: Negative for abdominal pain, nausea, vomiting, diarrhea, and constipation, Back: Negative for injury and pain, Skin: Negative for injury, rash, and discoloration, Neuro: Negative for headache, weakness, numbness, tingling, and seizure. 18:05 MS/extremity: Positive for decreased range of motion, pain, tenderness, of the right leg. Exam: 18:05 Constitutional: This is a well developed, well nourished patient who is awake, alert, jr8 and in no acute distress. Head/Face: Normocephalic, atraumatic. Eyes: Pupils equal round and reactive to light, extra-ocular motions intact. Lids and lashes normal. Conjunctiva and sclera are non-icteric and not injected. Cornea within normal limits. Periorbital areas with no swelling, redness, or edema. ENT: Nares patent. No nasal discharge, no septal abnormalities noted. Oropharynx with no redness, swelling, or masses, exudates, or evidence of obstruction, uvula midline. Mucous membranes moist. Neck: Trachea midline, no thyromegaly or masses palpated, and no cervical lymphadenopathy. Supple, full range of motion without nuchal rigidity, or vertebral point tenderness. No Meningismus. Cardiovascular: Regular rate and rhythm with a normal S1 and S2. No gallops, murmurs, or rubs. Normal PMI, no JVD. No pulse deficits. Respiratory: Lungs have equal breath sounds bilaterally, clear to auscultation and percussion. No rales, rhonchi or wheezes noted. No increased work of breathing, no retractions or nasal flaring. Abdomen/GI: Soft, non-tender, with normal bowel sounds. No distension or tympany. No guarding or rebound. No evidence of tenderness throughout. Back: No spinal tenderness. No costovertebral tenderness. Full range of motion. Skin: Warm, dry with normal turgor. Normal color with no rashes, no lesions, and no evidence of cellulitis. Neuro: Awake and alert, GCS 15, oriented to person, place, time, and situation. Cranial nerves II-XII grossly intact. Motor strength 5/5 in all extremities. Sensory grossly intact. 18:05 Musculoskeletal/extremity: Extremities: grossly normal except: noted in the right leg: Patient has an externally rotated right leg with approximately 1 inch leg length discrepancy when compared to the left leg. Normal sensation present with normal motion of his foot and toes., Circulation is intact in all extremities. Vital Signs: 17:25 BP 132 / 102; Pulse 90; Resp 14 S; Temp 98.7(A); Pulse Ox 100% on R/A; Weight 95.25 kg; jg9 Height 6 ft. 2 in. (187.96 cm) (R); Pain 0/10; 18:45 BP 178 / 90; Pulse 94; Resp 17 S; Pulse Ox 96% on R/A; jg9 19:33 BP 146 / 94; Pulse 95; Resp 16; Temp 98.1(O); Pulse Ox 99% on R/A; Pain 0/10; lp1 20:30 BP 165 / 72; Pulse 90; Resp 16; Pulse Ox 96% on R/A; Pain 0/10; lp1 17:25 Body Mass Index 26.96 (95.25 kg, 187.96 cm) jg9 MDM: 17:23 Patient medically screened. jr8 18:05 Data reviewed: vital signs, nurses notes, lab test result(s), EKG, radiologic studies, jr plain films. Data interpreted: Pulse oximetry: on room air is 100 %. Interpretation: normal. Counseling: I had a detailed discussion with the patient and/or guardian regarding: the historical points, exam findings, and any diagnostic results supporting the discharge/admit diagnosis, lab results, radiology results, the need to transfer to another facility, [facility] does not immediately have the required specialist. 20:44 ED course: Patient's son at bedside who has medical power of divorce attorney. He will be going pm1 to the hospital with his father. Patient does not want pain medications now but would like some prior to going into the EMS truck. 10/06 17:25 Order name: Basic Metabolic Panel; Complete Time: 18:16 10/06 17:25 Order name: CBC with Diff; Complete Time: 18:36 8 10/06 17:25 Order name: PT-INR; Complete Time: 17:53 10/06 17:25 Order name: XRAY Chest (1 view); Complete Time: 18:30 8 10/06 17:26 Order name: COVID-19 SARS RT PCR (Document "Date of Onset" if Symptomatic); Complete [facility] Time: 18:59 10/06 18:36 Order name: CBC Smear Scan; Complete Time: 18:36 EDMS 10/06 17:25 Order name: EKG; Complete Time: 17:26 10/06 17:25 Order name: Cardiac monitoring; Complete Time: 17:46 10/06 17:25 Order name: EKG - Nurse/Tech; Complete Time: 17:46 10/06 17:25 Order name: XRAY Hip RIGHT 2 view; Complete Time: 18:30 10/06 18:08 Order name: CT Head Brain wo Cont; Complete Time: 18:59 10/06 17:25 Order name: IV Saline Lock; Complete Time: 17:46 10/06 17:25 Order name: Labs collected and sent; Complete Time: 17:46 10/06 17:25 Order name: O2 Per Protocol; Complete Time: 19:32 10/06 17:25 Order name: O2 Sat Monitoring; Complete Time: 17:46 10/06 17:46 Order name: Davis; Complete Time: 18:48 Administered Medications: 18:43 Drug: Ringers - Lactated Ringers Solution 1000 ml Route: IV; Rate: bolus; Site: left jh6 hand; 21:30 Drug: morphine 4 mg {Note: RASS 0.} Route: IVP; Site: right forearm; lp1 21:42 Follow up: Response: Medication administered at discharge. lp1 21:30 Drug: Zofran (Ondansetron) 4 mg Route: IVP; Site: right forearm; lp1 21:42 Follow up: Response: Medication administered at discharge. lp1 Disposition Summary: 10/06/21 19:30 Transfer Ordered Transfer Location: [facility] jr8 Reason: Higher level of care jr8 Condition: Stable jr8 Problem: new jr8 Symptoms: have improved jr8 Accepting Physician[place] [facility] [place] 21:42[place] lp1 Diagnosis - Displaced intertrochanteric fracture of right femur jr8 Forms: - Medication Reconciliation Form jr8 - SBAR form jr8 Signatures: Dispatcher [employer] EDMS Opal Bhakta RN RN lp1 Hernesto Khan PA PA jr8 Sean Clemons NP [employer] pm1 Anya Nava RN RN jh6 Anya Zhang RN RN jg9 Corrections: (The following items were deleted from the chart) 21:41 19:30 [facility] jr8 lp1 21:42 21:41 [facility] lp1 lp1
[2021-10-06] MEDS ORDERED: MORPHINE 4 MG/ML SYR ONE (21:33)
[2021-10-06] MEDS ORDERED: ONDANSETRON 4 MG/2 ML VIAL ONE (21:33)
--- NOTE | 2021-10-07 07:12 | EKG ---
Test Date: 2021-10-06 Test Time: 17:34:05 Material Liaison: MARCELLA MEASUREMENT RESULTS: Intervals: Rate: 83 WV: 152 QRSD: 86 QT: 368 QTc: 432 [place]: P: 73 WV: 152 QRS: 27 T: 85 INTERPRETIVE STATEMENTS: Sinus rhythm with occasional premature ventricular complexes Possible Inferior infarct, age undetermined Abnormal ECG Compared to ECG 02/03/2020 15:49:59 Ventricular premature complex(es) now present Sinus arrhythmia no longer present Myocardial infarct finding still present Electronically Signed On 10-07-21 07:09:36 CDT by Chance Stephens
[2021-10-07 12:58] VITALS: TEMP 98.1
[2021-10-07 13:00] VITALS: BP 165/72; O2SAT 96
== END 2021-10-06 21:42 | disposition short-term general hospital (02) ==
LOC: ER 17:18
DX: S72.141A Displaced intertrochanteric fracture of right femur, initial encounter for closed fracture (principal); W19.XXXA Unspecified fall, initial encounter; Y92.009 Unspecified place in unspecified non-institutional (private) residence as the place of occurrence of the external cause; F03.90 Unspecified dementia, unspecified severity, without behavioral disturbance, psychotic disturbance, mood disturbance, and anxiety; E11.9 Type 2 diabetes mellitus without complications; E03.9 Hypothyroidism, unspecified; Z20.822 Contact with and (suspected) exposure to COVID-19
CPT/HCPCS: 93005; 85025; 80048; 36415; 85610; 70450; 71045; 73502; 51702; 99285; U0003; J7120; J2405